=== PATIENT | female | born 1950 | race Caucasian/White ===

== ENCOUNTER 2020-11-13 22:13 | Inpatient (IN) | payer MEDICARE, OTHER, SELFPAY ==
[2020-11-13] VITALS (7 sets, daily range): BP systolic 102–109; BP diastolic 50–54; PULSE 64–99; RESP 19–30; TEMP 36.5; O2SAT 93–100
--- NOTE | 2020-11-13 22:28 | DI.CT.S_ITS ---
PROCEDURE: CT HEAD/BRAIN WO CON INDICATIONS: AMS TECHNIQUE: Noncontrast 4.5 mm thick angled axial sections acquired from the foramen magnum to the vertex, with coronal and sagittal reformats. For radiation dose reduction, the following was used: automated exposure control, adjustment of mA and/or kV according to patient size. COMPARISON: None. FINDINGS: Image quality: Excellent. CSF spaces: Basal cisterns are patent. No extra-axial fluid collections. The ventricles are symmetric in size and shape. Brain: No intracranial bleeds or masses. There is cerebral volume loss for age, with resultant ventricular and sulcal prominence. There are periventricular and deep white matter chronic small vessel ischemic changes. There is intracranial internal carotid artery atherosclerosis. Skull and face: Calvarium and visualized facial bones appear intact, without suspicious lesions. Sinuses: Visualized sinuses and mastoids are clear. IMPRESSION: No acute intracranial disease process. Dictated by: Velia John MD, PhD on 11/14/2020 at 7:21 Approved by: Velia John MD, PhD on 11/14/2020 at 7:22
--- NOTE | 2020-11-13 22:29 | ED_ITS ---
HPI - Nausea/Vomiting/Diarrhea General Chief complaint: Nausea/Vomiting/Diarrhea Stated complaint: vomiting/ Time Seen by Provider: 11/13/20 22:26 Source: patient and family () Mode of arrival: Wheelchair Limitations: no limitations History of Present Illness HPI Narrative: Patient is a 69-year-old female who arrives to the emergency department by private vehicle for evaluation of 3 days of nausea vomiting and diarrhea. According to the patient's and the patient she has had multiple falls during this time. She states that she has become very lightheaded when she stands up. In triage there was a short period of time where the triage nurse states that the patient became unresponsive. She seems to be much better laying in a supine position. Patient states that she has had black colored stools over the past couple days. Over the past 24 hours has also vomited a substance which the thought was very dark colored. She denies alcohol use. Occasionally uses nonsteroidal anti-inflammatories but not and they long time. States she only occasionally uses aspirin as well. Had a col onoscopy approximately 1.5 years ago. She states the took polyps out at the time and was told to follow-up in 3 years. No recent travel. No recent antibiotic use. Related Data Home Medications Medication Instructions Recorded Confirmed CA PANTOTHENATE/FOLIC ACID/VIT 1 tab PO Q DAY #0 06/22/11 11/14/20 (MULTIVITAMIN) CHOLECALCIFEROL (VITAMIN D3) 2,000 iu PO Q DAY #0 06/22/11 11/14/20 (Vitamin D) MAGNESIUM (#LIQUID MAGNESIUM) 500 mg PO Q DAY #0 06/22/11 11/14/20 adalimumab [Humira] 028 Days #2 04/07/12 levothyroxine [Synthroid] 75 mcg PO DAILY 090 Days #90 04/07/12 11/14/20 losartan 60 mg PO DAILY 090 Days #270 04/07/12 11/14/20 metformin [Glucophage] 500 mg PO DAILY 090 Days #270 04/07/12 11/14/20 spironolactone 25 mg PO DAILY 090 Days #90 04/07/12 11/14/20 aspirin 81 mg PO DAILY 11/14/20 11/14/20 atorvastatin 10 mg PO BEDTIME 11/14/20 11/14/20 folic acid 800 mcg PO DAILY 11/14/20 11/14/20 sitagliptin [Januvia] 50 mg PO DAILY 11/14/20 11/14/20 Allergies Allergy/AdvReac Type Severity Reaction Status Date / Time No Known Drug Allergies Allergy Verified 11/13/20 23:52 Review of Systems Constitutional Constitutional: Reports fatigue, Denies fever(s), Denies headache(s), Reports lethargy, Reports malaise and Reports weakness Eyes Eyes: Denies change in vision ENT Ears, Nose, Mouth, and Throat: Denies vertigo, Reports dizziness, Denies headache(s), Reports disequilibrium and Denies sore throat Cardiovascular Cardiovascular: Denies chest pain, Denies rapid heart rate and Denies dyspnea Respiratory Respiratory: Denies dyspnea Gastrointestinal Gastrointestinal: Reports melena, Reports coffee ground emesis, Reports diarrhea, Reports nausea and Reports vomiting Genitourinary Genitourinary: Denies dysuria Genitourinary: Denies dysuria and Denies vaginal discharge Musculoskeletal Musculoskeletal: Denies arthralgias and Denies myalgias Integumentary/Breasts Skin/Breast: Denies lesions and Denies rash Neurologic Neurologic: Reports confusion, Denies vertigo, Reports dizziness, Denies headache(s), Denies localized weakness, Reports disequilibrium and Reports weakness Psychiatric Psychiatric: Reports confusion Endocrine Endocrine: Reports fatigue Hematologic/Lymphatic Hematologic/Lymphatic: Denies easy bleeding and Denies easy bruising On Anticoagulants: No Allergic/Immunologic Allergic/Immunologic: Denies urticaria Patient History Medical History Acquired hypothyroidism Essential hypertension History of colon polyps Hyperlipidemia Non-insulin dependent type 2 diabetes mellitus Psoriasis Surgical History (Updated 11/14/20 @ 03:35 by JESÚS Mike) History of colonoscopy History of hysterectomy Family History (Updated 11/14/20 @ 04:10 by JESÚS Mike) Father Cancer Mother Cancer Social History marital status: lives independently: Yes Exam Initial Vital Signs Initial Vital Signs: Vital Signs Temperature 97.7 F 11/13/20 22:24 Pulse Rate 94 H 11/13/20 22:24 Respiratory Rate 22 11/13/20 22:24 Blood Pressure 106/54 L 11/13/20 22:24 Pulse Oximetry 93 11/13/20 22:24 Const General: ill appearing Limitations: mental status not altered HENIL Head: normal to inspection and normocephalic Ears: hearing grossly normal bilaterally Face and sinus: normal facial exam Eyes EOM: EOM intact bilaterally Chest Chest: No crepitus and No tenderness Resp Effort & Inspection: normal respiratory effort Auscultation: clear to auscultation bilaterally Cardio Rate: regular rate Rhythm: regular rhythm GI Palpation: soft, No firm and No tender Rectal Exam: heme positive stool Skin Lesions: no lesions Rashes: no rashes Neuro General: patient alert, patient awake and patient oriented x3 Cranial Nerves: CN's II-XI intact bilaterally Cognition: normal cognition Speech: speech normal Extrem General: capillary refill normal Psych Appearance: grossly normal and well kempt Scores GCS [place] coma scale eye opening: Spontaneous [place] coma scale verbal response: Orientated [place] coma scale motor response: Obey commands [place] coma scale total score: 15 Course Orders Ordered: ED Orders 11/13/20 22:20 Partial Thromboplastin Time Stat Prothrombin Time INR Stat 11/13/20 22:23 COVID19 Stat Complete Blood Count AUTO DIFF Stat Comprehensive Metabolic Panel Stat Ethanol (ETOH) Stat Ketones (Beta-Hydroxybutyrate) Stat Lactate (Lactic Acid) Stat Lipase Stat Magnesium Stat Phosphorous Stat Procalcitonin Stat Troponin & CK Cardiac Panel Stat 11/13/20 22:28 CT head/brain wo con Stat EKG-12 Lead Stat 11/13/20 22:44 CT abdomen pelvis wo con Stat 11/13/20 22:45 Ammonia (NH3) Stat Packed Cells Stat Type and Screen Stat 11/14/20 00:27 Venous Blood Gas Stat 11/14/20 01:16 Blood Culture Stat Dextrose (Dextrose 50 % In Water 25 Gm/50 Ml Syringe) 25 gm IV PRN PRN; Protocol PRN Reason: Hypoglycemia Hydromorphone HCl (Hydromorphone 0.5 Mg Inj) 0.5 mg IV Q6H PRN PRN Reason: Pain, Moderate (4-6) Sodium Chloride (Normal Saline 0.9%) 1,000 mls @ 150 mls/hr IV CONT EUSEBIA Pantoprazole Sodium 80 mg/ (Sodium Chloride) 100 mls @ 10 mls/hr IV CONT EUSEBIA Stop: 11/17/20 01:16 Last Admin: 11/14/20 01:50 Dose: 8 mg/hr, 10 mls/hr Documented by: ARELY Piperacillin/Tazobactam/Dextrose (Zosyn) 3.375 gm in 50 mls @ 100 mls/hr IV Q6H [facility] [place] Last Admin: 11/14/20 03:54 Dose: Not Given Documented by: KASHMIR Insulin Aspart (Insulin Aspart 100 Unit/Ml Insuln Pen) 0 unit SUBCUT ACHS [facility] [place]; Protocol Levothyroxine Sodium (Levothyroxine Inj 100 Mcg/5 Ml Vial) 75 mcg IV DAILY@1700 EUSEB[place] Naloxone HCl (Naloxone 0.4 Mg/Ml Vial) 0.2 mg IV Q2MIN PRN PRN Reason: Opiate Reversal Ondansetron HCl (Ondansetron 4 Mg/2 Ml Inj) 4 mg IV Q8HR PRN PRN Reason: Nausea And Vomiting Discontinued Medications Sodium Chloride (Normal Saline 0.9%) 1,000 mls @ 1,000 mls/hr IV BOLUS ONE Stop: 11/13/20 23:26 Last Infusion: 11/14/20 04:51 Dose: 0 mls/hr Documented by: Admin: 11/14/20 04:00 Dose: 1,000 mls/hr Documented by: KASHMIR Sodium Chloride (Normal Saline 0.9%) 1,000 mls @ 150 mls/hr IV CONT EUSEBIA Sodium Chloride (Normal Saline 0.9%) 1,000 mls @ 100 mls/hr IV CONT EUSEBIA Last Admin: 11/13/20 23:41 Dose: 100 mls/hr Documented by: ARELY Piperacillin/Tazobactam/Dextrose (Zosyn) 3.375 gm in 50 mls @ 100 mls/hr IV NOW ONE Stop: 11/14/20 01:24 Last Infusion: 11/14/20 01:43 Dose: 0 mls/hr Documented by: Admin: 11/14/20 01:07 Dose: 100 mls/hr Documented by: ARELY Pantoprazole Sodium 80 mg/ (Sodium Chloride) 100 mls @ 10 mls/hr IV CONT EUSEBIA Sodium Chloride (Normal Saline 0.9%) 500 mls @ 1,000 mls/hr IV BOLUS ONE Stop: 11/14/20 04:25 Last Admin: 11/14/20 04:00 Dose: 1,000 mls/hr Documented by: SSARDEL Ondansetron HCl (Ondansetron 4 Mg/2 Ml Inj) 4 mg IV NOW ONE Stop: 11/13/20 23:45 Last Admin: 11/13/20 23:45 Dose: Not Given Documented by: ARELY Pantoprazole Sodium (Pantoprazole 40 Mg Vial) 80 mg IV NOW ONE Stop: 11/14/20 00:55 Last Admin: 11/14/20 01:05 Dose: 80 mg Documented by: ARELY Vital Signs Vital signs: Vital Signs - 8 hr 11/13/20 22:24 11/13/20 23:00 11/13/20 23:12 Temperature 97.7 F Pulse Rate 94 H 95 H 93 H Respiratory Rate 22 19 30 H Blood Pressure 106/54 L 109/54 L Pulse Oximetry 93 100 100 11/13/20 23:34 11/13/20 23:38 11/13/20 23:40 Temperature Pulse Rate 64 99 H 96 H Respiratory Rate 25 H 29 H Blood Pressure 102/50 L 105/51 L Pulse Oximetry 98 100 100 11/13/20 23:50 11/14/20 00:00 11/14/20 00:10 Temperature Pulse Rate 92 H 99 H 99 H Respiratory Rate 23 24 25 H Blood Pressure 103/53 L 106/53 L 103/52 L Pulse Oximetry 100 100 100 11/14/20 00:20 11/14/20 00:30 11/14/20 00:40 Temperature Pulse Rate 97 H 95 H 104 H Respiratory Rate 25 H 27 H 27 H Blood Pressure 104/54 L 97/51 L 101/48 L Pulse Oximetry 100 100 99 11/14/20 00:44 11/14/20 00:50 11/14/20 00:52 Temperature 97.8 F 97.8 F Pulse Rate 107 H 99 H 101 H Respiratory Rate 25 H 27 H 25 H Blood Pressure 101/48 L 111/53 L 111/53 L Pulse Oximetry 100 100 11/14/20 01:00 Temperature Pulse Rate 98 H Respiratory Rate Blood Pressure 101/52 L Pulse Oximetry 100 MDM - Nausea/Vomiting/Diarrhea Medical Records Attestation: I reviewed the patient's medical records. Lab Data Attestation: I reviewed the patient's lab results. Result diagrams: 11/14/20 03:26 11/13/20 22:23 Labs: Lab Results 11/13/20 11/13/20 11/13/20 Range/Units 22:20 22:23 22:23 WBC 30.4 H* (4.5-11.0) X10^3/uL RBC 1.70 L (4.0-5.2) X10^6/uL Hgb 4.2 L* (12.0-16.0) g/dL Hct 14.2 L* (36-46) % MCV 83.5 (80-100) fL MCH 24.9 L (26-34) PG MCHC 29.8 L (30-36) % RDW 19.8 H (11.6-14.8) % Plt Count 287 (150-400) X10^3/uL Neut % (Auto) Not Reportable Lymph % (Auto) Not Reportable Sullivan % (Auto) Not Reportable Eos % (Auto) Not Reportable Baso % (Auto) Not Reportable Lymph # (Auto) Not Reportable Sullivan # (Auto) Not Reportable Baso # (Auto) Not Reportable Total Counted 100 Seg Neutrophils % 78.0 H (38-70) % Lymphocytes % (Manual) 20.0 L (25-45) % Monocytes % (Manual) 2.0 (2-11) % Neutrophils # (Manual) 23259 H (3449-5928) /uL Nucleated RBCs 1 H ( - 0) #/Diff RBC Morphology Not Reportable Anisocytosis 2+ H PT 15.7 H (10.1-12.7) SECONDS INR 1.4 H (0.9-1.3) APTT 26 L (26.4-36.2) SECONDS VBG pH (7.33-7.43) VBG pCO2 (45-50) mmHg VBG pO2 (35-45) mmHg VBG HCO3 (23-28) mmol/L VBG Total CO2 (24-29) mmol/L VBG O2 Saturation (70-75) % VBG Base Excess (0-4) mmol/L Sodium (137-145) mmol/L Potassium (3.4-5.1) mmol/L Chloride (98-107) mmol/L Carbon Dioxide (22-32) mmol/L BUN (7-17) mg/dL Creatinine (0.52-1.04) mg/dL Estimated GFR (>60) mL/min BUN/Creatinine Ratio (6-22) Glucose (80-110) mg/dL Lactate (0.7-2.1) mmol/L Calcium (8.4-10.2) mg/dL Phosphorus (2.8-4.1) mg/dL Magnesium (1.6-2.3) mg/dL Total Bilirubin (0.2-1.3) mg/dL AST (14-36) IU/L ALT (<35) IU/L Alkaline Phosphatase (38-126) U/L Ammonia (9-30) umol/L Total Creatine Kinase (30-135) U/L CK-MB (CK-2) (<2.37) ng/mL CK-MB (CK-2) Rel Index (1.5-5.0) % Troponin I (0.01-0.034) ng/mL Total Protein (6.3-8.2) g/dL Albumin (3.5-5.0) g/dL Globulin (1.7-4.1) g/dL Albumin/Globulin Ratio (1.0-2.8) Lipase (23-300) U/L Procalcitonin (<0.5) ng/mL Ethyl Alcohol ( - 10) mg/dL Ketones (<0.27) mmol/L SARS-CoV-2 (PCR) Negative (Negative) Blood Type Antibody Screen Crossmatch 11/13/20 11/13/20 11/13/20 Range/Units 22:23 22:23 22:23 WBC (4.5-11.0) X10^3/uL RBC (4.0-5.2) X10^6/uL Hgb (12.0-16.0) g/dL Hct (36-46) % MCV (80-100) fL MCH (26-34) PG MCHC (30-36) % RDW (11.6-14.8) % Plt Count (150-400) X10^3/uL Neut % (Auto) Lymph % (Auto) Sullivan % (Auto) Eos % (Auto) Baso % (Auto) Lymph # (Auto) Sullivan # (Auto) Baso # (Auto) Total Counted Seg Neutrophils % (38-70) % Lymphocytes % (Manual) (25-45) % Monocytes % (Manual) (2-11) % Neutrophils # (Manual) (0685-5900) /uL Nucleated RBCs ( - 0) #/Diff RBC Morphology Anisocytosis PT (10.1-12.7) SECONDS INR (0.9-1.3) APTT (26.4-36.2) SECONDS VBG pH (7.33-7.43) VBG pCO2 (45-50) mmHg VBG pO2 (35-45) mmHg VBG HCO3 (23-28) mmol/L VBG Total CO2 (24-29) mmol/L VBG O2 Saturation (70-75) % VBG Base Excess (0-4) mmol/L Sodium 138 (137-145) mmol/L Potassium 4.6 (3.4-5.1) mmol/L Chloride 105 (98-107) mmol/L Carbon Dioxide 11 L (22-32) mmol/L BUN 106 H* (7-17) mg/dL Creatinine 2.38 H (0.52-1.04) mg/dL Estimated GFR 20.3 L (>60) mL/min BUN/Creatinine Ratio 44.5 H (6-22) Glucose 205 H (80-110) mg/dL Lactate (0.7-2.1) mmol/L Calcium 9.8 (8.4-10.2) mg/dL Phosphorus 7.8 H (2.8-4.1) mg/dL Magnesium 2.3 (1.6-2.3) mg/dL Total Bilirubin 0.3 (0.2-1.3) mg/dL AST 63 H (14-36) IU/L ALT 66 H (<35) IU/L Alkaline Phosphatase 112 (38-126) U/L Ammonia (9-30) umol/L Total Creatine Kinase 164 H (30-135) U/L CK-MB (CK-2) 4.26 H (<2.37) ng/mL CK-MB (CK-2) Rel Index 2.6 (1.5-5.0) % Troponin I 0.037 H (0.01-0.034) ng/mL Total Protein 6.0 L (6.3-8.2) g/dL Albumin 3.2 L (3.5-5.0) g/dL Globulin 2.8 (1.7-4.1) g/dL Albumin/Globulin Ratio 1.1 (1.0-2.8) Lipase 516 H (23-300) U/L Procalcitonin 0.28 (<0.5) ng/mL Ethyl Alcohol < 10 ( - 10) mg/dL Ketones 0.49 H (<0.27) mmol/L SARS-CoV-2 (PCR) (Negative) Blood Type Antibody Screen Crossmatch 11/13/20 11/13/20 11/13/20 Range/Units 22:23 22:45 22:45 WBC (4.5-11.0) X10^3/uL RBC (4.0-5.2) X10^6/uL Hgb (12.0-16.0) g/dL Hct (36-46) % MCV (80-100) fL MCH (26-34) PG MCHC (30-36) % RDW (11.6-14.8) % Plt Count (150-400) X10^3/uL Neut % (Auto) Lymph % (Auto) Sullivan % (Auto) Eos % (Auto) Baso % (Auto) Lymph # (Auto) Sullivan # (Auto) Baso # (Auto) Total Counted Seg Neutrophils % (38-70) % Lymphocytes % (Manual) (25-45) % Monocytes % (Manual) (2-11) % Neutrophils # (Manual) (1613-2524) /uL Nucleated RBCs ( - 0) #/Diff RBC Morphology Anisocytosis PT (10.1-12.7) SECONDS INR (0.9-1.3) APTT (26.4-36.2) SECONDS VBG pH (7.33-7.43) VBG pCO2 (45-50) mmHg VBG pO2 (35-45) mmHg VBG HCO3 (23-28) mmol/L VBG Total CO2 (24-29) mmol/L VBG O2 Saturation (70-75) % VBG Base Excess (0-4) mmol/L Sodium (137-145) mmol/L Potassium (3.4-5.1) mmol/L Chloride (98-107) mmol/L Carbon Dioxide (22-32) mmol/L BUN (7-17) mg/dL Creatinine (0.52-1.04) mg/dL Estimated GFR (>60) mL/min BUN/Creatinine Ratio (6-22) Glucose (80-110) mg/dL Lactate 12.6 H* (0.7-2.1) mmol/L Calcium (8.4-10.2) mg/dL Phosphorus (2.8-4.1) mg/dL Magnesium (1.6-2.3) mg/dL Total Bilirubin (0.2-1.3) mg/dL AST (14-36) IU/L ALT (<35) IU/L Alkaline Phosphatase (38-126) U/L Ammonia 19 (9-30) umol/L Total Creatine Kinase (30-135) U/L CK-MB (CK-2) (<2.37) ng/mL CK-MB (CK-2) Rel Index (1.5-5.0) % Troponin I (0.01-0.034) ng/mL Total Protein (6.3-8.2) g/dL Albumin (3.5-5.0) g/dL Globulin (1.7-4.1) g/dL Albumin/Globulin Ratio (1.0-2.8) Lipase (23-300) U/L Procalcitonin (<0.5) ng/mL Ethyl Alcohol ( - 10) mg/dL Ketones (<0.27) mmol/L SARS-CoV-2 (PCR) (Negative) Blood Type O Positive Antibody Screen Negative Crossmatch See Detail 11/14/20 Range/Units 00:27 WBC (4.5-11.0) X10^3/uL RBC (4.0-5.2) X10^6/uL Hgb (12.0-16.0) g/dL Hct (36-46) % MCV (80-100) fL MCH (26-34) PG MCHC (30-36) % RDW (11.6-14.8) % Plt Count (150-400) X10^3/uL Neut % (Auto) Lymph % (Auto) Sullivan % (Auto) Eos % (Auto) Baso % (Auto) Lymph # (Auto) Sullivan # (Auto) Baso # (Auto) Total Counted Seg Neutrophils % (38-70) % Lymphocytes % (Manual) (25-45) % Monocytes % (Manual) (2-11) % Neutrophils # (Manual) (2185-7117) /uL Nucleated RBCs ( - 0) #/Diff RBC Morphology Anisocytosis PT (10.1-12.7) SECONDS INR (0.9-1.3) APTT (26.4-36.2) SECONDS VBG pH 7.25 L (7.33-7.43) VBG pCO2 32.9 L (45-50) mmHg VBG pO2 23 L (35-45) mmHg VBG HCO3 15 L (23-28) mmol/L VBG Total CO2 16 L (24-29) mmol/L VBG O2 Saturation 32 L (70-75) % VBG Base Excess -13.0 L (0-4) mmol/L Sodium (137-145) mmol/L Potassium (3.4-5.1) mmol/L Chloride (98-107) mmol/L Carbon Dioxide (22-32) mmol/L BUN (7-17) mg/dL Creatinine (0.52-1.04) mg/dL Estimated GFR (>60) mL/min BUN/Creatinine Ratio (6-22) Glucose (80-110) mg/dL Lactate (0.7-2.1) mmol/L Calcium (8.4-10.2) mg/dL Phosphorus (2.8-4.1) mg/dL Magnesium (1.6-2.3) mg/dL Total Bilirubin (0.2-1.3) mg/dL AST (14-36) IU/L ALT (<35) IU/L Alkaline Phosphatase (38-126) U/L Ammonia (9-30) umol/L Total Creatine Kinase (30-135) U/L CK-MB (CK-2) (<2.37) ng/mL CK-MB (CK-2) Rel Index (1.5-5.0) % Troponin I (0.01-0.034) ng/mL Total Protein (6.3-8.2) g/dL Albumin (3.5-5.0) g/dL Globulin (1.7-4.1) g/dL Albumin/Globulin Ratio (1.0-2.8) Lipase (23-300) U/L Procalcitonin (<0.5) ng/mL Ethyl Alcohol ( - 10) mg/dL Ketones (<0.27) mmol/L SARS-CoV-2 (PCR) (Negative) Blood Type Antibody Screen Crossmatch Point of Care Testing Glucose POC [address] scan - head: Radiologist's Impression: No acute intracranial abnormality CT scan - abdomen/pelvis: Radiologist's Impression: Suspect colitis throughout the ascending transverse and descending colon segments Sigmoid colon diverticulosis without diverticulitis No free air-fluid ECG Data Attestation: I personally reviewed and interpreted this ECG as follows: Prior ECG tracings: not available for review Interpretation: Sinus rhythm Ventricular rate of 96 Normal axis Normal QRS Normal QTC No ST T wave changes MDM Narrative Medical decision making narrative: Patient does have black tarry stools that is Hemoccult positive. She has not vomited here in the ER. CT scan shows a aaron colitis. Patient is anemic. 2 units of packed red blood cells ordered and administered here in the ER. Also has an elevated lactate, elevated BUN, elevated creatinine and decreased GFR. I suspect all this is secondary to upper GI bleed. Unsure the exact etiology is the patient denies any of the common issues that would cause this. Patient was started on PPI. Discussed the case with General surgery who stated that they would be happy to see the patient however patient does need to be admitted to medicine for further resuscitation and evaluation. Discussed the case with and [facility] got [facility] provider. Patient was started on antibiotics. Blood cultures were obtained, I do have low suspicion for DKA. I suspect that the acidosis is secondary to the elevated lactate. Will admit for further evaluation and treatment. Critical Care Time Critical Care Time Critical Care Time: Yes Total Critical Care Time: 35 Attestation: The high probability of a clinically significant, sudden or life threatening deterioration of the hematologic, renal, cardiovascular system(s) required my full and direct attention, intervention and personal management. The aggregate critical care time was 35 minutes. This time is in addition to time spent performing reported procedures but includes the following: [X] Data Review and interpretation [X] Patient assessment and monitoring of vital signs [X] Documentation [X] Medication orders and management Discharge Plan Departure Patient Disposition: Admitted As Inpatient Clinical Impression: Acute GI bleeding, Anemia, Hyperglycemia Admit Date/Time: 11/14/20 01:02 Admit Provider: Juan F Summers
--- NOTE | 2020-11-13 22:44 | DI.CT.S_ITS ---
PROCEDURE: CT ABDOMEN PELVIS WO CON INDICATIONS: GI bleed TECHNIQUE: Noncontrast 5 mm thick sections acquired from the diaphragms to the symphysis. 5 mm coronal and sagittal reformats were then performed. For radiation dose reduction, the following was used: automated exposure control, adjustment of mA and/or kV according to patient size. COMPARISON: None. FINDINGS: Image quality: Excellent. ABDOMEN: Lung bases: Lung bases are clear. Heart size is normal. Solid organs: The liver has an irregular contour consistent with cirrhosis. No liver mass. Gallbladder is normal. Pancreas has multiple cysts of the head and body measuring up to 13 x 12 millimeters. No pancreatic ductal dilatation. Spleen is normal in size. The right adrenal gland has a mass measuring 2.9 x 2.7 centimeters and 9 Hounsfield units. The left adrenal gland is normal normal. The left kidney has a 9 x 12 millimeter calculus in the renal pelvis with no hydronephrosis. Peritoneum and bowel: Unenhanced bowel loops demonstrate normal wall thickness and caliber. No free fluid or air. Sigmoid colon diverticulosis without evidence of diverticulitis. Possible mural thickening involving the right hemicolon through the descending colon segment with mild surrounding edema. The appendix is not identified. The small bowel and stomach are normal. Nodes and vessels: No retroperitoneal or mesenteric adenopathy by size criteria. Aorta and inferior vena cava are normal in caliber. The aorta has atherosclerotic calcifications. Miscellaneous: No ventral hernias. PELVIS: Genitourinary: Bladder wall thickness is normal. Miscellaneous: No inguinal hernias or adenopathy. Bones: Degenerative changes with no focal abnormality. Grade 4 osteoarthritis of the right hip. No suspicious bony lesions. No vertebral body compression fractures. IMPRESSION: 1. Suspect colitis through the ascending, transverse, and descending colon segments. 2. Diverticulosis without evidence of diverticulitis. 3. No free air or free fluid. No pneumatosis. 4. 12 x 9 millimeter calculus in the left renal pelvis without hydronephrosis. 5. Low density nodule of the right adrenal gland consistent with a benign lipid rich adenoma. Comment: Final report is concordant with preliminary interpretation by [facility] Dictated by: Corby Tipton M.D. on 11/14/2020 at 8:01 Approved by: Corby Tipton M.D. on 11/14/2020 at 8:07
[2020-11-13 22:46] LABS: COVID19 -Nasal RAPID Negative (Negative); Mean Corpuscular HGB Conc 29.8 % (30-36); Mean Corpuscular Hemoglobin 24.9 PG (26-34); Mean Corpuscular Volume 83.5 fL (80-100); Platelet Count 287 X10^3/uL (150-400); Red Cell Distribution Width 19.8 % (11.6-14.8)
[2020-11-13 22:49] LABS: Albumin 3.2 g/dL (3.5-5.0); Albumin Globulin Ratio 1.1 (1.0-2.8); Alkaline Phosphatase 112 U/L (38-126); Aspartate Aminotransferase 63 IU/L (14-36); BUN Creatinine Ratio 44.5 (6-22); Bilirubin Total 0.3 mg/dL (0.2-1.3); Calcium 9.8 mg/dL (8.4-10.2); Carbon Dioxide 11 mmol/L (22-32); Chloride 105 mmol/L (98-107); Estimated Glomerular Filt Rate 20.3 mL/min (>60); Globulin 2.8 g/dL (1.7-4.1); Glucose 205 mg/dL (80-110); HEMOLYSIS < 15 (0-50); Potassium 4.6 mmol/L (3.4-5.1); Sodium 138 mmol/L (137-145)
[2020-11-13 22:52] LABS: Blood Urea Nitrogen 106 mg/dL (7-17)
[2020-11-13 22:53] LABS: Hemoglobin 4.2 g/dL (12.0-16.0); White Blood Cell Count 30.4 X10^3/uL (4.5-11.0)
[2020-11-13 22:54] LABS: Add Manual Diff / Slide Review YES; Hematocrit 14.2 % (36-46)
[2020-11-13 22:55] LABS: Alanine Aminotransferase 66 IU/L (<35)
[2020-11-13 23:02] LABS: INR 1.4 (0.9-1.3); Prothrombin Time 15.7 SECONDS (10.1-12.7)
[2020-11-13 23:03] LABS: Lactate (Lactic Acid) 12.6 mmol/L (0.7-2.1)
[2020-11-13 23:04] LABS: PTT Partial Thromboplastin Tim 26 SECONDS (26.4-36.2)
[2020-11-13 23:06] LABS: Creatine Kinase 164 U/L (30-135); Ethanol (ETOH) < 10 mg/dL; Lipase 516 U/L (23-300); Magnesium 2.3 mg/dL (1.6-2.3); Phosphorous 7.8 mg/dL (2.8-4.1)
[2020-11-13 23:15] LABS: Ammonia (NH3) 19 umol/L (9-30)
[2020-11-13 23:25] LABS: Troponin I 0.037 ng/mL (0.01-0.034)
[2020-11-13 23:32] LABS: Neutrophils Absolute Manual 23712 /uL (3000-5900); Nucleated Red Blood Cells 1 #/Diff; Total Cells Counted 100
[2020-11-13 23:36] LABS: Anisocytosis 2+
[2020-11-13 23:39] LABS: Procalcitonin 0.28 ng/mL (<0.5)
[2020-11-13] MEDS: SODIUM CHLORIDE 0.9% 1,000 ML 100 ML IV (23:41)
[2020-11-13] MEDS: ONDANSETRON 4 MG/2 ML INJ (23:41)
[2020-11-13 23:55] LABS: Ketones (Beta-Hydroxybutyrate) 0.49 mmol/L (<0.27)
[2020-11-14] VITALS (51 sets, daily range): BP systolic 73–137; BP diastolic 38–66; PULSE 76–107; RESP 15–35; TEMP 36.2–37.4; O2SAT 92–100; BMI 31.2
[2020-11-14 00:39] LABS: HCO3 VBG 15 mmol/L (23-28); Oxygen Saturation VBG 32 % (70-75); PCO2 VBG 32.9 mmHg (45-50); PO2 VBG 23 mmHg (35-45); Total CO2 VBG 16 mmol/L (24-29)
[2020-11-14 00:39] LABS: Reflexed Lactate in 2 Hours Y
[2020-11-14 00:40] LABS: pH VBG 7.25 (7.33-7.43)
[2020-11-14] MEDS: PANTOPRAZOLE 40 MG VIAL 80 MG IV (01:05)
[2020-11-14] MEDS: PIPERACILLIN-TAZO 3.375 GM/50 ML FROZ.PIGGY IV ×4 (01:07→19:07)
--- NOTE | 2020-11-14 01:25 | P.HP_ITS ---
History of Present Illness History of Present Illness Date Patient Seen: 11/14/20 Time Patient Seen: 02:45 Chief complaint: vomiting/ Narrative: Ms. Nicky Lopez is a 69-year-old female with a past medical history significant for hypertension, hyperlipidemia, [id number] diabetes type 2, psoriasis, hypothyroidism and colon polyps who presents to the emergency department with complaints of nausea, vomiting and diarrhea. The patient states her symptoms began 3 days ago with nausea vomiting developed coffee-ground emesis as well as red bloody diarrhea stool. The patient reports abdominal pain that is constant in the epigastrium and right upper quadrant with an overlay of crampy abdominal pain that is generalized. She dorsi history polyps found on colonoscopy in 2008 that was read told to return in the 3 years but has not followed up. She further reports associated fatigue and headache and has had sustained multiple falls at home in the last 3 days complaining of pain on palpation left buttock and left hip and left knee pain. Upon presentation to the ER in being taken back into the ER department the patient had a syncopal episode resolved with out intervention lying supine on stretcher. The patient denies complaints of fevers does endorse chills. She has headache and dizziness but denies nasal congestion or sore throat. She reports no chest pain or palpitations, shortness of breath and has an intermittent dry raspy cough. She has abdominal pain as described above with hematemesis. Patient reports normal bowel movements until 3 days ago developing hematochezia and melena. The patient has not yet stooled in the emergency department. The patient is typically ambulatory without use of assistive devices. Upon arrival to the ER the patient's temperature 97.7?, heart rate 94, blood pressure 106/54, respiratory rate of 22 saturating 93% on room air. Head CT is obtained related to falls finding no acute intracranial abnormalities. CT of the abdomen pelvis was completed without contrast related to the patient's chronic renal failure and low EGFR finding cirrhotic liver with no discrete mass in anterior pancreatic body water-dense and lesion measuring 13 x 12 mm. A right adrenal mass measuring 2.9 x 2.7 cm and a left renal pelvis is calculus measuring 11 x 9 mm, non distended:, sigmoid colon diverticulosis without inflammation, possible mural thickening involving the right hemicolon through the descending says colon segment with mild surrounding edema, no free air or fluid. Initial labs reveal a white count of 30.4 with neutrophils 23,712, hemoglobin of 4.2 and hematocrit of 14.2 with platelets of 287. She has a PT of 15.7, INR 1.4 and PTT of 26. Chemistry studies reveal a CO of 11, BUN 106, cr eatinine of 2.38 and a nonfasting glucose of 205. Magnesium is 2.3 and phosphate is 7.8. She has a total bilirubin of 0.3, AST is 60, AST of 66 and alkaline phosphatase of 112. Her albumin is 3.2. Lipase is elevated at 516. Serum ketones are 0.49, procalcitonin is 0.28 and lactic acid is 12.6 improving to 10.3 on re-evaluation. Total CK is 164 with a CK-MB being a 4.26 for an index of 2.6. Troponin is elevated at 0.037 in the setting of elevated creatinine. In the ER the patient received Zofran and was typed and screened and transfusion initiated with [address] Monsalve, general surgery, was contacted through the ER and and agrees contact. The patient received bolus of Protonix and started on Protonix infusion. The patient is admitted to the medicine service for acute severe anemia secondary to upper/lower GI bleeding. Patient History Medical History (Updated 11/14/20 @ 03:28 by JESÚS Mike) Acquired hypothyroidism Essential hypertension History of colon polyps Hyperlipidemia Non-insulin dependent type 2 diabetes mellitus Psoriasis Surgical History (Updated 11/14/20 @ 03:35 by JESÚS Mike) History of colonoscopy History of hysterectomy Family & Social History Family History (Updated 11/14/20 @ 04:09 by JESÚS Mike) Father Cancer Mother Cancer Meds Home Medications and Allergies Home Medications Medication Instructions Recorded Confirmed Type CA PANTOTHENATE/FOLIC ACID/VIT 1 tab PO Q DAY #0 06/22/11 11/14/20 History (MULTIVITAMIN) CHOLECALCIFEROL (VITAMIN D3) 2,000 iu PO Q DAY #0 06/22/11 11/14/20 History (Vitamin D) MAGNESIUM (#LIQUID MAGNESIUM) 500 mg PO Q DAY #0 06/22/11 11/14/20 History adalimumab [Humira] 028 Days #2 04/07/12 History levothyroxine [Synthroid] 75 mcg PO DAILY 090 Days #90 04/07/12 11/14/20 History losartan 60 mg PO DAILY 090 Days #270 04/07/12 11/14/20 History metformin [Glucophage] 500 mg PO DAILY 090 Days #270 04/07/12 11/14/20 History spironolactone 25 mg PO DAILY 090 Days #90 04/07/12 11/14/20 History aspirin 81 mg PO DAILY 11/14/20 11/14/20 History atorvastatin 10 mg PO BEDTIME 11/14/20 11/14/20 History folic acid 800 mcg PO DAILY 11/14/20 11/14/20 History sitagliptin [Januvia] 50 mg PO DAILY 11/14/20 11/14/20 History Allergies Allergy/AdvReac Type Severity Reaction Status Date / Time No Known Drug Allergies Allergy Verified 11/13/20 23:52 Review of Systems Review of Systems ROS: Yes All systems reviewed with the patient and are negative except as otherwise documented Exam Vital Signs (past 8 hours): - 11/13/20 22:24 11/13/20 23:00 11/13/20 23:12 Temperature 97.7 F Pulse Rate 94 H 95 H 93 H Respiratory Rate 22 19 30 H Blood Pressure 106/54 L 109/54 L Pulse Oximetry 93 100 100 11/13/20 23:34 11/13/20 23:38 11/13/20 23:40 Temperature Pulse Rate 64 99 H 96 H Respiratory Rate 25 H 29 H Blood Pressure 102/50 L 105/51 L Pulse Oximetry 98 100 100 11/14/20 00:44 11/14/20 00:52 11/14/20 01:08 Temperature 97.8 F 97.8 F 98.2 F Pulse Rate 107 H 101 H 96 H Respiratory Rate 25 H 25 H 22 Blood Pressure 101/48 L 111/53 L 100/50 L Pulse Oximetry 100 Oxygen Delivery Method Room Air Narrative Exam Narrative: GENERAL APPEARANCE: well developed, obese female who is briskly interactive in n o acute distress. HEENT: Normocephalic, PERRLA, sclerae is pale, EOMs intact without nystagmus, no sinus tenderness to percussion, no rhinorrhea, mucous membranes are moist and dry and pale with black hairy tongue. NECK/THYROID: Minimal tenderness to palpation without muscular spasm, no step-offs,, no JVD, no carotid bruit, no thyromegaly, trachea midline. LYMPH NODES: no cervical or supraclavicular lymphadenopathy. SKIN: Pale, warm and dry, poor skin turgor, darkened appearance, patchy psor iasis, abrasion left anterior knee. HEART: regular rate and rhythm, S1-S2, 1/6 systolic murmur, no rubs or gallops, brisk capillary refill, no edema LUNGS: clear to auscultation bilaterally, no coarseness crackles or wheezing, no cough present CHEST: Symmetrical movement, no accessory muscle use, good tidal volume no pain to AP and lateral compression.. ABDOMEN: Soft, no distention, epigastric pain and right upper quadrant pain on palpation without guarding or peritoneal signs, no organomegaly, no flank or suprapubic tenderness, active bowel tones. BACK: Nontender to palpation EXTREMITIES: Patient complains of left knee pain without deformity or effusion, preserved range of motion,, strength is 5/5 and symmetrical. NEUROLOGIC: AAO x to person place and time, no lateralizing neurologic deficits, cranial nerves II-XII grossly intact, sensation intact to light touch, hearing grossly normal to speech. PSYCH: Good eye contact, linear thought, cooperative, stable behavior. Objective Labs Result Diagrams: 11/13/20 22:23 11/13/20 22:23 Labs: Laboratory Results - last 24 hr 11/13/20 11/13/20 11/13/20 22:20 22:23 22:23 WBC 30.4 H* RBC 1.70 L Hgb 4.2 L* Hct 14.2 L* MCV 83.5 MCH 24.9 L MCHC 29.8 L RDW 19.8 H Plt Count 287 Neut % (Auto) Not Reportable Lymph % (Auto) Not Reportable [place] % (Auto) Not Reportable Eos % (Auto) Not Reportable Baso % (Auto) Not Reportable Lymph # (Auto) Not Reportable [place] # (Auto) Not Reportable Baso # (Auto) Not Reportable Total Counted 100 Seg Neutrophils % 78.0 H Lymphocytes % (Manual) 20.0 L Monocytes % (Manual) 2.0 Neutrophils # (Manual) 15729 H Nucleated RBCs 1 H RBC Morphology Not Reportable Anisocytosis 2+ H PT 15.7 H INR 1.4 H APTT 26 L VBG pH VBG pCO2 VBG pO2 VBG HCO3 VBG Total CO2 VBG O2 Saturation VBG Base Excess Sodium Potassium Chloride Carbon Dioxide BUN Creatinine Estimated GFR BUN/Creatinine Ratio Glucose Lactate Calcium Phosphorus Magnesium Total Bilirubin AST ALT Alkaline Phosphatase Ammonia Total Creatine Kinase Troponin I Total Protein Albumin Globulin Albumin/Globulin Ratio Lipase Procalcitonin Ethyl Alcohol Ketones SARS-CoV-2 (PCR) Negative Blood Type Antibody Screen Crossmatch 11/13/20 11/13/20 11/13/20 22:23 22:23 22:23 WBC RBC Hgb Hct MCV MCH MCHC RDW Plt Count Neut % (Auto) Lymph % (Auto) [place] % (Auto) Eos % (Auto) Baso % (Auto) Lymph # (Auto) [place] # (Auto) Baso # (Auto) Total Counted Seg Neutrophils % Lymphocytes % (Manual) Monocytes % (Manual) Neutrophils # (Manual) Nucleated RBCs RBC Morphology Anisocytosis PT INR APTT VBG pH VBG pCO2 VBG pO2 VBG HCO3 VBG Total CO2 VBG O2 Saturation VBG Base Excess Sodium 138 Potassium 4.6 Chloride 105 Carbon Dioxide 11 L BUN 106 H* Creatinine 2.38 H Estimated GFR 20.3 L BUN/Creatinine Ratio 44.5 H Glucose 205 H Lactate Calcium 9.8 Phosphorus 7.8 H Magnesium 2.3 Total Bilirubin 0.3 AST 63 H ALT 66 H Alkaline Phosphatase 112 Ammonia Total Creatine Kinase 164 H Troponin I 0.037 H Total Protein 6.0 L Albumin 3.2 L Globulin 2.8 Albumin/Globulin Ratio 1.1 Lipase 516 H Procalcitonin 0.28 Ethyl Alcohol < 10 Ketones 0.49 H SARS-CoV-2 (PCR) Blood Type Antibody Screen Crossmatch 11/13/20 11/13/20 11/13/20 22:23 22:45 22:45 WBC RBC Hgb Hct MCV MCH MCHC RDW Plt Count Neut % (Auto) Lymph % (Auto) [place] % (Auto) Eos % (Auto) Baso % (Auto) Lymph # (Auto) [place] # (Auto) Baso # (Auto) Total Counted Seg Neutrophils % Lymphocytes % (Manual) Monocytes % (Manual) Neutrophils # (Manual) Nucleated RBCs RBC Morphology Anisocytosis PT INR APTT VBG pH VBG pCO2 VBG pO2 VBG HCO3 VBG Total CO2 VBG O2 Saturation VBG Base Excess Sodium Potassium Chloride Carbon Dioxide BUN Creatinine Estimated GFR BUN/Creatinine Ratio Glucose Lactate 12.6 H* Calcium Phosphorus Magnesium Total Bilirubin AST ALT Alkaline Phosphatase Ammonia 19 Total Creatine Kinase Troponin I Total Protein Albumin Globulin Albumin/Globulin Ratio Lipase Procalcitonin Ethyl Alcohol Ketones SARS-CoV-2 (PCR) Blood Type O Positive Antibody Screen Negative Crossmatch See Detail 11/14/20 00:27 WBC RBC Hgb Hct MCV MCH MCHC RDW Plt Count Neut % (Auto) Lymph % (Auto) [place] % (Auto) Eos % (Auto) Baso % (Auto) Lymph # (Auto) [place] # (Auto) Baso # (Auto) Total Counted Seg Neutrophils % Lymphocytes % (Manual) Monocytes % (Manual) Neutrophils # (Manual) Nucleated RBCs RBC Morphology Anisocytosis PT INR APTT VBG pH 7.25 L VBG pCO2 32.9 L VBG pO2 23 L VBG HCO3 15 L VBG Total CO2 16 L VBG O2 Saturation 32 L VBG Base Excess -13.0 L Sodium Potassium Chloride Carbon Dioxide BUN Creatinine Estimated GFR BUN/Creatinine Ratio Glucose Lactate Calcium Phosphorus Magnesium Total Bilirubin AST ALT Alkaline Phosphatase Ammonia Total Creatine Kinase Troponin I Total Protein Albumin Globulin Albumin/Globulin Ratio Lipase Procalcitonin Ethyl Alcohol Ketones SARS-CoV-2 (PCR) Blood Type Antibody Screen Crossmatch Assessment & Plan Assessment & Plan narrative: This is a 69-year-old female patient history of [id number] diabetes, hypertension, and hyperlipidemia presents to the ER with 3 days nausea vomiting diarrhea coffee-ground emesis and black red stools. 1. GI bleeding, acute, probable upper and lower, present on admission, active. -patient with epigastric tenderness and reports coffee-ground emesis as well as red and black stools. The patient has had symptoms for 3 days. -she presents with a hemoglobin of 4.2 and hematocrit of 14.2. She also has an elevated PT of 15.7 and INR 1.4. BUN is 106. Anion gap is 22 And lactate is 12.6 with CO on chemistry of 11. -imaging reveals aaron colitis with no free air-fluid with colonic thickening and no distension. -patient is being transfused 2 units packed cells that is initiated in the emergency department. -will recheck H&H following transfusion with anticipation of the patient requiring additional units. -the patient is initially changes 4.2 in consideration the patient presenting with elevated INR 4.4 will ask blood bank to keep 2 units ahead. -the patient has cirrhosis identified on CT imaging without patient's knowledge of pre-existing condition. Concern for portal hypertension and associated esophageal or gastric varices -Dr. Monsalve has been contacted the emergency department and agrees to consult. We appreciate her evaluation recommendations. -the patient has received Protonix bolus of 80 mg and infusion 8 mg an hour. -patient remained NPO, normal saline at 150 cc/hour. -will closely follow blood count, chemistries and coagulation. 2. Colitis, acute, present on admission, active -patient complains of abdominal pain constant in nature with pain on palpation right upper quadrant. -Image reveals possible mural thickening involving the right hemicolon through the descending colon with mild surrounding edema. There is no free air or fluid and no distension. -patient has elevated white count at 30.4 with neutrophils of 23,712. Procalcitonin is non negative at 0.28. -ordered Zosyn 3.375 g IV every 6 hours with 1st dose administered in the emergency department. -will closely follow CBC and recheck procalcitonin. 3. Elevated creatinine, probable acute kidney injury, present on admission, a ctive. -patient denies history of chronic renal failure however has markedly dry discolored skin consistent with chronic renal failure, there are no baseline creatinine is for comparison over the patient presents with a creatinine 2.38. -this may reflective of dehydration and ischemia with the patient with a hemoglobin of 4.2 and also ketones 0.49. -the patient is resuscitated with normal saline 100 cc hours well as blood transfusion. -recheck chemistries and renal function in the morning 4. Metabolic acidosis, acute, present on admission, active. -patient presents with a lactic acid of 12.6, CO on chemistry of 11, a VBG with a pH of 7.25, bicarb of 13 and a base excess of -13. -the patient is dehydrated and presents with probable acute kidney injury limiting renal compensation however is tachypneic at a respiratory rate of 22. -ordered Broderick catheter as the patient has not yet voided for urinalysis and accurate assessment urinary output. -continue rehydration with normal saline and blood transfusion. -will recheck lactate for adequacy of fluid resuscitation and monitor chemistries. -will closely monitor the patient to assess for symptoms of fluid overload. 5. Liver cirrhosis, present on admission, active -the patient is unaware of liver cirrhosis identified on CT scan but is c onsistent with mildly elevated AST and ALT and elevated INR 1.4 -will order FFP if INR increases to 1.5 and or the patient continues significant bleeding. -will obtain a right upper quadrant ultrasound -, obtain hepatitis panel. -will recheck INR with morning labs. 6. Elevated troponin, acute, present on admission, active. -patient denies complaints of chest pain or shortness of breath. -total creatinine kinase is 164 and troponin is 0.037 in the setting of renal failure with a creatinine of 2.38 -12 lead EKG is reassuring with normal sinus rhythm at a rate of 95 without ectopy or block, ST or T-wave changes. -will recheck troponin and add a proBNP following fluid bolusing and transfusion. 7. Diabetes, non insulin dependent, with hyperglycemia, present on admission, stable -patient presents with glucose of 205 on initial labs. Glucose is likely elevated in stress response. -patient routinely takes metformin at home and is now and p.o.. -ordered fingerstick blood sugars every 6 hours and will cover with low range correctional insulin. -will obtain hemoglobin A1c. 8. Hypertension, chronic, stable -patient presents with a blood pressure of 106/54 dipping down to 70s systolic n the ER improving with volume expansion with IV fluid and blood -will hold patient's losartan and spironolactone until pressure improves. 9. Hypothyroidism, chronic, stable -will continue patient's thyroid supplementation with 10. Psoriasis, chronic, stable -patient is on Humira therapy currently between episodic treatments. -patient presents with black hairy tongue concerning for possible bacteria or fungal infection, no complaints of oral pain. -patient sorry being treated with Zosyn 3.375 g IV every 6 hours. -blood pursue aggressive oral care and re-evaluate 11. Hyperlipidemia, chronic, stable -will continue atorvastatin when patient is again taking oral medications. VTE prophylaxis: Bilateral SCDs chemical prophylaxis contraindicated. IV fluid: Normal saline 150 cc see hours and blood transfusion Diet: NPO Code status: Full code patient designates her vertebral to be her surrogate decision maker. The patient is admitted to the hospital for severe anemia secondary to GI bleeding and multiple complications requiring resuscitation and close monitoring with surgical evaluation. The patient is admitted as an inpatient with expected length of stay to be greater than 2 midnights. Critical care time: 60 minutes with greater than 50% in direct [id number] performing assessments and serial recess months and reviewing medical records and test results. COVID-19 COVID-19 status: Negative Result date/Date tested (Pos, Neg/Pending): 11/14/20
[2020-11-14] MEDS: PANTOPRAZOLE 80 MG in SODIUM CHLORIDE 0.9% 100 ML 10 ML IV ×2 (01:50→11:28)
[2020-11-14 02:08] LABS: Lactate 2HR (Lactic Acid Rflx) 10.3 mmol/L (0.7-2.1)
--- NOTE | 2020-11-14 02:11 | PC.NURSE ---
Pt getting 2nd unit of PRBC, running at increased rate due to low BP, per Dr Richards 2nd unit to go in over 30 minutes. No transfusion reaching noted. Pt recieved first dose of ABX and Protonix, IV protonix gtt currently running in 2nd IV site concurrently with NS.
[2020-11-14 02:23] LABS: CKMB % Relative Index 2.6 % (1.5-5.0); Creatine Kinase MB 4.26 ng/mL (<2.37)
[2020-11-14 03:45] LABS: Hematocrit 18.8 % (36-46)
[2020-11-14] MEDS: SODIUM CHLORIDE 0.9% 500 ML 1000 ML IV (04:00)
[2020-11-14] MEDS: SODIUM CHLORIDE 0.9% 1,000 ML 1000 ML IV (04:00)
--- NOTE | 2020-11-14 04:15 | DI.US.S_ITS ---
PROCEDURE: US ABDOMEN LIMITED INDICATIONS: Right upper quadrant pain, cirrhosis on CT. TECHNIQUE: Real-time focused scanning was performed of the abdomen, with image documentation. COMPARISON: [facility], CT, CT ABDOMEN PELVIS WO CON, 11/13/2020, 23:18. FINDINGS: The liver echotexture is coarse, the craniocaudad length of the liver is 15.6 cm. There is slight nodularity of the anterior hepatic capsule, and the main portal vein is patent with appropriate direction of flow and measuring 1.4 cm in maximal axial dimension. The gallbladder is normal, as are the bile ducts. The pancreas could not be seen due to bowel gas. IMPRESSION: Hepatic cirrhosis appears present without visualized hepatic mass lesion. Mild nodularity of the anterior hepatic capsular border. Patent portal vein, with appropriate direction of flow. Moderate cirrhotic appearance. No ascites found. Dictated by: Kristopher Vidales M.D. on 11/14/2020 at 9:37 Approved by: Kristopher Vidales M.D. on 11/14/2020 at 9:39
[2020-11-14 05:38] LABS: Bacteria Urine None Seen
[2020-11-14 05:42] LABS: Appearance Urine UA CLOUDY; Bilirubin Urine UA NEGATIVE (NEGATIVE); Color Urine UA YELLOW; Glucose Urine UA NEGATIVE (Negative); Ketones Urine UA NEGATIVE (NEGATIVE); Leukocyte Esterase Urine UA 2+ (NEGATIVE); Nitrite Urine UA NEGATIVE (Negative); Occult Blood Urine UA TRACE-INTACT (Negative); Protein Urine UA NEGATIVE (Negative); Specific Gravity Urine UA 1.025 (1.000-1.035); Urobilinogen Urine UA 0.2 E.U./dL (0.2)
[2020-11-14 05:46] LABS: pH Urine UA 5.5 (4.5-8.0)
[2020-11-14 05:54] LABS: Amorphous Sediment Urine 1+; RBC Urine 1-5/HPF (0-5/HPF); Transitional Epi Cells Urine 1-5/HPF (0-5/HPF); WBC Urine 10-30/HPF (0-5/HPF)
[2020-11-14 05:55] LABS: Culture Indicated Urine Specimen Cultured
[2020-11-14 06:31] LABS: Lactate (Lactic Acid) 3.2 mmol/L (0.7-2.1)
[2020-11-14 06:33] LABS: Alanine Aminotransferase 126 IU/L (<35); Albumin 2.7 g/dL (3.5-5.0); Alkaline Phosphatase 97 U/L (38-126); Aspartate Aminotransferase 151 IU/L (14-36); BUN Creatinine Ratio 52.1 (6-22); Bilirubin Total 0.8 mg/dL (0.2-1.3); Calcium 8.8 mg/dL (8.4-10.2); Carbon Dioxide 23 mmol/L (22-32); Chloride 108 mmol/L (98-107); Estimated Glomerular Filt Rate 22.6 mL/min (>60); Globulin 2.7 g/dL (1.7-4.1); Glucose 252 mg/dL (80-110); HEMOLYSIS < 15 (0-50); Potassium 4.6 mmol/L (3.4-5.1); Sodium 137 mmol/L (137-145); Total Protein 5.4 g/dL (6.3-8.2)
[2020-11-14 06:36] LABS: Blood Urea Nitrogen 113 mg/dL (7-17)
[2020-11-14 06:42] LABS: INR 1.5 (0.9-1.3); Prothrombin Time 17.1 SECONDS (10.1-12.7)
--- NOTE | 2020-11-14 06:50 | PC.NURSE ---
Admit/Night Note-Patient brought to room 228 at 0250, fatigued, oriented x4, unable to transfer to bed without assistance. NS and Protonix infusing per order, see Emar. H/H 6.0/18.8 after 2 units PRBC infused in ED. 2 more PRBC ordered, started at 0530 after clearing through lab. Broderick catheter placed, urine cloudy, sent for culture. Afebrile, SR/ST, BP low, but stable, denies lightheadedness at rest, RR 20s, SpO2 98% on RA, LS CTA, denies dyspnea. Critical BUN 113 reported to Luis Fernando ESPINOSA.
[2020-11-14 06:52] LABS: Cholesterol 119 mg/dL (140-199); HDL Cholesterol 22 mg/dL (40-60); LDL Cholesterol Calculated 51 mg/dL (<100); Triglycerides 231 mg/dL (35-150)
[2020-11-14] MEDS: SODIUM CHLORIDE 0.9% 1,000 ML 150 ML IV ×2 (07:01→15:26)
[2020-11-14 07:03] LABS: NT-proBNP (BNP-Adult 18+) 214 pg/mL (<125); Troponin I 0.039 ng/mL (0.01-0.034)
[2020-11-14 07:07] LABS: Free T4, Direct Thyroxine 0.95 ng/dL (0.78-2.19)
[2020-11-14 07:21] LABS: Thyroid Stimulating Hormone 0.779 uIU/mL (0.47-4.68)
--- NOTE | 2020-11-14 07:40 | PM.HP.1 ---
History of Present Illness History of Present Illness Date Patient Seen: 11/14/20 Time Patient Seen: 07:41 Chief complaint: vomiting/ Narrative: This is a 69-year-old woman with severe anemia and suspected GI bleed. She has a PMH of obesity, HTN, HLD, NIDDM2, psoriasis, hypothyroidism and colon polyps (most recent scope was done a few months ago in [place] with polyps found, recall 3 years) and came into the ER last night with 3 days of black stool and worsening nausea, vomiting, black/bloody diarrhea, crampy abdominal pain, and coffee grounds emesis. She says prior to that her stools were normal. In the ER she was found to have Hgb 4. WBC in the ER was 30, procalcitonin 0.28, lactate was 12, and Creatinine was 2.4. LFT's are also slightly elevated, with no increased bilirubin. She had a syncope in the ER, and head CT was done which prelim read says is basically normal. CT scan of the abdomen was done and reveals some heterogenous material in the stomach, and some diverticulosis and vague thickening of the sigmoid. This morning she reports that her abdominal pain has improved, and she has not put out any stool since she has been here. She denies any rectal pain or hemorrhoids. She has received 2 units of blood during the night, and her hemoglobin has come up to 6. Her lactate has come down to 3, and her INR is 1.5. Her white count is still 30, and she is being given Zosyn. Her LFTs have bumped to 150 and 126, but her bilirubin is normal. ROS: Positive for fatigue, headache, multiple falls at home in the last 3 days because of light headedness. She reports dizziness, knee pain, left buttock pain, denies fever, chills. She denies chest pain or palpitations. She reports shortness of breath and has an intermittent dry raspy cough. She is normally able to walk without help. Thirteen system review is otherwise negative other than as mentioned below and in HPI. PE: GENERAL: Alert, comfortable. Obese. Appears stated age. Answers questions promptly and appropriately. Vital signs noted. HENT: Normocephalic, atraumatic. Hearing intact. EYES: Conjunctiva pink, sclera white, no periorbital swelling. CARDIOVASCULAR: Regular rate. Trees pedal edema. RESPIRATORY: Non-tachypneic, breathing comfortably on room air. GASTROINTESTINAL: Abdomen soft and non-distended, significantly obese, vaguely tender to palpation in the upper abdomen SONIA: Deferred per the patient ?I already had that exam in the ER GENITALURINARY: No flank tenderness. MUSCULOSKELETAL: Equal tone and mass bilaterally. Full range of motion SKIN: Warm, dry, soft, appropriate color for ethnicity. No jaundice. No other lesions, rashes, or wounds. NEURO: Alert and Oriented X 3. No gross sensory deficits, or cognitive issues. PSYCH: Appropriate affect and mood. Patient History Medical History Acquired hypothyroidism Essential hypertension History of colon polyps Hyperlipidemia Non-insulin dependent type 2 diabetes mellitus Psoriasis Surgical History (Updated 11/14/20 @ 08:11 by Tara Monsalve MD) History of colonoscopy History of hysterectomy Family & Social History Family History (Updated 11/14/20 @ 04:10 by JESÚS Mike) Father Cancer Mother Cancer Social History: household members spouse Prior Living Arrangements House lives independently Yes Safety & Behavioral: Feels Safe in Current Yes Environment Been Physically Hurt or No Threatened By a Person Suicidal Ideation Description None Suicide Plan Description No Plan Tobacco & Substance use: Smoking Status Never smoker alcohol intake never Substance Use Type does not use Meds Home Medications and Allergies Home Medications Medication Instructions Recorded Confirmed Type CA PANTOTHENATE/FOLIC ACID/VIT 1 tab PO Q DAY #0 06/22/11 11/14/20 History (MULTIVITAMIN) CHOLECALCIFEROL (VITAMIN D3) 2,000 iu PO Q DAY #0 06/22/11 11/14/20 History (Vitamin D) MAGNESIUM (#LIQUID MAGNESIUM) 500 mg PO Q DAY #0 06/22/11 11/14/20 History adalimumab [Humira] 028 Days #2 04/07/12 History levothyroxine [Synthroid] 75 mcg PO DAILY 090 Days #90 04/07/12 11/14/20 History losartan 60 mg PO DAILY 090 Days #270 04/07/12 11/14/20 History metformin [Glucophage] 500 mg PO DAILY 090 Days #270 04/07/12 11/14/20 History spironolactone 25 mg PO DAILY 090 Days #90 04/07/12 11/14/20 History aspirin 81 mg PO DAILY 11/14/20 11/14/20 History atorvastatin 10 mg PO BEDTIME 11/14/20 11/14/20 History folic acid 800 mcg PO DAILY 11/14/20 11/14/20 History sitagliptin [Januvia] 50 mg PO DAILY 11/14/20 11/14/20 History Allergies Allergy/AdvReac Type Severity Reaction Status Date / Time No Known Drug Allergies Allergy Verified 11/13/20 23:52 Exam Vital Signs (past 8 hours): - 11/13/20 23:50 11/14/20 00:00 11/14/20 00:10 Temperature Pulse Rate 92 H 99 H 99 H Respiratory Rate 23 24 25 H Blood Pressure 103/53 L 106/53 L 103/52 L Pulse Oximetry 100 100 100 11/14/20 00:20 11/14/20 00:30 11/14/20 00:40 Temperature Pulse Rate 97 H 95 H 104 H Respiratory Rate 25 H 27 H 27 H Blood Pressure 104/54 L 97/51 L 101/48 L Pulse Oximetry 100 100 99 11/14/20 00:44 11/14/20 00:50 11/14/20 00:52 Temperature 97.8 F 97.8 F Pulse Rate 107 H 99 H 101 H Respiratory Rate 25 H 27 H 25 H Blood Pressure 101/48 L 111/53 L 111/53 L Pulse Oximetry 100 100 11/14/20 01:00 11/14/20 01:08 11/14/20 01:10 Temperature 98.2 F Pulse Rate 98 H 96 H 96 H Respiratory Rate 22 Blood Pressure 101/52 L 100/50 L 100/50 L Pulse Oximetry 100 100 11/14/20 01:20 11/14/20 01:30 11/14/20 01:40 Temperature Pulse Rate 97 H 101 H 101 H Respiratory Rate 15 25 H Blood Pressure 97/52 L 93/51 L 84/49 L Pulse Oximetry 100 99 100 11/14/20 01:50 11/14/20 01:52 11/14/20 02:00 Temperature Pulse Rate 95 H 96 H 92 H Respiratory Rate 23 Blood Pressure 73/38 L 78/47 L 81/49 L Pulse Oximetry 100 100 100 11/14/20 02:04 11/14/20 02:06 11/14/20 02:10 Temperature 98.2 F Pulse Rate 91 H 92 H 96 H Respiratory Rate 35 H 25 H 19 Blood Pressure 89/47 L 89/47 L 94/47 L Pulse Oximetry 100 100 11/14/20 02:21 11/14/20 02:30 11/14/20 02:40 Temperature 98.6 F Pulse Rate 101 H 100 H 97 H Respiratory Rate 19 29 H 30 H Blood Pressure 104/52 L 98/54 L 111/57 L Pulse Oximetry 100 100 100 11/14/20 02:50 11/14/20 02:51 11/14/20 02:58 Temperature Pulse Rate 103 H 104 H 102 H Respiratory Rate 32 H Blood Pressure 100/50 L 95/48 L 107/53 L Pulse Oximetry 100 100 100 11/14/20 03:00 11/14/20 03:10 11/14/20 05:30 Temperature 98.5 F 98.6 F Pulse Rate 100 H 100 H 97 H Respiratory Rate 26 H 26 H 20 Blood Pressure 100/52 L 88/43 L 96/51 L Pulse Oximetry 100 100 11/14/20 05:53 11/14/20 06:00 11/14/20 07:38 Temperature 98.5 F 97.9 F Pulse Rate 99 H 93 H 85 Respiratory Rate 29 H 23 24 Blood Pressure 86/46 L 122/58 L 102/58 L Pulse Oximetry 100 Oxygen Delivery Method Room Air Objective Imaging CT scan - abdomen: My impression: Looks like blood and clot in the stomach, nothing else impressive relative to the GI tract; awaiting final read Radiologist's impression: Prelim head and abd CT's: Head CT: no acute intracranial abnormalities. CT of the abdomen pelvis without contrast: cirrhotic liver with no discrete mass in anterior pancreatic body water-dense and lesion measuring 13 x 12 mm. A right adrenal mass measuring 2.9 x 2.7 cm and a left renal pelvis is calculus measuring 11 x 9 mm, non distended:, sigmoid colon diverticulosis without inflammation, possible mural thickening involving the right hemicolon through the descending says colon segment with mild surrounding edema, no free air or fluid. Labs Result Diagrams: 11/14/20 03:26 11/14/20 06:00 Labs: Laboratory Results - last 24 hr 11/13/20 11/13/20 11/13/20 22:20 22:23 22:23 WBC 30.4 H* RBC 1.70 L Hgb 4.2 L* Hct 14.2 L* MCV 83.5 MCH 24.9 L MCHC 29.8 L RDW 19.8 H Plt Count 287 Neut % (Auto) Not Reportable Lymph % (Auto) Not Reportable [place] % (Auto) Not Reportable Eos % (Auto) Not Reportable Baso % (Auto) Not Reportable Lymph # (Auto) Not Reportable [place] # (Auto) Not Reportable Baso # (Auto) Not Reportable Total Counted 100 Seg Neutrophils % 78.0 H Lymphocytes % (Manual) 20.0 L Monocytes % (Manual) 2.0 Neutrophils # (Manual) 53979 H Nucleated RBCs 1 H RBC Morphology Not Reportable Anisocytosis 2+ H PT 15.7 H INR 1.4 H APTT 26 L VBG pH VBG pCO2 VBG pO2 VBG HCO3 VBG Total CO2 VBG O2 Saturation VBG Base Excess Sodium Potassium Chloride Carbon Dioxide BUN Creatinine Estimated GFR BUN/Creatinine Ratio Glucose Hemoglobin A1c Lactate Calcium Phosphorus Magnesium Total Bilirubin AST ALT Alkaline Phosphatase Ammonia Total Creatine Kinase CK-MB (CK-2) CK-MB (CK-2) Rel Index Troponin I NT-Pro-B Natriuret Pep Total Protein Albumin Globulin Albumin/Globulin Ratio Triglycerides Cholesterol LDL Cholesterol, Calc HDL Cholesterol Lipase Procalcitonin TSH Free T4 Urine Color Urine Appearance Urine pH Ur Specific [place] Urine Protein Urine Glucose (UA) Urine Ketones Urine Occult Blood Urine Nitrate Urine Bilirubin Urine Urobilinogen Ur Leukocyte Esterase Urine RBC Urine WBC Ur Transition Epith Cell Amorphous Sediment Urine Bacteria Ur Culture Indicated? Nasal Screen MRSA (PCR) Ethyl Alcohol Ketones SARS-CoV-2 (PCR) Negative Blood Type Antibody Screen Crossmatch 11/13/20 11/13/20 11/13/20 22:23 22:23 22:23 WBC RBC Hgb Hct MCV MCH MCHC RDW Plt Count Neut % (Auto) Lymph % (Auto) [place] % (Auto) Eos % (Auto) Baso % (Auto) Lymph # (Auto) [place] # (Auto) Baso # (Auto) Total Counted Seg Neutrophils % Lymphocytes % (Manual) Monocytes % (Manual) Neutrophils # (Manual) Nucleated RBCs RBC Morphology Anisocytosis PT INR APTT VBG pH VBG pCO2 VBG pO2 VBG HCO3 VBG Total CO2 VBG O2 Saturation VBG Base Excess Sodium 138 Potassium 4.6 Chloride 105 Carbon Dioxide 11 L BUN 106 H* Creatinine 2.38 H Estimated GFR 20.3 L BUN/Creatinine Ratio 44.5 H Glucose 205 H Hemoglobin A1c Lactate Calcium 9.8 Phosphorus 7.8 H Magnesium 2.3 Total Bilirubin 0.3 AST 63 H ALT 66 H Alkaline Phosphatase 112 Ammonia Total Creatine Kinase 164 H CK-MB (CK-2) 4.26 H CK-MB (CK-2) Rel Index 2.6 Troponin I 0.037 H NT-Pro-B Natriuret Pep Total Protein 6.0 L Albumin 3.2 L Globulin 2.8 Albumin/Globulin Ratio 1.1 Triglycerides Cholesterol LDL Cholesterol, Calc HDL Cholesterol Lipase 516 H Procalcitonin 0.28 TSH Free T4 Urine Color Urine Appearance Urine pH Ur Specific [place] Urine Protein Urine Glucose (UA) Urine Ketones Urine Occult Blood Urine Nitrate Urine Bilirubin Urine Urobilinogen Ur Leukocyte Esterase Urine RBC Urine WBC Ur Transition Epith Cell Amorphous Sediment Urine Bacteria Ur Culture Indicated? Nasal Screen MRSA (PCR) Ethyl Alcohol < 10 Ketones 0.49 H SARS-CoV-2 (PCR) Blood Type Antibody Screen Crossmatch 11/13/20 11/13/20 11/13/20 22:23 22:23 22:45 WBC RBC Hgb Hct MCV MCH MCHC RDW Plt Count Neut % (Auto) Lymph % (Auto) [place] % (Auto) Eos % (Auto) Baso % (Auto) Lymph # (Auto) [place] # (Auto) Baso # (Auto) Total Counted Seg Neutrophils % Lymphocytes % (Manual) Monocytes % (Manual) Neutrophils # (Manual) Nucleated RBCs RBC Morphology Anisocytosis PT INR APTT VBG pH VBG pCO2 VBG pO2 VBG HCO3 VBG Total CO2 VBG O2 Saturation VBG Base Excess Sodium Potassium Chloride Carbon Dioxide BUN Creatinine Estimated GFR BUN/Creatinine Ratio Glucose Hemoglobin A1c Cancelled Lactate 12.6 H* Calcium Phosphorus Magnesium Total Bilirubin AST ALT Alkaline Phosphatase Ammonia 19 Total Creatine Kinase CK-MB (CK-2) CK-MB (CK-2) Rel Index Troponin I NT-Pro-B Natriuret Pep Total Protein Albumin Globulin Albumin/Globulin Ratio Triglycerides Cholesterol LDL Cholesterol, Calc HDL Cholesterol Lipase Procalcitonin TSH Free T4 Urine Color Urine Appearance Urine pH Ur Specific [place] Urine Protein Urine Glucose (UA) Urine Ketones Urine Occult Blood Urine Nitrate Urine Bilirubin Urine Urobilinogen Ur Leukocyte Esterase Urine RBC Urine WBC Ur Transition Epith Cell Amorphous Sediment Urine Bacteria Ur Culture Indicated? Nasal Screen MRSA (PCR) Ethyl Alcohol Ketones SARS-CoV-2 (PCR) Blood Type Antibody Screen Crossmatch 11/13/20 11/14/20 11/14/20 22:45 00:27 01:10 WBC RBC Hgb Hct MCV MCH MCHC RDW Plt Count Neut % (Auto) Lymph % (Auto) [place] % (Auto) Eos % (Auto) Baso % (Auto) Lymph # (Auto) [place] # (Auto) Baso # (Auto) Total Counted Seg Neutrophils % Lymphocytes % (Manual) Monocytes % (Manual) Neutrophils # (Manual) Nucleated RBCs RBC Morphology Anisocytosis PT INR APTT VBG pH 7.25 L VBG pCO2 32.9 L VBG pO2 23 L VBG HCO3 15 L VBG Total CO2 16 L VBG O2 Saturation 32 L VBG Base Excess -13.0 L Sodium Potassium Chloride Carbon Dioxide BUN Creatinine Estimated GFR BUN/Creatinine Ratio Glucose Hemoglobin A1c Lactate 10.3 H* Calcium Phosphorus Magnesium Total Bilirubin AST ALT Alkaline Phosphatase Ammonia Total Creatine Kinase CK-MB (CK-2) CK-MB (CK-2) Rel Index Troponin I NT-Pro-B Natriuret Pep Total Protein Albumin Globulin Albumin/Globulin Ratio Triglycerides Cholesterol LDL Cholesterol, Calc HDL Cholesterol Lipase Procalcitonin TSH Free T4 Urine Color Urine Appearance Urine pH Ur Specific [place] Urine Protein Urine Glucose (UA) Urine Ketones Urine Occult Blood Urine Nitrate Urine Bilirubin Urine Urobilinogen Ur Leukocyte Esterase Urine RBC Urine WBC Ur Transition Epith Cell Amorphous Sediment Urine Bacteria Ur Culture Indicated? Nasal Screen MRSA (PCR) Ethyl Alcohol Ketones SARS-CoV-2 (PCR) Blood Type O Positive Antibody Screen Negative Crossmatch See Detail 11/14/20 11/14/20 11/14/20 03:26 04:04 04:45 WBC RBC Hgb 6.0 L* Hct 18.8 L* MCV MCH MCHC RDW Plt Count Neut % (Auto) Lymph % (Auto) [place] % (Auto) Eos % (Auto) Baso % (Auto) Lymph # (Auto) [place] # (Auto) Baso # (Auto) Total Counted Seg Neutrophils % Lymphocytes % (Manual) Monocytes % (Manual) Neutrophils # (Manual) Nucleated RBCs RBC Morphology Anisocytosis PT INR APTT VBG pH VBG pCO2 VBG pO2 VBG HCO3 VBG Total CO2 VBG O2 Saturation VBG Base Excess Sodium Potassium Chloride Carbon Dioxide BUN Creatinine Estimated GFR BUN/Creatinine Ratio Glucose Hemoglobin A1c Lactate Calcium Phosphorus Magnesium Total Bilirubin AST ALT Alkaline Phosphatase Ammonia Total Creatine Kinase CK-MB (CK-2) CK-MB (CK-2) Rel Index Troponin I NT-Pro-B Natriuret Pep Total Protein Albumin Globulin Albumin/Globulin Ratio Triglycerides Cholesterol LDL Cholesterol, Calc HDL Cholesterol Lipase Procalcitonin TSH Free T4 Urine Color Yellow Urine Appearance Cloudy Urine pH 5.5 Ur Specific [place] 1.025 Urine Protein Negative Urine Glucose (UA) Negative Urine Ketones Negative Urine Occult Blood Trace-intact Urine Nitrate Negative Urine Bilirubin Negative Urine Urobilinogen 0.2 Ur Leukocyte Esterase 2+ H Urine RBC 1-5/hpf Urine WBC 10-30/hpf H Ur Transition Epith Cell 1-5/hpf Amorphous Sediment 1+ Urine Bacteria None seen Ur Culture Indicated? Specimen cultured Nasal Screen MRSA (PCR) Negative for mrsa Ethyl Alcohol Ketones SARS-CoV-2 (PCR) Blood Type Antibody Screen Crossmatch 11/14/20 11/14/20 11/14/20 06:00 06:00 06:00 WBC RBC Hgb Hct MCV MCH MCHC RDW Plt Count Neut % (Auto) Lymph % (Auto) [place] % (Auto) Eos % (Auto) Baso % (Auto) Lymph # (Auto) [place] # (Auto) Baso # (Auto) Total Counted Seg Neutrophils % Lymphocytes % (Manual) Monocytes % (Manual) Neutrophils # (Manual) Nucleated RBCs RBC Morphology Anisocytosis PT 17.1 H INR 1.5 H APTT VBG pH VBG pCO2 VBG pO2 VBG HCO3 VBG Total CO2 VBG O2 Saturation VBG Base Excess Sodium 137 Potassium 4.6 Chloride 108 H Carbon Dioxide 23 BUN 113 H* Creatinine 2.17 H Estimated GFR 22.6 L BUN/Creatinine Ratio 52.1 H Glucose 252 H Hemoglobin A1c Lactate Calcium 8.8 Phosphorus Magnesium Total Bilirubin 0.8 AST 151 H ALT 126 H Alkaline Phosphatase 97 Ammonia Total Creatine Kinase CK-MB (CK-2) CK-MB (CK-2) Rel Index Troponin I 0.039 H NT-Pro-B Natriuret Pep 214 H Total Protein 5.4 L Albumin 2.7 L Globulin 2.7 Albumin/Globulin Ratio 1.0 Triglycerides 231 H Cholesterol 119 L LDL Cholesterol, Calc 51 HDL Cholesterol 22 L Lipase Procalcitonin TSH Free T4 Urine Color Urine Appearance Urine pH Ur Specific [place] Urine Protein Urine Glucose (UA) Urine Ketones Urine Occult Blood Urine Nitrate Urine Bilirubin Urine Urobilinogen Ur Leukocyte Esterase Urine RBC Urine WBC Ur Transition Epith Cell Amorphous Sediment Urine Bacteria Ur Culture Indicated? Nasal Screen MRSA (PCR) Ethyl Alcohol Ketones SARS-CoV-2 (PCR) Blood Type Antibody Screen Crossmatch 11/14/20 11/14/20 06:00 06:00 WBC RBC Hgb Hct MCV MCH MCHC RDW Plt Count Neut % (Auto) Lymph % (Auto) [place] % (Auto) Eos % (Auto) Baso % (Auto) Lymph # (Auto) [place] # (Auto) Baso # (Auto) Total Counted Seg Neutrophils % Lymphocytes % (Manual) Monocytes % (Manual) Neutrophils # (Manual) Nucleated RBCs RBC Morphology Anisocytosis PT INR APTT VBG pH VBG pCO2 VBG pO2 VBG HCO3 VBG Total CO2 VBG O2 Saturation VBG Base Excess Sodium Potassium Chloride Carbon Dioxide BUN Creatinine Estimated GFR BUN/Creatinine Ratio Glucose Hemoglobin A1c Lactate 3.2 H Calcium Phosphorus Magnesium Total Bilirubin AST ALT Alkaline Phosphatase Ammonia Total Creatine Kinase CK-MB (CK-2) CK-MB (CK-2) Rel Index Troponin I NT-Pro-B Natriuret Pep Total Protein Albumin Globulin Albumin/Globulin Ratio Triglycerides Cholesterol LDL Cholesterol, Calc HDL Cholesterol Lipase Procalcitonin TSH 0.779 Free T4 0.95 Urine Color Urine Appearance Urine pH Ur Specific [place] Urine Protein Urine Glucose (UA) Urine Ketones Urine Occult Blood Urine Nitrate Urine Bilirubin Urine Urobilinogen Ur Leukocyte Esterase Urine RBC Urine WBC Ur Transition Epith Cell Amorphous Sediment Urine Bacteria Ur Culture Indicated? Nasal Screen MRSA (PCR) Ethyl Alcohol Ketones SARS-CoV-2 (PCR) Blood Type Antibody Screen Crossmatch Assessment & Plan Assessment and plan (1) Acute GI bleeding: Status: Acute (2) Non-insulin dependent type 2 diabetes mellitus: Status: Inactive (3) History of colon polyps: Status: Inactive (4) Essential hypertension: Status: Inactive (5) Anemia: Qualifiers: Anemia type: other cause Other causes of anemia: acute posthemorrhagic Qualified Code(s): D62 - Acute posthemorrhagic anemia Status: Acute (6) Hyperglycemia: Status: Acute (7) History of colonoscopy: Problem details: 2018 Status: Inactive (8) Hematemesis: Qualifiers: Nausea presence: with nausea Qualified Code(s): K92.0 - Hematemesis Status: Acute (9) Leukocytosis: Qualifiers: Leukocytosis type: unspecified Qualified Code(s): D72.829 - Elevated white blood cell count, unspecified Status: Acute (10) MACIEL (acute kidney injury): Status: Acute Assessment & Plan narrative: This is a 69-year-old woman admitted to the hospitalist service for an acute GI bleed, suspected upper. She came in with a significant leukocytosis, elevated lactate of 12, MACIEL, superimposed on her history of type 2 diabetes, morbid obesity, and hypertension. It looks on her CT scan that she has several incidental findings including a pancreatic cyst, an adrenal lesion, some liver abnormalities, and some thickening of her colon. This point it appears that she is doing better after getting a couple of units of blood, and some fluids. Her lactate has come down, her creatinine is starting to come down, and her hemoglobin has increased to 6. She continues to have a white count of 30, which is unexplained by the current findings, but may indicate a malignancy, or significant immune response to her GI bleed. Her abdominal obesity complicates matters in the case that she does need a surgery of some sort, as it make surgery more difficult and more risky. She is currently on Zosyn, for which we do not really have an indication. She is on Protonix b.i.d., and getting transfused to goal. She just had a colonoscopy within the past year, and she does not really have an indication to repeat that today. She does need an upper endoscopy for evaluation and possible treatment of her GI bleed. Of course of nothing is found the upper, she will need to be prepped and have a lower. We will plan on doing the upper today, so long as she is medically improving, and is stable enough for the procedure. Risks and benefits of the preacher were discussed with the patient. I did tell her that if she had a today, 1 of my colleagues will be doing it. I discussed her case with Dr. Malik and Dr. Corrales. Plan: NPO for possible EGD today Continue transfusion to goal, hemoglobin greater than 8 Continue medical management per hospitalist regarding her MACIEL, DM2, and other comorbidities PPI, 40 IV b.i.d. should be sufficient Schedule for EGD with anesthesia this afternoon to be done by Dr. Corrales, so long as the patient is medically stable enough for the procedure at that time Quality VTE Deep Vein Thrombosis/Pulmonary Embolism Present on Admission: No
[2020-11-14 08:12] LABS: Reflexed Lactate in 2 Hours Y
[2020-11-14] MEDS: INSULIN ASPART 100 UNIT/ML INSULN PEN SUBCUT ×3 (08:30→18:02)
--- NOTE | 2020-11-14 10:19 | CM.DANOTE ---
DCP: Case received, EMR reviewed and met with patient. Introduced self and role. Was able to obtain information from patient regarding her baseline activity status prior to hospitalization. DCP assessment completed with information currently available. Patient is a 69 year old female who admitted early this morning to the care of the hospitalist team. PCP: Dr. Ibarra. Payer: confirmed: [employer]. Patient came to the hospital via family vehicle secondary to having nausea and vomiting. Patient holds diagnosis of GI Bleed, as well as colitis. Patient also has history of liver cirhosis, but no alcohol history. Patient also has history of signoid colon diverticulosis, and is a type 2 diabetic. Met with patient in her room. She is alert and oriented, she was laying on her side in bed. Confirmed that she resides in [place] with her spouse, Crow. She is independent at baseline, as far as mobility. She still drives. Confirmed with her that she does have a primary care provider, Dr. Ibarra, who is a family practice provider. P: DCP to continue to follow. Patient should be able to go home when she is medically stable. Anne Duncan RN/Food Safety Manager
[2020-11-14 12:00] LABS: Add Manual Diff / Slide Review NO; Basophils Absolute Auto 0 /uL (0-100); Basophils Percent Auto 0.1 % (0-2); Eosinophils Absolute Auto 0 /uL (0-450); Hematocrit 26.4 % (36-46); Hemoglobin 8.9 g/dL (12.0-16.0); Lymphocytes Absolute Auto 1600 /uL (1100-4500); Lymphocytes Percent Auto 9.1 % (25-40); Mean Corpuscular HGB Conc 33.5 % (30-36); Mean Corpuscular Hemoglobin 28.6 PG (26-34); Mean Corpuscular Volume 85.3 fL (80-100); Monocytes Absolute Auto 1100 /uL (0-900); Neutrophils Absolute Auto 15200 /uL (1500-7000); Neutrophils Percent Auto 84.8 % (50-75); Platelet Count 134 X10^3/uL (150-400); Red Cell Distribution Width 17.5 % (11.6-14.8); White Blood Cell Count 17.9 X10^3/uL (4.5-11.0)
[2020-11-14 12:20] LABS: Lactate 2HR (Lactic Acid Rflx) 1.7 mmol/L (0.7-2.1)
[2020-11-14 14:18] LABS: BUN Creatinine Ratio 61.3 (6-22); Blood Urea Nitrogen 100 mg/dL (7-17); Calcium 8.7 mg/dL (8.4-10.2); Carbon Dioxide 24 mmol/L (22-32); Chloride 111 mmol/L (98-107); Estimated Glomerular Filt Rate 31.5 mL/min (>60); Glucose 217 mg/dL (80-110); HEMOLYSIS < 15 (0-50); Potassium 4.1 mmol/L (3.4-5.1); Sodium 140 mmol/L (137-145)
--- NOTE | 2020-11-14 15:51 | PC.NURSE ---
Addendum entered by Tashia Pelayo R.N. 11/14/20 17:56: 1745 Pt returned from PACU via gurney, attached to monitoring, VSS and no c/o pain, bed low and locked, bed alarm on, call light within reach, will continue to monitor. Original Note: Evening shift note: A/O x3, resting in bed, advised by surgery that pt would be leaving around 1600 for EGD to be done by Dr. Corrales, explained procedure to pt. consent to be signed pre-op with surgeon. 1550 pt taken via wheelchair down to surgery, no further pt contact at this time.
[2020-11-14] MEDS: LACTATED RINGERS 1,000 ML 42 ML IV (16:27)
--- NOTE | 2020-11-14 16:35 | PM.PREOP ---
Pre-operative Note COVID-19 COVID-19 status: Negative Result date/Date tested (Pos, Neg/Pending): 11/14/20 Interval Note History & Physical reviewed/Exam performed by Physician: Yes Changes to H&P: Yes H&P completed within 30 days and has changed as indicated here:: Patient's hematocrit improved. Lactate improved. BUN and creatinine improved. She has been adequately resuscitated and she is alert and wishes to proceed. Will place the patient to sleep to protect intubate her to protect her airway in case there was a large amount of blood within her upper tract.
--- NOTE | 2020-11-14 17:13 | P.OP.ENDO_ITS ---
Operative Date/Time/Diagnoses Date of procedure: 11/14/20 Time of procedure: 17:13 Pre-op diagnosis: Probable upper GI bleed Post-op diagnosis: same (Probable bleed from esophageal varix) Procedure & Clinicians Study performed: EGD Same procedure as scheduled: Yes Indications: Determine cause of bleeding Surgeon: Edy Corrales Procedure Notes SCOAP/Timeout: Performed Procedure in detail: The patient underwent general anesthesia with endotracheal intubation to protect her airway. A bite block was inserted adjacent to the 2 and the scope was advanced through it into the esophagus. The esophagus was unremarkable. In till I reach the distal 3rd. GE junction was noted at 40 cm from the incisors. The vasculature appeared to be prominent. I entered the stomach.. The stomach insufflated well. There were no lesions seen in the body, antrum or at the incisura. The pyloric channel was patent. The duodenum was unremarkable to the 4th part. The scope was brought back into the stomach and retroflexed. The proximal stomach appeared to be normal except for the possibility of a small hiatal hernia. There was no evidence of ulceration. There did seem to be some prominent folds right below the GE junction in the proximal stomach that made me he consider the possibility of the beginning of gastric varices. There was no inflammation over these. There was no evidence of recent bleeding.. The scope was straightened and brought out through the esophagus again. At the GE junction below what appeared to be a varix was a small bluish discoloration consistent with a possible recent variceal bleed. I irrigated the area but there was no bleeding from this spot. Backing slowly up it was obvious the patient had esophageal varices of her distal esophagus. No other ulcerations or evidence of bleeding site was seen. The scope was removed and the patient tolerated the procedure well. Scope withdrawal time: Not applicable Sedation minutes: 0 (Patient underwent general endotracheal anesthesia so that her airway would be protected from any gastric blood that might be present.) Findings: other findings (Esophageal varices with evidence of recent bleed.) Specimen(s): none sent Complications: none Post-procedure Recommendations: Other recommendation (Referral to audio experience expert who treats patients with esophageal varices.) Plan for aftercare: Should the patient rebleed recommend resuscitation and prompt transfer to a tertiary care center. Recommend consideration of beta blockade. Disposition: PACU
[2020-11-14] MEDS: LEVOTHYROXINE INJ 100 MCG/5 ML VIAL 75 MCG IV (18:01)
[2020-11-15 00:22] VITALS: BP 112/54; PULSE 74; RESP 24; TEMP 37; O2SAT 99
[2020-11-15] MEDS: PANTOPRAZOLE 80 MG in SODIUM CHLORIDE 0.9% 100 ML 10 ML IV (00:25)
[2020-11-15] MEDS: INSULIN ASPART 100 UNIT/ML INSULN PEN SUBCUT ×3 (00:26→12:03)
[2020-11-15] MEDS: PIPERACILLIN-TAZO 3.375 GM/50 ML FROZ.PIGGY IV ×2 (00:39→07:19)
[2020-11-15] MEDS: SODIUM CHLORIDE 0.9% 1,000 ML 150 ML IV ×2 (00:39→07:17)
[2020-11-15 02:00] LABS: Hepatitis B Core Antibody Negative (Negative)
[2020-11-15 05:00] VITALS: BP 101/58; PULSE 66; RESP 16; TEMP 36.2; O2SAT 96
[2020-11-15 05:13] LABS: Add Manual Diff / Slide Review NO; Basophils Absolute Auto 0 /uL (0-100); Basophils Percent Auto 0.2 % (0-2); Eosinophils Absolute Auto 0 /uL (0-450); Hematocrit 23.4 % (36-46); Hemoglobin 7.9 g/dL (12.0-16.0); Lymphocytes Absolute Auto 1000 /uL (1100-4500); Lymphocytes Percent Auto 9.5 % (25-40); Mean Corpuscular HGB Conc 33.7 % (30-36); Mean Corpuscular Hemoglobin 29.2 PG (26-34); Mean Corpuscular Volume 86.7 fL (80-100); Monocytes Absolute Auto 500 /uL (0-900); Monocytes Percent Auto 5.2 % (3-14); Neutrophils Absolute Auto 8600 /uL (1500-7000); Neutrophils Percent Auto 85.1 % (50-75); Platelet Count 134 X10^3/uL (150-400); Red Blood Cell Count 2.69 X10^6/uL (4.0-5.2); Red Cell Distribution Width 17.6 % (11.6-14.8)
[2020-11-15 05:25] LABS: BUN Creatinine Ratio 56.6 (6-22); Blood Urea Nitrogen 64 mg/dL (7-17); Calcium 8.3 mg/dL (8.4-10.2); Carbon Dioxide 27 mmol/L (22-32); Chloride 116 mmol/L (98-107); Glucose 226 mg/dL (80-110); HEMOLYSIS < 15 (0-50); Potassium 4.1 mmol/L (3.4-5.1); Sodium 143 mmol/L (137-145)
--- NOTE | 2020-11-15 06:41 | PC.NURSE ---
Shift Note-Patient is A/O x4, able to doze intermittently, denies pain or nausea, no s/s bleeding, does have mild tremors BUEs. H/H 7.9/23.4 this am, NS @ 150ml/hr. Q6h BG 241, 226, insulin coverage per algorithm. VSS.
[2020-11-15 07:00] VITALS: BP 107/59; BP 119/63; BP 95/53; PULSE 68; PULSE 84; PULSE 87
[2020-11-15 08:35] VITALS: BP 95/53; PULSE 68; RESP 18; TEMP 36.7; O2SAT 97
[2020-11-15 11:57] VITALS: BP 112/58; PULSE 76; RESP 22; TEMP 37; O2SAT 98
[2020-11-15 20:23] LABS: Hep C Virus Ab w/Reflex Quant NEGATIVE s/c (NEGATIVE)
--- NOTE | 2020-11-15 20:53 | P.DS_ITS ---
History of Present Illness History of Present Illness Chief complaint: vomiting/ Narrative: This is a 69-year-old woman with severe anemia and suspected GI bleed. She has a PMH of obesity, HTN, HLD, NIDDM2, psoriasis, hypothyroidism and colon polyps (most recent scope was done a few months ago in [place] with polyps found, recall 3 years) and came into the ER last night with 3 days of black stool and worsening nausea, vomiting, black/bloody diarrhea, crampy abdominal pain, and coffee grounds emesis. She says prior to that her stools were normal. In the ER she was found to have Hgb 4. WBC in the ER was 30, procalcitonin 0.28, lactate was 12, and Creatinine was 2.4. LFT's are also slightly elevated, with no increased bilirubin. She had a syncope in the ER, and head CT was done which prelim read says is basically normal. CT scan of the abdomen was done and reveals some heterogenous material in the stomach, and some diverticulosis and vague thickening of the sigmoid. This morning she reports th at her abdominal pain has improved, and she has not put out any stool since she has been here. She denies any rectal pain or hemorrhoids. She has received 2 units of blood during the night, and her hemoglobin has come up to 6. Her lactate has come down to 3, and her INR is 1.5. Her white count is still 30, and she is being given Zosyn. Her LFTs have bumped to 150 and 126, but her bilirubin is normal. Discharge Providers Provider Date of admission: 11/14/20 01:02 Discharge Date: 11/15/20 Consults: 11/14/20 01:15 Consult to Dietitian, Adult Routine Comment: Reason For Exam: GI bleed, diabetic with hyperglycemia Consult to Discharge Planning Routine Comment: 11/14/20 01:17 Consult to General Surgery Routine Comment: Consulting Provider: Tara Monsalve Reason for consultation: GI bleeding Has provider been notified: Yes Discharge provider: Bunny Malik MD Summary Hospital Course Discharge Diagnosis: 1. Acute blood loss anemia 2. Cirrhosis, undetermined etiology 3. Acute kidney injury 4. Type 2 diabetes Patient was admitted due to severe blood loss anemia presenting with dark stools and hematemesis. She was transfused 4 units PRBC. EGD was performed by Dr. Corrales which showed esophageal varix with evidence of recent bleed. Patient had acute renal failure which resolved with hydration and transfusions. She was noted to have mild elevation of LFTs with normal bilirubin but elevated INR 1.5. Workup included CT which showed evidence of cirrhosis. Abdominal ultrasound also showed evidence of cirrhosis. She has never been a heavy drinker. She has significant obesity with BMI of 31 and diabetes which are risk factors for PORTILLO. A hepatitis B surface antibody was negative. A hepatitis-C antibody is pending. We did start her on nadolol 40 mg daily to reduce risk of recurrent variceal bleed especially since this was her 1st episode. We stopped her losartan to avoid excessive BP lowering. Patient was discharged in stable condition without any recurrence of bleed. She is given instructions to have PCP referral to supervisor safety deposit for further evaluation of cirrhosis and management of esophageal varices. Status at Discharge Cognitive/behavioral status at discharge: oriented Functional status at discharge: independent ambulation Overall status at discharge: patient is progressing back to baseline Time Spent with Patient Time spent: Greater than 30 minutes Exam Vital Signs (past 8 hours): Oxygen Delivery Method Room Air Oxygen Flow Rate 0 Objective Labs Result Diagrams: 11/15/20 04:49 11/15/20 04:49 Labs: Laboratory Results - last 24 hr 11/14/20 11/14/20 11/15/20 06:00 06:00 04:49 WBC 10.0 RBC 2.69 L Hgb 7.9 L Hct 23.4 L MCV 86.7 MCH 29.2 MCHC 33.7 RDW 17.6 H Plt Count 134 L Neut % (Auto) 85.1 H Lymph % (Auto) 9.5 L [place] % (Auto) 5.2 Eos % (Auto) 0.0 L Baso % (Auto) 0.2 Neut # (Auto) 8600 H Lymph # (Auto) 1000 L [place] # (Auto) 500 Eos # (Auto) 0 Baso # (Auto) 0 Sodium Potassium Chloride Carbon Dioxide BUN Creatinine Estimated GFR BUN/Creatinine Ratio Glucose Calcium Hep B Core Total Ab Negative Hepatitis C Antibody Negative 11/15/20 04:49 WBC RBC Hgb Hct MCV MCH MCHC RDW Plt Count Neut % (Auto) Lymph % (Auto) [place] % (Auto) Eos % (Auto) Baso % (Auto) Neut # (Auto) Lymph # (Auto) [place] # (Auto) Eos # (Auto) Baso # (Auto) Sodium 143 Potassium 4.1 Chloride 116 H Carbon Dioxide 27 BUN 64 H Creatinine 1.13 H Estimated GFR 48.0 L BUN/Creatinine Ratio 56.6 H Glucose 226 H Calcium 8.3 L Hep B Core Total Ab Hepatitis C Antibody [facility] Medical History (Updated 11/14/20 @ 08:12 by Tara Monsalve MD) Acquired hypothyroidism Essential hypertension History of colon polyps Hyperlipidemia Non-insulin dependent type 2 diabetes mellitus Psoriasis Surgical History (Updated 11/14/20 @ 08:11 by Tara Monsalve MD) History of colonoscopy History of hysterectomy Family History (Updated 11/14/20 @ 04:10 by JESÚS Mike) Father Cancer Mother Cancer Social History marital status: household members: spouse lives independently: Yes Smoking Status: Never smoker alcohol intake: never Discharge Plan Discharge Plan Patient Disposition: Home Provider Discharge Comment: Please have your PCP refer you to supervisor safety deposit (liver specialist) as soon as possible. You were admiited with GI bleed and transfused 4 units of blood. We discovered you have cirrhosis of the liver of unknown cause. You had EGD by Dr Corrales on 11/14/2020 which showed bleeding fro m esophageal varices (swollen vein in esophagus caused by cirrhosis). I am starting you on nadolol to reduce chance of having another bleed. Stop losartan for now due to blood pressures are running low normal at time of discharge. Stop aspirin and avoid any anti-inflammatory pain relievers (ibuprofen, naproxen). Discharge orders & Medications Prescriptions: New nadolol 40 mg tablet 40 mg PO DAILY Qty: 30 RF: 0 Continued CA PANTOTHENATE/FOLIC ACID/VIT (MULTIVITAMIN) 1 tab PO Q DAY Qty: 0 RF: 0 CHOLECALCIFEROL (VITAMIN D3) (Vitamin D) 2,000 iu PO Q DAY Qty: 0 RF: 0 MAGNESIUM (#LIQUID MAGNESIUM) 500 mg PO Q DAY Qty: 0 RF: 0 metformin [Glucophage] 500 MG tablet 500 mg PO DAILY 090 Days Qty: 270 RF: 0 spironolactone 25 MG tablet 25 mg PO DAILY 090 Days Qty: 90 RF: 0 levothyroxine [Synthroid] 75 MCG tablet 75 mcg PO DAILY 090 Days Qty: 90 RF: 0 folic acid 800 mcg Tablet 800 mcg PO DAILY RF: 0 Januvia 50 mg Tablet 50 mg PO DAILY RF: 0 atorvastatin 10 mg Tablet 10 mg PO BEDTIME RF: 0 Discontinued losartan 50 MG tablet 60 mg PO DAILY 090 Days Qty: 270 RF: 0 aspirin 81 mg Tablet 81 mg PO DAILY RF: 0 Diet/Activity/Treatments Diet: Carb-consistent/Diabetic Visit Report/Discharge Packet Instructions: DI for Esophageal Varices, DI for Cirrhosis, Gastrointestinal Bleeding, Nadolol Quality VTE Deep Vein Thrombosis/Pulmonary Embolism Present on Admission: No
== END 2020-11-15 13:39 | disposition home or self-care (01) | DRG 432 ==
LOC: ED 11-14 00:57 → AC 11-14 01:53 → ICU 11-14 07:13 → AC 11-18 15:28 → ICU 11-18 15:28
PROVIDERS: Internal Medicine; Specialist; Admitting Provider Nurse Practitioner Adult Health; Emergency Provider Emergency Medicine; Referring Provider Emergency Medicine; Visit Provider Nurse Practitioner Adult Health
PROC: 0DJ08ZZ Inspection of Upper Intestinal Tract, Via Natural or Artificial Opening Endoscopic (ICD-10-PCS; CPT 43235; principal; 2020-11-14 16:15)
DX: K74.60 Unspecified cirrhosis of liver (principal); I85.11 Secondary esophageal varices with bleeding; D62 Acute posthemorrhagic anemia; N17.9 Acute kidney failure, unspecified; E87.2 Acidosis; E66.9 Obesity, unspecified; Z68.31 Body mass index [BMI] 31.0-31.9, adult; I10 Essential (primary) hypertension; E78.5 Hyperlipidemia, unspecified; E11.9 Type 2 diabetes mellitus without complications; E03.9 Hypothyroidism, unspecified; D72.829 Elevated white blood cell count, unspecified; Z20.822 Contact with and (suspected) exposure to COVID-19; Z79.01 Long term (current) use of anticoagulants
CPT/HCPCS: 36415; 36430; 43235; 70450; 74176; 76705; 80048; 80053; 80061; 80320; 81001; 82009; 82140; 82550; 82553; 82805; 82962; 83605; 83690; 83735; 83880; 84100; 84145; 84439; 84443; 84484; 85007; 85014; 85018; 85025; 85610; 85730; 86704; 86803; 86850; 86900; 86901; 87040; 87077; 87086; 87147; 87186; 87635; 87797; 93005; 93010; 94762; 96365; 96375; 99221; 99285; C9803; P9016; C9113; J0330; J2405; J2543; J2704; J3010

== ENCOUNTER → 2021-01-23 14:38 | Outpatient (CLI) | payer OTHER, SELFPAY ==
[2020-11-14 03:30] VITALS: BMI 31.2
[2021-01-23 15:18] LABS: Ammonia (NH3) 9 umol/L (9-30)
[2021-01-23 15:31] LABS: Hematocrit 31.2 % (36-46); Mean Corpuscular Hemoglobin 26.3 PG (26-34); Mean Corpuscular Volume 82.2 fL (80-100); Platelet Count 140 X10^3/uL (150-400); Red Cell Distribution Width 19.6 % (11.6-14.8); White Blood Cell Count 7.8 X10^3/uL (4.5-11.0)
[2021-01-23 15:42] LABS: INR 1.3 (0.9-1.3); Prothrombin Time 14.2 SECONDS (10.1-12.7)
[2021-01-23 15:44] LABS: PTT Partial Thromboplastin Tim 31 SECONDS (26.4-36.2)
[2021-01-23 15:52] LABS: Alanine Aminotransferase 44 IU/L (<35); Albumin 3.5 g/dL (3.5-5.0); Albumin Globulin Ratio 1.1 (1.0-2.8); Alkaline Phosphatase 226 U/L (38-126); Aspartate Aminotransferase 45 IU/L (14-36); BUN Creatinine Ratio 34.2 (6-22); Bilirubin Total 1.3 mg/dL (0.2-1.3); Bilirubin Unconjugated 1.3 mg/dL (0.0-1.1); Blood Urea Nitrogen 26 mg/dL (7-17); Calcium 9.8 mg/dL (8.4-10.2); Carbon Dioxide 31 mmol/L (22-32); Chloride 106 mmol/L (98-107); Estimated Glomerular Filt Rate > 60.0 mL/min (>60); Globulin 3.3 g/dL (1.7-4.1); Glucose 117 mg/dL (80-110); HEMOLYSIS < 15 (0-50); Potassium 3.8 mmol/L (3.4-5.1); Sodium 144 mmol/L (137-145); Total Protein 6.8 g/dL (6.3-8.2)
[2021-01-23 15:56] LABS: Hemoglobin A1C% w Est Avg Glu 6.6 % (4.0-6.0)
[2021-01-23 16:23] LABS: Vitamin D 25 Hydroxy (D3) 81.5 ng/mL (30.0-100.0)
[2021-01-23 16:28] LABS: Free T3, Triiodothyronine Free 2.48 pg/mL (2.77-5.27); Free T4, Direct Thyroxine 2.35 ng/dL (0.78-2.19)
[2021-01-23 18:01] LABS: Neutrophils Absolute Manual 5772 /uL (3000-5900); Total Cells Counted 100
[2021-01-23 18:02] LABS: Hypochromasia 1+; Microcytosis 1+; Platelet Morphology Comment NOTE
== END ==
PROVIDERS: PCP Student in an Organized Health Care Education/Training Program; Referring Provider Student in an Organized Health Care Education/Training Program; Visit Provider Student in an Organized Health Care Education/Training Program
DX: E03.9 Hypothyroidism, unspecified (principal); I10 Essential (primary) hypertension; K72.90 Hepatic failure, unspecified without coma; E11.9 Type 2 diabetes mellitus without complications; E55.9 Vitamin D deficiency, unspecified
CPT/HCPCS: 36415; 80048; 80076; 82140; 82306; 83036; 84439; 84443; 84481; 85025; 85610; 85730

== ENCOUNTER → 2021-02-16 13:06 | Outpatient (CLI) | payer OTHER, SELFPAY ==
[2020-11-14 03:30] VITALS: BMI 31.2
[2021-02-16 17:40] LABS: Microalbumi Creatinin Ratio Ur 18.4 ug/mg CR (<30); Microalbumin Urine Random 5.1 mg/dL (0-1.6)
== END ==
PROVIDERS: PCP Student in an Organized Health Care Education/Training Program; Referring Provider Student in an Organized Health Care Education/Training Program; Visit Provider Student in an Organized Health Care Education/Training Program
DX: M85.852 Other specified disorders of bone density and structure, left thigh (principal); Z78.0 Asymptomatic menopausal state; E03.9 Hypothyroidism, unspecified; E11.9 Type 2 diabetes mellitus without complications; K72.90 Hepatic failure, unspecified without coma
CPT/HCPCS: 77080; 82043; 82570

== ENCOUNTER 2021-03-13 22:11 | Inpatient (IN) | payer OTHER, MEDICARE, SELFPAY ==
[2020-11-14 03:30] VITALS: BMI 31.2
[2021-03-13 22:25] VITALS: BP 122/62; PULSE 76; RESP 27; TEMP 37.1; O2SAT 95; BMI 36.1
[2021-03-13 22:30] VITALS: BP 122/62; PULSE 74; O2SAT 94
--- NOTE | 2021-03-13 22:49 | DI.RAD.S_ITS ---
PROCEDURE: XR CHEST 1V INDICATIONS: swelling in extremities TECHNIQUE: One view of the chest was acquired. COMPARISON: None. FINDINGS: Surgical changes and devices: None. Lungs and pleura: Lungs hypoinflated. Streaky opacities noted in the left lung base which likely represents atelectasis. Trace left-sided pleural effusion. No pneumothorax. Mediastinum: Mediastinal contours appear normal. Heart size is normal. Bones and chest wall: No suspicious bony lesions. Overlying soft tissues appear unremarkable. IMPRESSION: Trace left-sided pleural effusion. Dictated by: Velia John MD, PhD on 03/14/2021 at 8:47 Approved by: Velia John MD, PhD on 03/14/2021 at 8:48
[2021-03-13 23:00] VITALS: BP 137/67; PULSE 60; RESP 22; O2SAT 97
--- NOTE | 2021-03-13 23:18 | PC.NURSE ---
Patient reports generalized weakness since hospitalization back in Nov. Patient has had ongoing diarrhea. Atleast one episode per day. Denies blood in stool. Decrease appetite. Patient skin appear dry in general. Bilateral lower extremity pitting edema noted. Patient states that has continued to get worse from waste down since november as well.
[2021-03-13 23:30] VITALS: BP 116/65; PULSE 59; RESP 22; O2SAT 97
[2021-03-13 23:32] LABS: INR 1.2 (0.9-1.3); Prothrombin Time 14.1 SECONDS (10.1-12.7)
[2021-03-13 23:34] LABS: Add Manual Diff / Slide Review SLIDE REVIEW; Basophils Absolute Auto 0 /uL (0-100); Basophils Percent Auto 0.6 % (0-2); Eosinophils Absolute Auto 0 /uL (0-450); Eosinophils Percent Auto 0.4 % (2-4); Hematocrit 35.6 % (36-46); Hemoglobin 11.2 g/dL (12.0-16.0); Lymphocytes Absolute Auto 1200 /uL (1100-4500); Lymphocytes Percent Auto 14.9 % (25-40); Mean Corpuscular HGB Conc 31.6 % (30-36); Mean Corpuscular Hemoglobin 25.6 PG (26-34); Mean Corpuscular Volume 81.2 fL (80-100); Monocytes Absolute Auto 600 /uL (0-900); Monocytes Percent Auto 7.1 % (3-14); Neutrophils Absolute Auto 6100 /uL (1500-7000); Platelet Count 180 X10^3/uL (150-400); Red Blood Cell Count 4.38 X10^6/uL (4.0-5.2); Red Cell Distribution Width 21.1 % (11.6-14.8); White Blood Cell Count 7.9 X10^3/uL (4.5-11.0)
[2021-03-13 23:35] LABS: Alanine Aminotransferase 66 IU/L (<35); Albumin 3.6 g/dL (3.5-5.0); Albumin Globulin Ratio 0.9 (1.0-2.8); Alkaline Phosphatase 356 U/L (38-126); Aspartate Aminotransferase 80 IU/L (14-36); BUN Creatinine Ratio 39.4 (6-22); Bilirubin Total 1.9 mg/dL (0.2-1.3); Blood Urea Nitrogen 26 mg/dL (7-17); Calcium 10.1 mg/dL (8.4-10.2); Carbon Dioxide 31 mmol/L (22-32); Chloride 105 mmol/L (98-107); Creatine Kinase 107 U/L (30-135); Estimated Glomerular Filt Rate > 60.0 mL/min (>60); Globulin 3.9 g/dL (1.7-4.1); Glucose 94 mg/dL (80-110); HEMOLYSIS < 15 (0-50); Lipase 56 U/L (23-300); PTT Partial Thromboplastin Tim 31 SECONDS (26.4-36.2); Potassium 3.5 mmol/L (3.4-5.1); Sodium 144 mmol/L (137-145); Total Protein 7.5 g/dL (6.3-8.2)
[2021-03-13] MEDS: SODIUM CHLORIDE 0.9% 1,000 ML 150 ML IV (23:40)
[2021-03-13 23:47] LABS: NT-proBNP (BNP-Adult 18+) 1430 pg/mL (<125); Troponin I 0.013 ng/mL (0.01-0.034)
[2021-03-13 23:51] LABS: CKMB % Relative Index 2.4 % (1.5-5.0); Creatine Kinase MB 2.59 ng/mL (<2.37)
[2021-03-14] VITALS (19 sets, daily range): BP systolic 104–125; BP diastolic 58–75; PULSE 58–78; RESP 16–31; TEMP 36.3–36.7; O2SAT 89–97; BMI 36.1
--- NOTE | 2021-03-14 | PATH_ITS ---
Note [facility] Accession Number: [id number] TESTS RESULT FLAG UNITS REF RANGE LAB Clinician Provided Cytology Information No. of containers..01 Other (Miscellaneous) 01 ABDOMINAL FLUID DIAGNOSIS: 02 ABDOMINAL FLUID NEGATIVE FOR MALIGNANT CELLS. THIS INTERPRETATION INCLUDES EVALUATION OF A CELL BLOCK. Pathologist ICD10: 02 R18.8 02 Jamaal Lind MD, PhD, Pathologist NPI- [id number] Allen Wheeler, Structural Metal Fabricator Apprentice ([facility]) 01 65 CC, YELLOW, HAZY RECEIVED: FRESH IN ORANGE CAP CONTAINER. /PENDING SALE TO [facility] 03/15/2021 0909 Local FLAG LEGEND: L-Low Normal,H-High Normal,LL-Alert Low,HH-Alert High <-Panic Low,>-Panic High,A-Abnormal,AA-Critical Abnormal Performed at: 01 =Z [facility] [address], [place] [address] Nate Gotti MD, 02 LCLWA [facility] [address] [place] [id number] Heather Darby MD, Performed at: 01 [facility] [address], [place], [place] [id number] MD Nate Gotti MD Phone: [phone]
[2021-03-14 00:55] LABS: COVID19 - ADMIT (NP swab/PCR) Negative (Negative)
--- NOTE | 2021-03-14 01:30 | ED.WEAKNESS ---
HPI - Weakness General Chief complaint: Weakness Stated complaint: UNABLE TO WALK Time Seen by Provider: 03/13/21 22:49 Source: patient and family Mode of arrival: Wheelchair Limitations: no limitations History of Present Illness HPI Narrative: This is a pleasant 70-year-old female who comes in with increasing weakness since November. She states today she has been unable to get up off the toilet. She states that she has just been slowly having decreasing strength which she describes as generalized weakness. She has noted she has had some increasing bloating and swelling of her lower extremities. She has also had some diarrhea intermittently but has not appreciate any melena or hematochezia. She states that today her legs mildly worsened normal in terms of swelling. They are not her worst but not at her normal. She denies any chills but states she does feel cold frequently. She has had no fevers. She denies any chest pain or pressure. She has had shortness of breath over the last few months but with no acute worsening over the last few days or weeks. She does have a history of cirrhosis with unknown etiology and prior variceal bleed which was noted on EGD, hypertension, dyslipidemia diabetes type 2, psoriasis, hypothyroidism and colon polyps. Related Data Home Medications Medication Instructions Recorded Confirmed CA PANTOTHENATE/FOLIC ACID/VIT 1 tab PO Q DAY #0 06/22/11 02/20/21 (MULTIVITAMIN) folic acid 800 mcg PO DAILY 11/14/20 02/20/21 atorvastatin 10 mg tablet 10 mg PO BEDTIME 01/23/21 02/20/21 guselkumab 100 mg/mL subcutaneous 100 mg SUBCUT Q8W 01/23/21 02/20/21 auto-injector levothyroxine 100 mcg tablet 100 mcg PO DAILY 01/23/21 02/20/21 losartan 25 mg tablet 25 mg PO DAILY 01/23/21 02/20/21 metformin 500 mg tablet 1,000 mg PO BID tab 01/23/21 02/20/21 nadolol 40 mg tablet 40 mg PO DAILY 01/23/21 02/20/21 sitagliptin 50 mg tablet 50 mg PO DAILY 01/23/21 02/20/21 Previous Rx's Medication Instructions Recorded furosemide 40 mg tablet 40 mg PO DAILY #30 tab 02/20/21 potassium chloride 10 mEq 10 meq PO DAILY #30 cap 02/20/21 capsule,extended release Allergies Allergy/AdvReac Type Severity Reaction Status Date / Time No Known Drug Allergies Allergy Verified 02/20/21 16:38 Review of Systems Review of Systems ROS Unobtainable: All systems reviewed & are unremarkable except as noted in HPI and below Patient History Medical History Acquired hypothyroidism Essential hypertension Headache History of colon polyps Hyperlipidemia Mumps Non-insulin dependent type 2 diabetes mellitus Osteoarthritis Psoriasis Surgical History Anesthesia History of colonoscopy History of hysterectomy Status post rotator cuff repair Family History Father Cancer Mother Cancer Social History (System 01/23/21 @ 14:37 by Maria Dolores Malave) marital status: household members: spouse lives independently: Yes Smoking Status: Never smoker alcohol intake: never Smoking Status: Never smoker alcohol intake frequency: 0-2 drinks per day Substance Use Type: does not use Exam Narrative Exam Narrative: GEN: Chronically jaundiced, ill-appearing female, alert and oriented x 3, patient appears to be in mild distress. HEENT: Atraumatic, pupils are equal round reactive to light, extraocular movements are intact, nares are clear, patient appears to have scleral icterus, there is no conjunctival pallor. Throat is clear without any exudates, erythema, tonsillar enlargement or uvular deviation HEART: Regular rate and rhythm without murmur, clicks, rubs. LUNGS:Lungs clear to auscultation, no wheezes, rales, crackles, chest moves symmetrically ABD:bowel sounds normal, soft, non-tender, no guarding, rebound, rigidity, no masses noted, no hepatosplenomegaly, patient has a large pannus more consistent with obesity but she does appear to have some fluid on examination. :No CVA tenderness MSCL: Non-tender, no muscle atrophy, patient has bilateral lower extremity edema. Gait was not tested. Patient has full range of motion of upper extremities. NEURO:CN 2-12 intact, sensation normal, Initial Vital Signs Initial Vital Signs: Vital Signs Temperature 98.7 F 03/13/21 22:25 Pulse Rate 76 03/13/21 22:25 Respiratory Rate 27 H 03/13/21 22:25 Blood Pressure 122/62 03/13/21 22:25 Pulse Oximetry 95 03/13/21 22:25 Scores GCS Viry coma scale eye opening: Spontaneous Viry coma scale verbal response: Orientated Viry coma scale motor response: Obey commands Viry coma scale total score: 15 Course Orders Ordered: ED Orders 03/13/21 22:49 XR chest 1V Stat EKG-12 Lead Stat 03/13/21 23:01 COVID19 - ADMIT ([employer] swab/PCR) Stat 03/13/21 23:04 Complete Blood Count AUTO DIFF Stat Comprehensive Metabolic Panel Stat Lipase Stat NT-proBNP (BNP-Adult 18+) Stat Partial Thromboplastin Time Stat Prothrombin Time INR Stat Troponin & CK Cardiac Panel Stat 03/14/21 02:04 US abdomen complete Stat 03/14/21 05:15 Education, smoking cessation ONGOING 03/14/21 05:20 EC echo doppler complete Urgent 03/14/21 05:22 Education, smoking cessation ONGOING 03/14/21 06:00 Complete Blood Count AUTO DIFF DAILY Comprehensive Metabolic Panel DAILY Hemoglobin A1C% w Est Avg Glu Routine Hepatic (Liver) Panel Routine Lipid Panel Routine Magnesium Routine NT-proBNP (BNP-Adult 18+) DAILY Prothrombin Time INR DAILY Troponin I Routine 03/14/21 06:21 Troponin & CK Cardiac Panel Urgent 03/15/21 06:00 Complete Blood Count AUTO DIFF DAILY Comprehensive Metabolic Panel DAILY NT-proBNP (BNP-Adult 18+) DAILY Prothrombin Time INR DAILY 03/16/21 06:00 Complete Blood Count AUTO DIFF DAILY Comprehensive Metabolic Panel DAILY Prothrombin Time INR DAILY Dextrose (Dextrose 50 % In Water 25 Gm/50 Ml Syringe) 25 gm IV PRN PRN PRN Reason: Hypoglycemia Furosemide (Furosemide 40 Mg/4 Ml Vial) 40 mg IV BID [facility] Insulin Human Lispro (Insulin Lispro 100 Unit/Ml 3ml Vial) 0 unit SUBCUT ACHS EUSEBIA; Protocol Naloxone HCl (Naloxone 0.4 Mg/Ml Vial) 0.2 mg IV Q2MIN PRN PRN Reason: Opiate Reversal Discontinued Medications Furosemide (Furosemide 40 Mg/4 Ml Vial) 40 mg IV NOW ONE Stop: 03/14/21 02:05 Last Admin: 03/14/21 02:14 Dose: 40 mg Documented by: JORGE Sodium Chloride (Normal Saline 0.9%) 1,000 mls @ 150 mls/hr IV CONT EUSEBIA Last Infusion: 03/14/21 02:09 Dose: 150 mls/hr Documented by: Admin: 03/13/21 23:40 Dose: 150 mls/hr Documented by: MUKESH Consultations Consultation #1: [facility] Joe accepts but will confirm bed availability after 7am with coordinator. She will put in orders if there is a bed available. Time: 04:53 Vital Signs Vital signs: Vital Signs - 8 hr 03/13/21 23:00 03/13/21 23:30 03/14/21 00:00 Pulse Rate 60 59 L 60 Respiratory Rate 22 22 22 Blood Pressure 137/67 116/65 104/60 Pulse Oximetry 97 97 96 03/14/21 00:30 03/14/21 01:00 03/14/21 01:01 Pulse Rate 58 L 69 68 Respiratory Rate 19 31 H 29 H Blood Pressure 118/64 125/60 Pulse Oximetry 94 89 L 90 L 03/14/21 01:30 03/14/21 02:00 03/14/21 02:01 Pulse Rate 66 70 70 Respiratory Rate 19 31 H 26 H Blood Pressure 115/58 L 125/70 Pulse Oximetry 92 93 93 03/14/21 02:30 03/14/21 03:03 03/14/21 03:30 Pulse Rate 69 76 64 Respiratory Rate 21 24 17 Blood Pressure 119/69 Pulse Oximetry 91 95 03/14/21 04:00 03/14/21 06:06 Pulse Rate 59 L 59 L Respiratory Rate 17 16 Blood Pressure 115/75 Pulse Oximetry 92 92 MDM - Weakness Lab Data Attestation: I reviewed the patient's lab results. Result diagrams: 03/13/21 23:04 03/13/21 23:04 Labs: Lab Results 03/13/21 03/13/21 03/13/21 Range/Units 23:01 23:04 23:04 WBC 7.9 (4.5-11.0) X10^3/uL RBC 4.38 (4.0-5.2) X10^6/uL Hgb 11.2 L (12.0-16.0) g/dL Hct 35.6 L (36-46) % MCV 81.2 (80-100) fL MCH 25.6 L (26-34) PG MCHC 31.6 (30-36) % RDW 21.1 H (11.6-14.8) % Plt Count 180 (150-400) X10^3/uL Neut % (Auto) 77.0 H (50-75) % Lymph % (Auto) 14.9 L (25-40) % [place] % (Auto) 7.1 (3-14) % Eos % (Auto) 0.4 L (2-4) % Baso % (Auto) 0.6 (0-2) % Neut # (Auto) 6100 (1777-6797) /uL Lymph # (Auto) 1200 (3087-7535) /uL [place] # (Auto) 600 (0-900) /uL Eos # (Auto) 0 (0-450) /uL Baso # (Auto) 0 (0-100) /uL RBC Morphology See below Anisocytosis 3+ H PT 14.1 H (10.1-12.7) SECONDS INR 1.2 (0.9-1.3) APTT 31 (26.4-36.2) SECONDS Sodium (137-145) mmol/L Potassium (3.4-5.1) mmol/L Chloride (98-107) mmol/L Carbon Dioxide (22-32) mmol/L BUN (7-17) mg/dL Creatinine (0.52-1.04) mg/dL Estimated GFR (>60) mL/min BUN/Creatinine Ratio (6-22) Glucose (80-110) mg/dL Calcium (8.4-10.2) mg/dL Total Bilirubin (0.2-1.3) mg/dL AST (14-36) IU/L ALT (<35) IU/L Alkaline Phosphatase (38-126) U/L Total Creatine Kinase (30-135) U/L CK-MB (CK-2) (<2.37) ng/mL CK-MB (CK-2) Rel Index (1.5-5.0) % Troponin I (0.01-0.034) ng/mL NT-Pro-B Natriuret Pep (<125) pg/mL Total Protein (6.3-8.2) g/dL Albumin (3.5-5.0) g/dL Globulin (1.7-4.1) g/dL Albumin/Globulin Ratio (1.0-2.8) Lipase (23-300) U/L SARS-CoV-2 (PCR) Negative (Negative) 03/13/21 Range/Units 23:04 WBC (4.5-11.0) X10^3/uL RBC (4.0-5.2) X10^6/uL Hgb (12.0-16.0) g/dL Hct (36-46) % MCV (80-100) fL MCH (26-34) PG MCHC (30-36) % RDW (11.6-14.8) % Plt Count (150-400) X10^3/uL Neut % (Auto) (50-75) % Lymph % (Auto) (25-40) % [place] % (Auto) (3-14) % Eos % (Auto) (2-4) % Baso % (Auto) (0-2) % Neut # (Auto) (0208-3840) /uL Lymph # (Auto) (0258-9247) /uL [place] # (Auto) (0-900) /uL Eos # (Auto) (0-450) /uL Baso # (Auto) (0-100) /uL RBC Morphology Anisocytosis PT (10.1-12.7) SECONDS INR (0.9-1.3) APTT (26.4-36.2) SECONDS Sodium 144 (137-145) mmol/L Potassium 3.5 (3.4-5.1) mmol/L Chloride 105 (98-107) mmol/L Carbon Dioxide 31 (22-32) mmol/L BUN 26 H (7-17) mg/dL Creatinine 0.66 (0.52-1.04) mg/dL Estimated GFR > 60.0 (>60) mL/min BUN/Creatinine Ratio 39.4 H (6-22) Glucose 94 (80-110) mg/dL Calcium 10.1 (8.4-10.2) mg/dL Total Bilirubin 1.9 H (0.2-1.3) mg/dL AST 80 H (14-36) IU/L ALT 66 H (<35) IU/L Alkaline Phosphatase 356 H (38-126) U/L Total Creatine Kinase 107 (30-135) U/L CK-MB (CK-2) 2.59 H (<2.37) ng/mL CK-MB (CK-2) Rel Index 2.4 (1.5-5.0) % Troponin I 0.013 (0.01-0.034) ng/mL NT-Pro-B Natriuret Pep 1430 H (<125) pg/mL Total Protein 7.5 (6.3-8.2) g/dL Albumin 3.6 (3.5-5.0) g/dL Globulin 3.9 (1.7-4.1) g/dL Albumin/Globulin Ratio 0.9 L (1.0-2.8) Lipase 56 (23-300) U/L SARS-CoV-2 (PCR) (Negative) Imaging Data Chest x-ray: Radiologist Impression: Left partial Base atelectasis with possible minimal infusion. There may be minimal bilateral pleural effusions. Cardiomegaly. No acute fracture. ECG Data Attestation: I personally reviewed and interpreted this ECG as follows: Prior ECG tracings: available for review Interpretation: Sinus rhythm, occasional PVC rate of 68, MD 134 QRS is 76 and QTC of [address] elevation. Patient does appear to have Q-wave in lead 3. Shows for EKG from 11/13/2020 which appears similar. MDM Narrative Medical decision making narrative: This is a 70-year-old female comes emergency department with progressive weakness. Patient was unable to get off the toilet today but did not have any lateralizing weakness. She has known cirrhosis with unknown etiology according to her as well as her primary care and prior hospital stay. She has had a history of variceal bleeds but does not appear to be having any acute bleed today. Her hemoglobin actually appears stable from comparison to last several months. Her vitals here have been stable. She has had increasing swelling in her lower extremities and somewhat in her abdomen. She does have an elevated BNP troponin is negative, chest x-ray shows left base partial atelectasis with possible minimal effusions. She also has some vascular crowding. And ultrasound imaging was obtained she has cirrhotic changes with some moderate abdominal ascites gallbladder wall thickening although this is likely secondary to her hypo albumin state. Patient does have an increase in her bilirubin, liver enzymes but with normal renal function and is improved from November. Patient does not have any abdominal pain, she has had no fevers. She is nontender on examination. She was given Lasix here in the department and discussed with [employer]ETING CONSULTANT Diaz for observation for weakness and CHF. Discharge Plan Departure Patient Disposition: Admitted as Observation Clinical Impression: Weakness, CHF (congestive heart failure)
--- NOTE | 2021-03-14 02:04 | DI.US.S_ITS ---
PROCEDURE: US ABDOMEN COMPLETE INDICATIONS: cirrhosis, sob TECHNIQUE: Real-time scanning was performed of the abdominal and retroperitoneal organs, with image documentation. COMPARISON: [facility], CT, CT ABDOMEN PELVIS WO CON, 11/13/2020, 23:18. FINDINGS: Liver: Liver is normal in size and homogeneous in echotexture. Liver is diffusely echogenic. Liver has nodular margins. Gallbladder: No gallstones. Gallbladder wall is thickened to 6.9 millimeters. No pericholecystic fluid. No sonographic Melchor sign. Biliary ducts: Intrahepatic bile ducts are non-dilated. Extrahepatic biliary system is obscured by bowel gas and cannot be evaluated. Pancreas: Obscured by bowel gas and cannot be evaluated. Spleen: Spleen is homogeneous in echotexture. Spleen is prominent measuring 11.2 x 11.1 x 4.9 centimeters Kidneys: Kidneys are normal in size and echotexture. Right kidney measures 10.3 cm long; left kidney measures 9.4 cm long. No hydronephrosis or nephrolithiasis. No solid masses. Right adrenal nodule noted not significantly changed in size compared to November 13, 2020 CT scan. Aorta: Obscured by bowel gas and cannot be evaluated. Iliacs: Obscured by bowel gas and cannot be evaluated. IVC: Not visualized and cannot be evaluated.. Miscellaneous: Moderate amount of ascites. IMPRESSION: 1. Echogenic liver with nodular margins highly suspicious for hepatic cirrhosis 2. Moderate ascites. 3. Gallbladder wall thickening which could be due to cholecystitis or could be related to hepatic disease with hypoalbuminemia. 4. Possible mild splenomegaly concerning for sequela of portal hypertension. Dictated by: Velia John MD, PhD on 03/14/2021 at 8:23 Approved by: Velia John MD, PhD on 03/14/2021 at 8:27
[2021-03-14] MEDS: FUROSEMIDE 40 MG/4 ML VIAL IV (02:14)
[2021-03-14 04:06] LABS: Anisocytosis 3+
--- NOTE | 2021-03-14 05:20 | DI.ECHO.S_ITS ---
[facility]---------+ [facility] +---------+ : : [address] [place] : : : : [id number] : : : : Phone: [phone] Echocardiogram Report + + :Name: SYEDA AARON Study Date: 03/15/2021 Height: 67 in : :[facility] ReadingLocation: Weight: 231 lb: : Gender: Female BSA: 2.1 m2 : :: 1950 Age: 70 yrs BP: 89/56 mmHg: :Reason For Study: Congestive Heart Failure : :Ordering Physician: ALYSSA, : :CARMEN Performed By: Gume Browning : :Referring: CARMEN SHAH : + + Interpretation Summary Normal sinus rhythm. Normal LV size; mild concentric LVH; normal wall motion and LV systolic function. EF is 65-70%. Severe LA enlargement; otherwise normal chamber sizes. No significant valvular abnormalities. There is a moderatel left pleural effusion. No prior study available for comparison. Procedure: A two-dimensional transthoracic echocardiogram with color flow and Doppler was performed. The study quality was technically adequate. There is no prior echocardiogram noted for this patient. Left Ventricle: The left ventricle is normal in size. There is mild concentric left ventricular hypertrophy. Left ventricular systolic function is normal. The ejection fraction is estimated to be 65-70%. There are no focal wall motion abnormalities. Diastolic parameters suggest a pseudonormalization pattern, consistent with probable elevated filling pressures. Right Ventricle: The right ventricle is normal in size and function. Atria: The left atrium is severely dilated. The right atrium is normal in size. There is no Doppler evidence for an interatrial shunt. Mitral Valve: There is mild mitral annular calcification. There is mild mitral regurgitation. Aortic Valve: The aortic valve is normal in structure and function. There is mild aortic regurgitation. Tricuspid Valve: The tricuspid valve is normal in structure and function. There is mild tricuspid regurgitation. The right ventricular systolic pressure is estimated to be at least 33 mmHg based on an estimated right atrial pressure of 3 mm Hg. Pulmonic Valve: The pulmonic valve is normal in structure and function. There is no pulmonic valvular regurgitation. Great Vessels: The aortic root is normal size. The dimensions of the ascending aorta are normal. The IVC is of normal diameter and collapses greater than 50% with a sniff. This suggests a low right atrial pressure of 3 mm Hg. Pericardium/ Pleura There is no pericardial effusion. There is a moderate left-sided pleural effusion. MMode/2D Measurements & Calculations LVIDd: 4.7 cm LVOT diam: 2.1 cm LVIDs: 2.9 cm Ao root diam: 2.9 cm FS: 37.3 % asc Aorta Diam: 3.2 cm IVSd: 1.2 cm LVPWd: 1.2 cm LV story. diameter/BSA (cm/m^2): 2.2 LV sys. diameter/BSA (cm/m^2): 1.4 LA A2 area: 29.4 cm2 RA long axis: 5.0 cm LA A4 area: 30.8 cm2 RA area: 15.5 cm2 LA length (vol): 6.9 cm RA vol: 41.0 ml LA vol: 111.3 ml RA : 19.1 ml/m2 LA vol index: 51.8 ml/m2 IVC diam: 2.1 cm TAPSE: 2.1 cm Doppler Measurements & Calculations Ao V2 max: 143.8 cm/sec LVOT Max Pillo: 112.4 cm/sec Ao V2 mean: 101.9 cm/sec LV V1 max P.1 mmHg Ao max P.3 mmHg LV V1 VTI: 25.1 cm Ao mean P.5 mmHg ISACC(I,D): 2.8 cm2 Ao V2 VTI: 30.2 cm ISACC(V,D): 2.6 cm2 sev ratio: 0.83 ISACC indexed to BSA (cm^2/m^2): 1.3 MV E max pillo: 109.8 cm/sec TR max pillo: 273.3 cm/sec MV A max pillo: 83.4 cm/sec TR max P.9 mmHg MV E/A: 1.3 PA pr(Accel): 21.6 mmHg Med Peak E' Pillo: 5.7 cm/sec E/E' med: 19.4 Lat Peak E' Pillo: 9.0 cm/sec E/E' lat: 12.2 E/e' average: 15.8 MV dec time: 0.20 sec SV(LVOT): 85.0 ml Electronically signed by: Soumya Ba M.D. on Reading Physician:03/15/2021 01:13 PM
--- NOTE | 2021-03-14 05:55 | PM.HP.1 ---
History of Present Illness History of Present Illness Date Patient Seen: 03/14/21 Time Patient Seen: 05:56 Chief complaint: UNABLE TO WALK Narrative: Patient is a pleasant 70-year-old female Nicky Lopez who presents to the ED with increasing weakness since November. She states today she has been unable to get up off the toilet. She states that she has just been slowly having decreasing strength which she describes as generalized weakness. Patient complains of worsening abdominal pain and distension since November, pain is a 1/10 at this time constant, dull does not change with intensity patient denies nausea or vomiting does note diarrhea couple times a day every couple days for the past several months, she complains of positive chills and worsening shortness of breath denies chest pain. She has noted she has had some increasing bloating and swelling of her lower extremities, and notes that the discoloration to her toes is new. She has not appreciate any melena or hematochezia. She states that today her legs mildly worsened normal in terms of swelling. They are not her worst but not at her normal. She has had no fevers. She denies any chest pain or pressure. She has had shortness of breath over the last few months but with no acute worsening over the last few days or weeks. Patient was hospitalized in early November 2020 for cirrhosis and variceal bleeding noted on EGD, hypertension, dyslipidemia diabetes type 2, psoriasis, hypothyroidism and colon polyps. Patient's vitals upon admit temp 98.7?, BP 119/69, HR 59, R 17, O2 saturation 90% on room air. Labs HGB 11.2, HCT 35.6, BUN 26, BUN creatinine ratio 39.4, bili 1.9, AST 80, ALT 66, alk-phos 356, bili/CR T ratio 39.4, PT 14.1, BNP 1430, CK-2: 2.59, normal troponin. EKG: Sinus rhythm with occasional PVCs rate 68, Q-waves in lead 3. Without ST or T-wave changes. CXR:Left partial Base atelectasis with possible minimal infusion. There may be minimal bilateral pleural effusions. Cardiomegaly. ABD U/S:cirrhotic changes with some moderate abdominal ascites gallbladder wall thickening. Patient to be admitted for weakness and CHF. Patient History Medical History Acquired hypothyroidism Essential hypertension Headache History of colon polyps Hyperlipidemia Mumps Non-insulin dependent type 2 diabetes mellitus Osteoarthritis Psoriasis Surgical History Anesthesia History of colonoscopy History of hysterectomy Status post rotator cuff repair Family & Social History Family History Father Cancer Mother Cancer Social History: household members spouse lives independently Yes Safety & Behavioral: Feels Safe in Current Yes Environment Tobacco & Substance use: Smoking Status Never smoker alcohol intake never alcohol intake frequency 0-2 drinks per day Substance Use Type does not use Meds Home Medications and Allergies Home Medications Medication Instructions Recorded Confirmed Type CA PANTOTHENATE/FOLIC ACID/VIT 1 tab PO Q DAY #0 06/22/11 02/20/21 History (MULTIVITAMIN) folic acid 800 mcg PO DAILY 11/14/20 02/20/21 History atorvastatin 10 mg tablet 10 mg PO BEDTIME 01/23/21 02/20/21 History guselkumab 100 mg/mL subcutaneous 100 mg SUBCUT Q8W 01/23/21 02/20/21 History auto-injector levothyroxine 100 mcg tablet 100 mcg PO DAILY 01/23/21 02/20/21 History losartan 25 mg tablet 25 mg PO DAILY 01/23/21 02/20/21 History metformin 500 mg tablet 1,000 mg PO BID tab 01/23/21 02/20/21 History nadolol 40 mg tablet 40 mg PO DAILY 01/23/21 02/20/21 History sitagliptin 50 mg tablet 50 mg PO DAILY 01/23/21 02/20/21 History furosemide 40 mg tablet 40 mg PO DAILY #30 tab 02/20/21 02/20/21 Rx potassium chloride 10 mEq 10 meq PO DAILY #30 cap 02/20/21 02/20/21 Rx capsule,extended release Allergies Allergy/AdvReac Type Severity Reaction Status Date / Time No Known Drug Allergies Allergy Verified 02/20/21 16:38 Review of Systems Review of Systems ROS: Yes All systems reviewed with the patient and are negative except as otherwise documented Exam Vital Signs (past 8 hours): - 03/13/21 22:25 03/13/21 22:30 03/13/21 23:00 Temperature 98.7 F Pulse Rate 76 74 60 Respiratory Rate 27 H 22 Blood Pressure 122/62 122/62 137/67 Pulse Oximetry 95 94 97 03/13/21 23:30 03/14/21 00:00 03/14/21 00:30 Temperature Pulse Rate 59 L 60 58 L Respiratory Rate 22 22 19 Blood Pressure 116/65 104/60 118/64 Pulse Oximetry 97 96 94 03/14/21 01:00 03/14/21 01:01 03/14/21 01:30 Temperature Pulse Rate 69 68 66 Respiratory Rate 31 H 29 H 19 Blood Pressure 125/60 115/58 L Pulse Oximetry 89 L 90 L 92 03/14/21 02:00 03/14/21 02:01 03/14/21 02:30 Temperature Pulse Rate 70 70 69 Respiratory Rate 31 H 26 H 21 Blood Pressure 125/70 119/69 Pulse Oximetry 93 93 91 03/14/21 03:03 03/14/21 03:30 03/14/21 04:00 Temperature Pulse Rate 76 64 59 L Respiratory Rate 24 17 17 Blood Pressure Pulse Oximetry 95 92 Oxygen Delivery Method Room Air Narrative Exam Narrative: General: Patient is a well-developed, well-nourished in no distress at this time. HEENT: Normocephalic, atraumatic, extraocular muscles intact, oral pharynx is clear and mucous membranes are moist. Neck is supple and symmetric, trachea is midline, no adenopathy, no thyroid enlargement, nontender, no masses palpated. Negative for JVD Chest: Normal AP diameter and contour without kyphoscoliosis, no nasal flaring, retractions, or tachypneic labored Lungs: Auscultation of all lung wynn are clear without adventitious sounds, wheezes, rhonchi, or rales. Cardio: S1 & S2 with regular rate and rhythm without murmur, rubs, or gallops, no carotid bruit, no cardiac pulsations present. Abdomen: Soft distended, generalized tenderness to left upper & lower quadrants, negative for organomegaly, or masses. Bowel sounds are hypoactive in the left quadrants, present in all 4 quadrants without guarding or rebound, no CVA tenderness. Musculoskeletal: Muscle strength and tone are equal within normal limits, no deformity, crepitus, effusions, cyanosis, clubbing present. Bilateral peripheral edema pitting +4, greater on the left over right. Full range of motion intact radial and pedal pulses are normal. Skin: Warm dry and intact without rashes, ulcerations or petechiae. Neuro: Alert and orientated x3, strength is +5/5 in all extremities, sensation to touch intact, no gross deficits noted of cranial nerves. Psych: Patient has a well-kept appearance, appropriate affect, mental status attitude thought context and judgment are appropriate for age. Objective Labs Result Diagrams: 03/13/21 23:04 03/13/21 23:04 Labs: Laboratory Results - last 24 hr 03/13/21 03/13/21 03/13/21 23:01 23:04 23:04 WBC 7.9 RBC 4.38 Hgb 11.2 L Hct 35.6 L MCV 81.2 MCH 25.6 L MCHC 31.6 RDW 21.1 H Plt Count 180 Neut % (Auto) 77.0 H Lymph % (Auto) 14.9 L [place] % (Auto) 7.1 Eos % (Auto) 0.4 L Baso % (Auto) 0.6 Neut # (Auto) 6100 Lymph # (Auto) 1200 [place] # (Auto) 600 Eos # (Auto) 0 Baso # (Auto) 0 RBC Morphology See below Anisocytosis 3+ H PT 14.1 H INR 1.2 APTT 31 Sodium Potassium Chloride Carbon Dioxide BUN Creatinine Estimated GFR BUN/Creatinine Ratio Glucose Calcium Total Bilirubin AST ALT Alkaline Phosphatase Total Creatine Kinase CK-MB (CK-2) CK-MB (CK-2) Rel Index Troponin I NT-Pro-B Natriuret Pep Total Protein Albumin Globulin Albumin/Globulin Ratio Lipase SARS-CoV-2 (PCR) Negative 03/13/21 23:04 WBC RBC Hgb Hct MCV MCH MCHC RDW Plt Count Neut % (Auto) Lymph % (Auto) [place] % (Auto) Eos % (Auto) Baso % (Auto) Neut # (Auto) Lymph # (Auto) [place] # (Auto) Eos # (Auto) Baso # (Auto) RBC Morphology Anisocytosis PT INR APTT Sodium 144 Potassium 3.5 Chloride 105 Carbon Dioxide 31 BUN 26 H Creatinine 0.66 Estimated GFR > 60.0 BUN/Creatinine Ratio 39.4 H Glucose 94 Calcium 10.1 Total Bilirubin 1.9 H AST 80 H ALT 66 H Alkaline Phosphatase 356 H Total Creatine Kinase 107 CK-MB (CK-2) 2.59 H CK-MB (CK-2) Rel Index 2.4 Troponin I 0.013 NT-Pro-B Natriuret Pep 1430 H Total Protein 7.5 Albumin 3.6 Globulin 3.9 Albumin/Globulin Ratio 0.9 L Lipase 56 SARS-CoV-2 (PCR) Assessment & Plan Assessment & Plan narrative: This patient requires acute care inpatient hospital management for weakness likely the result of CHF, but need to rule out repeat variceal bleed, after failing outpatient management. The patient is at much higher risk for medical and surgical complications because of history of cirrhosis, variceal bleed, hypertension, dyslipidemia diabetes type 2, psoriasis, hypothyroidism. These factors increase the difficulty and complexity of medical and surgical interventions and increases the chances of poor outcomes such as morbidity and mortality. The patient's obesity will impact her oxygenation, which will likely contribute to risk for acute respiratory failure. 1. Weakness likely due to congestive heart failure, suspect acute on chronic, and hepatic failure with cirrhosis and ascites, present on admission -patient was admitted for a variceal bleed in November of 2020, rule out repeat bleed as well. -recommend paracentesis vitals upon admit temp 98.7?, BP 119/69, HR 59, R 17, O2 saturation 90% on room air. Labs HGB 11.2, HCT 35.6, BUN 26, BUN creatinine ratio 39.4, bili 1.9, AST 80, ALT 66, alk-phos 356, bili/CR T ratio 39.4, PT 14.1, BNP 1430, CK-2: 2.59, normal troponin. EKG: Sinus rhythm with occasional PVCs rate 68, Q-waves in lead 3. Without ST or T-wave changes. CXR:Left partial Base atelectasis with possible minimal infusion. There may be minimal bilateral pleural effusions. Cardiomegaly.ABD U/S:cirrhotic changes with some moderate abdominal ascites gallbladder wall thickening. -Admit to [facility], vital signs q.4 hours, orthostatics q.a.m., call for respiratory rate> 30, increasing O2 requirements, systolic blood pressure <95, urinary output<100cc/hr, activity bed rest with bathroom privileges of only with assist, fall precautions, daily weights with Lasix adjustments as needed, strict I&Os, O2 as needed to maintain a SaO2>92%, diet 2 g sodium restriction, Fluid restriction 2 L/D -Labs ordered: Daily CBC, CMP, troponin x3 to assess trend, repeat BMP in a.m., TSH, ABGs to be ordered if patient develops respiratory distress. -hold Nabil/Arb medications if creatinine>3, or hypotension present Start IV Lasix 40mg BID. -repeat BNP, serial troponins, stress test -not ordered due to concerns regarding patient's weakness, echo-ordered for today -monitor renal function electrolytes keep K greater than 4, Mag greater than 2. 2.Chronic hepatic failure with cirrhosis, of unknown etiology, with ascities acute on chronic, present on admission, stable -the patient is unaware of liver cirrhosis identified on CT scan 11/2020 but is consistent with mildly elevated AST 80 and ALT 66, bili 1.9, alk-phos 356, and INR 1.2 -obtain hepatitis panel. -will recheck INR daily . 3. Diabetes, non insulin dependent Type 2, chronic, not present on admission, well controlled -patient presents with glucose of 94 on initial labs. - Hold patient metformin. -ordered fingerstick blood sugars ACHS and will cover with low range correctional insulin. -will obtain hemoglobin A1c. 4. Hypertension essential, chronic, not present on admission, well controlled -patient presents with a blood pressure on admit 119/69 -will hold patient's losartan and spironolactone until pressure improves. 5. Hypothyroidism, chronic, stable -will continue patient's thyroid supplementation with 6. Psoriasis, chronic, stable -patient is on Humira therapy currently between episodic treatments. 7. Hyperlipidemia, chronic, stable -will continue atorvastatin when patient is again taking oral medications. Code status: Full code Surrogate decisionmaker: patient designates her COVID PCR: Negative VTE prophylaxis: Bilateral SCDs will wait on prophylaxis until bleed is ruled out with consistent H/H and paracentesis. Scores GCS Purdys coma scale eye opening: Spontaneous Purdys coma scale verbal response: Orientated Viry coma scale motor response: Obey commands Viry coma scale total score: 15 CHADS-VASc Congestive heart failure: yes Hypertension: yes Age 75 years or older: no Diabetes mellitus: yes Stroke, TIA, or TE: no Vascular disease: yes Age 65 to 74 years: yes Sex category (female): Female CHADS-VASc Score: 6 Wells' Criteria for PE Clinical signs and symptoms of DVT: No PE is #1 Dx or equally likely: No Heart rate > 100: No Immobilization at least 3 days or surg in previous 4 weeks: No History of PE or DVT: No Hemoptysis: No Malignancy w/Treatment within 6 months or palliative: No Wells' PE Score total: 0 Quality MIPS - Admit I confirm the patient?s Advance Care Plan is present, Code status is documented, Surrogate decision maker is in patient?s record [If Yes, STOP here]: Yes
[2021-03-14 08:15] LABS: Add Manual Diff / Slide Review NO; Basophils Absolute Auto 0 /uL (0-100); Basophils Percent Auto 0.3 % (0-2); Eosinophils Absolute Auto 0 /uL (0-450); Eosinophils Percent Auto 0.4 % (2-4); Hematocrit 31.7 % (36-46); Hemoglobin 10.1 g/dL (12.0-16.0); Lymphocytes Absolute Auto 1200 /uL (1100-4500); Mean Corpuscular Hemoglobin 25.9 PG (26-34); Mean Corpuscular Volume 81.2 fL (80-100); Monocytes Absolute Auto 400 /uL (0-900); Monocytes Percent Auto 5.7 % (3-14); Neutrophils Absolute Auto 5200 /uL (1500-7000); Neutrophils Percent Auto 76.6 % (50-75); Platelet Count 146 X10^3/uL (150-400); Red Cell Distribution Width 21.6 % (11.6-14.8); White Blood Cell Count 6.8 X10^3/uL (4.5-11.0)
[2021-03-14 08:20] LABS: INR 1.3 (0.9-1.3); Prothrombin Time 15.3 SECONDS (10.1-12.7)
[2021-03-14 08:25] LABS: Creatine Kinase 64 U/L (30-135)
[2021-03-14 08:27] LABS: Alanine Aminotransferase 57 IU/L (<35); Albumin 2.9 g/dL (3.5-5.0); Albumin Globulin Ratio 0.9 (1.0-2.8); Alkaline Phosphatase 282 U/L (38-126); Aspartate Aminotransferase 66 IU/L (14-36); BUN Creatinine Ratio 38.2 (6-22); Bilirubin Total 1.6 mg/dL (0.2-1.3); Bilirubin Unconjugated 1.3 mg/dL (0.0-1.1); Blood Urea Nitrogen 26 mg/dL (7-17); Calcium 9.6 mg/dL (8.4-10.2); Carbon Dioxide 32 mmol/L (22-32); Chloride 105 mmol/L (98-107); Cholesterol 88 mg/dL (140-199); Estimated Glomerular Filt Rate > 60.0 mL/min (>60); Globulin 3.4 g/dL (1.7-4.1); Glucose 94 mg/dL (80-110); HDL Cholesterol 29 mg/dL (40-60); HEMOLYSIS < 15 (0-50); LDL Cholesterol Calculated 39 mg/dL (<100); Magnesium 1.3 mg/dL (1.6-2.3); Potassium 3.6 mmol/L (3.4-5.1); Sodium 143 mmol/L (137-145); Total Protein 6.3 g/dL (6.3-8.2); Triglycerides 100 mg/dL (35-150)
[2021-03-14 08:30] LABS: Anisocytosis 3+; Poikilocytosis 1+
[2021-03-14 08:35] LABS: NT-proBNP (BNP-Adult 18+) 1340 pg/mL (<125)
[2021-03-14 08:37] LABS: Troponin I 0.014 ng/mL (0.01-0.034)
[2021-03-14 08:40] LABS: Hemoglobin A1C% w Est Avg Glu 6.3 % (4.0-6.0)
[2021-03-14 08:49] LABS: Troponin I 0.016 ng/mL (0.01-0.034)
--- NOTE | 2021-03-14 08:55 | DI.US.S_ITS ---
PROCEDURE: US PARACENTESIS INDICATIONS: CIRRHOSIS; ASCITIES TECHNIQUE: The indications, alternatives, benefits, risks, and complications of the procedure were explained to the patient. Written informed consent was obtained and placed in the chart. The abdomen and pelvis were examined sonographically, and an appropriate site was chosen for paracentesis. The skin was prepared and draped in the usual sterile fashion, and 1% lidocaine was infiltrated from the skin down through the peritoneal surface. A 19-gauge catheter-covered needle was then introduced into the peritoneal space, the catheter was advanced and the needle was withdrawn, and thereafter peritoneal fluid was withdrawn. The catheter was then removed and a dressing was applied. The fluid was discarded if the clinician did not order diagnostic testing of the fluid. COMPARISON: None. FINDINGS: Access site: Right lower quadrant Needle: One-Step centesis catheter with introducer needle. Fluid volume and description: 5000 cc of serous ascites Fluid sent for diagnostic testing: As requested Medications: 1% lidocaine for local anaesthesia. Complications: None. IMPRESSION: Successful ultrasound-guided paracentesis. Dictated by: Jatin Lai M.D. on 03/14/2021 at 17:36 Approved by: Jatin Lai M.D. on 03/14/2021 at 17:37
--- NOTE | 2021-03-14 10:15 | PC.ADMIT ---
[id number] Admission Note: Patient admitted to room 223 via stretcher from ED, ambulated to bed with SBA for safety. Belongings with patient, kept in room. Admitting RN discussed with patient POC, floor orientation including call light use, and answered any questions patient had. Bed alarm on, call light within reach. The patient,Nicky Lopez,70 y/o, was given written information regarding hospital policies, unit procedures and contact persons. Patient's smoking status: Never smoker. Vital Signs - 8 hr 03/14/21 02:30 03/14/21 03:03 03/14/21 03:30 Temperature Pulse Rate 69 76 64 Respiratory Rate 21 24 17 Blood Pressure 119/69 Pulse Oximetry 91 95 03/14/21 04:00 03/14/21 06:06 03/14/21 08:06 Temperature 97.4 F L Pulse Rate 59 L 59 L 78 Respiratory Rate 17 16 17 Blood Pressure 115/75 105/68 Pulse Oximetry 92 92 92
--- NOTE | 2021-03-14 10:59 | PC.NURSE ---
Patient escorted via wheelchair to radiology for paracentesis. Accompanied by distribution field technician. No s/s of distress.
--- NOTE | 2021-03-14 11:18 | PC.NURSE ---
Morning Lasix held per provider order due to Paracenteis.
[2021-03-14] MEDS: MAGNESIUM SULFATE 4 GM/100 ML PIGGYBACK IV (11:52)
[2021-03-14] MEDS: SODIUM CHLORIDE 0.9% 250 ML 21 ML IV (11:53)
[2021-03-14 11:59] LABS: Albumin Body Fluid < 1.0 g/dL; Total Protein Body Fluid < 2.0 g/dL
[2021-03-14 12:05] LABS: Body Fluid Color YELLOW
[2021-03-14 12:06] LABS: Body Fluid Appearance HAZY; Body Fluid Clotted? NO CLOTS PRESENT
[2021-03-14 12:22] LABS: Body Fluid Tot Nucleated Cells 251 /uL
[2021-03-14 12:23] LABS: Body Fluid Red Blood Cells 100 /uL
[2021-03-14 12:34] LABS: Mononuclear WBC Body Fluid 95 %; Polynuclear WBC Body Fluid 5 %
[2021-03-14] MEDS: INSULIN LISPRO 100 UNIT/ML 3ML VIAL SUBCUT ×3 (12:45→21:57)
[2021-03-14] MEDS: ALBUMIN HUMAN 50 GM/200 ML VIAL IV (19:00)
--- NOTE | 2021-03-14 19:35 | PC.NURSE ---
Patient is A&O x4, sitting up in bed and reports mild pain at 3/10 described as a dull aching in shoulders. Patient has been up to the restroom twice this shift with walker and standby assistance.
[2021-03-14] MEDS: SODIUM CHLORIDE 0.9% FLUSH 10 ML IV (22:03)
[2021-03-15] VITALS (10 sets, daily range): BP systolic 87–120; BP diastolic 48–71; PULSE 69–84; RESP 14–20; TEMP 36.1–36.8; O2SAT 93–98
[2021-03-15] MEDS: SODIUM CHLORIDE 0.9% 500 ML IV (04:54)
--- NOTE | 2021-03-15 06:35 | PC.NURSE ---
Pt presented with asymptomatic hypotension, 87/48 supine MAP 61, automatic cuff appropriately sized to arm. Denies any dizziness. Provider made aware, ordered 500 mL NS bolus @ 500 mL/hr. Post administration, BP measured atr 89/56 MAP 67, patient remains asymptomatic. Provider aware, no further intervention ordered.
[2021-03-15 06:38] LABS: INR 1.4 (0.9-1.3); Prothrombin Time 15.9 SECONDS (10.1-12.7)
[2021-03-15 06:40] LABS: Add Manual Diff / Slide Review NO; Basophils Absolute Auto 0 /uL (0-100); Basophils Percent Auto 0.2 % (0-2); Eosinophils Absolute Auto 0 /uL (0-450); Eosinophils Percent Auto 0.6 % (2-4); Hematocrit 25.8 % (36-46); Hemoglobin 8.2 g/dL (12.0-16.0); Lymphocytes Absolute Auto 800 /uL (1100-4500); Lymphocytes Percent Auto 17.1 % (25-40); Mean Corpuscular Hemoglobin 25.9 PG (26-34); Monocytes Absolute Auto 400 /uL (0-900); Monocytes Percent Auto 7.8 % (3-14); Neutrophils Absolute Auto 3500 /uL (1500-7000); Neutrophils Percent Auto 74.3 % (50-75); Platelet Count 104 X10^3/uL (150-400); Red Blood Cell Count 3.18 X10^6/uL (4.0-5.2); Red Cell Distribution Width 20.8 % (11.6-14.8); White Blood Cell Count 4.8 X10^3/uL (4.5-11.0)
[2021-03-15 06:43] LABS: Alanine Aminotransferase 43 IU/L (<35); Albumin 2.7 g/dL (3.5-5.0); Alkaline Phosphatase 216 U/L (38-126); Aspartate Aminotransferase 50 IU/L (14-36); Blood Urea Nitrogen 27 mg/dL (7-17); Carbon Dioxide 33 mmol/L (22-32); Chloride 107 mmol/L (98-107); Estimated Glomerular Filt Rate > 60.0 mL/min (>60); Globulin 2.7 g/dL (1.7-4.1); Glucose 126 mg/dL (80-110); HEMOLYSIS < 15 (0-50); Potassium 3.1 mmol/L (3.4-5.1); Sodium 144 mmol/L (137-145); Total Protein 5.4 g/dL (6.3-8.2)
[2021-03-15 06:45] LABS: Alanine Aminotransferase 43 IU/L (<35); Albumin 2.6 g/dL (3.5-5.0); Alkaline Phosphatase 222 U/L (38-126); Aspartate Aminotransferase 48 IU/L (14-36); Bilirubin Unconjugated 0.9 mg/dL (0.0-1.1); Globulin 2.6 g/dL (1.7-4.1); HEMOLYSIS < 15 (0-50); Total Protein 5.2 g/dL (6.3-8.2)
[2021-03-15 06:46] LABS: Magnesium 1.8 mg/dL (1.6-2.3)
[2021-03-15 06:51] LABS: NT-proBNP (BNP-Adult 18+) 2170 pg/mL (<125)
[2021-03-15 07:52] LABS: Anisocytosis 3+
--- NOTE | 2021-03-15 08:48 | DI.RAD.S_ITS ---
PROCEDURE: XR CHEST 1V INDICATIONS: cough TECHNIQUE: One view of the chest was acquired. COMPARISON: [facility], CR, XR CHEST 1V, 03/13/2021, 22:56. FINDINGS: Surgical changes and devices: None. Lungs and pleura: Lungs are edematous. No pleural effusions or pneumothorax. Mediastinum: Mediastinal contours appear normal. Heart size is globally enlarged. Bones and chest wall: No suspicious bony lesions. Overlying soft tissues appear unremarkable. IMPRESSION: Global cardiomegaly and moderate alveolar edema, consistent with chronic CHF and probable acute exacerbation. Reduced inspiratory volume. Quality of visualization of the lung bases is very limited and superimposed mild or early pneumonia also could be present. Dictated by: Kristopher Vidales M.D. on 03/15/2021 at 10:56 Approved by: Kristopher Vidales M.D. on 03/15/2021 at 10:57
[2021-03-15] MEDS: ALBUMIN HUMAN 25 GM/100 ML VIAL IV (08:54)
[2021-03-15] MEDS: POTASSIUM CHLORIDE 20 MEQ/15 ML UDC 40 MEQ PO (09:11)
[2021-03-15] MEDS: SODIUM CHLORIDE 0.9% FLUSH 10 ML IV ×2 (09:11→20:28)
[2021-03-15] MEDS: INSULIN LISPRO 100 UNIT/ML 3ML VIAL SUBCUT ×3 (09:12→16:31)
[2021-03-15] MEDS: BENZONATATE 100 MG CAPSULE PO ×2 (11:57→20:28)
[2021-03-15] MEDS: FUROSEMIDE 100 MG/10 ML VIAL 60 MG IV (12:11)
--- NOTE | 2021-03-15 12:34 | PT-IP ANOTE ---
per round meeting: PT eval on hold for today and to attempt tomorrow as pt is not appropriate for PT due to hypotension
[2021-03-15 12:44] LABS: Hematocrit 27.5 % (36-46); Hemoglobin 8.8 g/dL (12.0-16.0); Mean Corpuscular Volume 81.1 fL (80-100); Platelet Count 116 X10^3/uL (150-400); Red Blood Cell Count 3.39 X10^6/uL (4.0-5.2); Red Cell Distribution Width 21.1 % (11.6-14.8); White Blood Cell Count 5.6 X10^3/uL (4.5-11.0)
[2021-03-15 13:09] LABS: Troponin I 0.017 ng/mL (0.01-0.034)
--- NOTE | 2021-03-15 13:24 | PC.NURSE ---
Checked on Pt at 1155 and found Pt grasping the rail and very short of breath. Pt stated she felt dizzy. Bp checked with result of 120/63 hr 87, resps 14. O2 sat 86% on RA BS coarse. BG 142. Tele SR. Placed Pt on O2 and head elevated to assist with respiratory effort and notified Dr. Ochoa who came to see her right away. O2 increased to 4L and Pt given 60mg Lasix IV as well as Guajardo Catheter with Urometer placed. Pt unable to tolerate head of bed being lowered for guajardo placement but able to place guajardo anyway with immediate 200cc return. Pt states she is much more comfortable non and her breathing has eased. RT in to see Pt, Labs drawn. O2 sat 96% on 4L. Pt now eating lunch and states dizziness and difficulty breathing has abated. Pt agrees to call for assistance as needed. Bed alarm on for safety.
[2021-03-15 15:18] LABS: Lactate (Lactic Acid) 1.4 mmol/L (0.7-2.1)
--- NOTE | 2021-03-15 17:10 | P.PN_ITS ---
Subjective Subjective Date Patient Seen: 03/15/21 Time Patient Seen: 08:10 Interval history: This morning she started feeling shortness of breath that was sudden in onset. She had chest xray done which showed pulmonary edema. She was placed on oxygen 4L and given IV lasix. She has since had a good urine response and has been weaning down on oxygen. She had lower hemoglobin this morning. But denied any bleeding. No worsening abdominal pain. Exam Vital Signs (past 8 hours): - 03/15/21 12:00 03/15/21 15:45 03/15/21 15:53 Temperature 97.9 F 97.0 F L Pulse Rate 76 77 Respiratory Rate 14 16 Blood Pressure 120/63 115/68 Pulse Oximetry 96 98 96 Oxygen Delivery Method Nasal Cannula Oxygen Flow Rate 2 Narrative Exam Narrative: General: moderate respiratory distress HEENT: Normocephalic, atraumatic, mucous membranes are moist. Neck: rachea is midline, Negative for JVD Lungs: bilateral crackles throughout the entire lungs, increased work of breathing Cardio: regular rate and rhythm without murmur, rubs, or gallops, no carotid bruit, no cardiac pulsations present. Abdomen: Soft distended, generalized tenderness to left upper & lower quadrants, negative for organomegaly, bowel sound normal. No mass palpated Musculoskeletal: Muscle strength and tone are equal within normal limits. Bilateral peripheral edema pitting 2+, greater on the left over right. Full range of motion intact radial and pedal pulses are normal. Skin: Warm dry and intact without rashes, ulcerations or petechiae. Neuro: Alert and orientated x3, strength is +5/5 in all extremities, sensation to touch intact, no gross deficits noted of cranial nerves. Psych: Patient has a well-kept appearance, appropriate affect Objective Labs Result Diagrams: 03/15/21 12:12 03/15/21 06:00 Labs: Laboratory Results - last 24 hr 03/15/21 03/15/21 03/15/21 06:00 06:00 06:00 WBC 4.8 RBC 3.18 L Hgb 8.2 L Hct 25.8 L MCV 81.0 MCH 25.9 L MCHC 32.0 RDW 20.8 H Plt Count 104 L Neut % (Auto) 74.3 Lymph % (Auto) 17.1 L Calvert % (Auto) 7.8 Eos % (Auto) 0.6 L Baso % (Auto) 0.2 Neut # (Auto) 3500 Lymph # (Auto) 800 L Calvert # (Auto) 400 Eos # (Auto) 0 Baso # (Auto) 0 RBC Morphology See below Anisocytosis 3+ H PT 15.9 H INR 1.4 H Sodium 144 Potassium 3.1 L Chloride 107 Carbon Dioxide 33 H BUN 27 H Creatinine 0.60 Estimated GFR > 60.0 BUN/Creatinine Ratio 45.0 H Glucose 126 H Lactate Calcium 9.0 Magnesium Total Bilirubin 1.0 Conjugated Bilirubin Unconjugated Bilirubin AST 50 H ALT 43 H Alkaline Phosphatase 216 H Troponin I NT-Pro-B Natriuret Pep 2170 H Total Protein 5.4 L Albumin 2.7 L Globulin 2.7 Albumin/Globulin Ratio 1.0 Blood Type Antibody Screen 03/15/21 03/15/21 03/15/21 06:00 06:00 09:09 WBC RBC Hgb Hct MCV MCH MCHC RDW Plt Count Neut % (Auto) Lymph % (Auto) Calvert % (Auto) Eos % (Auto) Baso % (Auto) Neut # (Auto) Lymph # (Auto) Calvert # (Auto) Eos # (Auto) Baso # (Auto) RBC Morphology Anisocytosis PT INR Sodium Potassium Chloride Carbon Dioxide BUN Creatinine Estimated GFR BUN/Creatinine Ratio Glucose Lactate Calcium Magnesium 1.8 Total Bilirubin 1.0 Conjugated Bilirubin 0.0 Unconjugated Bilirubin 0.9 AST 48 H ALT 43 H Alkaline Phosphatase 222 H Troponin I NT-Pro-B Natriuret Pep Total Protein 5.2 L Albumin 2.6 L Globulin 2.6 Albumin/Globulin Ratio 1.0 Blood Type O Positive Antibody Screen Negative 03/15/21 03/15/21 03/15/21 12:12 12:12 12:12 WBC 5.6 RBC 3.39 L Hgb 8.8 L Hct 27.5 L MCV 81.1 MCH 26.0 MCHC 32.0 RDW 21.1 H Plt Count 116 L Neut % (Auto) Lymph % (Auto) Calvert % (Auto) Eos % (Auto) Baso % (Auto) Neut # (Auto) Lymph # (Auto) Calvert # (Auto) Eos # (Auto) Baso # (Auto) RBC Morphology Anisocytosis PT INR Sodium Potassium Chloride Carbon Dioxide BUN Creatinine Estimated GFR BUN/Creatinine Ratio Glucose Lactate 1.4 Calcium Magnesium Total Bilirubin Conjugated Bilirubin Unconjugated Bilirubin AST ALT Alkaline Phosphatase Troponin I 0.017 NT-Pro-B Natriuret Pep Total Protein Albumin Globulin Albumin/Globulin Ratio Blood Type Antibody Screen PFSH Medical History Acquired hypothyroidism Essential hypertension Headache History of colon polyps Hyperlipidemia Mumps Non-insulin dependent type 2 diabetes mellitus Osteoarthritis Psoriasis Surgical History Anesthesia History of colonoscopy History of hysterectomy Status post rotator cuff repair Family History Father Cancer Mother Cancer Social History marital status: household members: spouse lives independently: Yes Smoking Status: Never smoker alcohol intake: never Assessment & Plan Assessment & Plan narrative: Ms. Lopez is a 70W with PMH cirrhosis who presents with decompensated cirrhosis with ascites. 1. Decompensated cirrhosis with ascites, and anasarca -grossly volume overloaded on initial presentation -had only been on oral lasix as an outpatient -per outpatient workup she had negative autoimmune, hepatitis serologies, ceruloplasmin, negative for hemochromatosis, no EtOH -cirrhsois presume to due fatty liver -underwent para with 5L removed on 03/14 -studies negative for any infection -keep on fluid restriction, low sodium diet -got IV fluid overnight for low blood pressure, then had pulmonary edema, avoid normal saline -diuresed well with lasix IV 60mg -follow up BMP PM lytes -consider redose lasix in PM -ECHO showed preserved EF, no evidence of CHF 2. Anemia -drop from hemoglobin of 10.1 to 8.2 -no evidence of GI bleeding -but since stabilized at 8.8 -ordered for CT abdomen to evaluate for possible hematoma -ordered type and screen 3. Thrombocytopenia -mild at 116 -secondary to cirrhosis -can continue to trend, no indication for transfusion now 4. Diabetes, non insulin dependent Type 2, chronic, not present on admission, well controlled -patient presents with glucose of 94 on initial labs. - Hold patient metformin. -ordered fingerstick blood sugars ACHS and will cover with low range c orrectional insulin. -will obtain hemoglobin A1c. 5. Hypertension essential, chronic, not present on admission, well controlled -patient presents with a blood pressure on admit 119/69 -will hold patient's losartan and spironolactone until pressure improves. 6. Hypothyroidism, chronic, stable -will continue patient's thyroid supplementation with 7. Psoriasis, chronic, stable -patient is on Humira therapy currently between episodic treatments. 8. Hyperlipidemia, chronic, stable -will continue atorvastatin when patient is again taking oral medications. Code status: Full code Surrogate decisionmaker: patient designates her COVID PCR: Negative VTE prophylaxis: Bilateral SCDs will wait on prophylaxis until bleed is ruled out with consistent H/H and paracentesis.
[2021-03-15 19:17] LABS: BUN Creatinine Ratio 40.7 (6-22); Blood Urea Nitrogen 24 mg/dL (7-17); Calcium 9.2 mg/dL (8.4-10.2); Carbon Dioxide 34 mmol/L (22-32); Chloride 104 mmol/L (98-107); Estimated Glomerular Filt Rate > 60.0 mL/min (>60); Glucose 151 mg/dL (80-110); HEMOLYSIS < 15 (0-50); Magnesium 1.7 mg/dL (1.6-2.3); Potassium 3.4 mmol/L (3.4-5.1); Sodium 144 mmol/L (137-145)
--- NOTE | 2021-03-15 19:31 | PC.NURSE ---
Patient has been resting in bed most of the shift. Crackles heard throughout lungs, patient on 2L o2 sats mid 90s. Patient states her breathing is better then on early day shift. Patient has been A&O, calm and cooperative.
[2021-03-16] VITALS (13 sets, daily range): BP systolic 112–141; BP diastolic 63–85; PULSE 66–78; RESP 16–20; TEMP 36.1–36.5; O2SAT 93–100
[2021-03-16 05:48] LABS: INR 1.4 (0.9-1.3); Prothrombin Time 15.5 SECONDS (10.1-12.7)
[2021-03-16 05:49] LABS: Basophils Absolute Auto 0 /uL (0-100); Basophils Percent Auto 0.2 % (0-2); Eosinophils Absolute Auto 0 /uL (0-450); Hematocrit 26.1 % (36-46); Hemoglobin 8.4 g/dL (12.0-16.0); Lymphocytes Absolute Auto 1000 /uL (1100-4500); Mean Corpuscular HGB Conc 32.1 % (30-36); Mean Corpuscular Volume 80.8 fL (80-100); Monocytes Absolute Auto 300 /uL (0-900); Monocytes Percent Auto 6.9 % (3-14); Neutrophils Absolute Auto 3300 /uL (1500-7000); Neutrophils Percent Auto 70.9 % (50-75); Platelet Count 101 X10^3/uL (150-400); Red Blood Cell Count 3.23 X10^6/uL (4.0-5.2); White Blood Cell Count 4.6 X10^3/uL (4.5-11.0)
[2021-03-16 05:50] LABS: Add Manual Diff / Slide Review SLIDE REVIEW
[2021-03-16 05:52] LABS: Magnesium 1.7 mg/dL (1.6-2.3)
[2021-03-16 05:56] LABS: Alanine Aminotransferase 48 IU/L (<35); Albumin 2.7 g/dL (3.5-5.0); Alkaline Phosphatase 232 U/L (38-126); Aspartate Aminotransferase 59 IU/L (14-36); BUN Creatinine Ratio 39.7 (6-22); Bilirubin Total 0.9 mg/dL (0.2-1.3); Blood Urea Nitrogen 23 mg/dL (7-17); Calcium 8.8 mg/dL (8.4-10.2); Carbon Dioxide 35 mmol/L (22-32); Chloride 106 mmol/L (98-107); Estimated Glomerular Filt Rate > 60.0 mL/min (>60); Globulin 2.7 g/dL (1.7-4.1); Glucose 120 mg/dL (80-110); HEMOLYSIS < 15 (0-50); Potassium 3.3 mmol/L (3.4-5.1); Sodium 143 mmol/L (137-145); Total Protein 5.4 g/dL (6.3-8.2)
[2021-03-16] MEDS: LEVOTHYROXINE 100 MCG TABLET PO (06:24)
[2021-03-16 06:25] LABS: Anisocytosis 3+
[2021-03-16] MEDS: MAGNESIUM OXIDE 400 MG TABLET PO ×2 (08:44→21:15)
[2021-03-16] MEDS: FUROSEMIDE 40 MG/4 ML VIAL IV (08:44)
[2021-03-16] MEDS: BENZONATATE 100 MG CAPSULE PO ×2 (08:44→21:17)
[2021-03-16] MEDS: POTASSIUM CHLORIDE 20 MEQ/15 ML UDC 40 MEQ PO (08:45)
[2021-03-16] MEDS: SODIUM CHLORIDE 0.9% FLUSH 10 ML IV ×2 (08:45→21:16)
--- NOTE | 2021-03-16 08:49 | DI.CT.S_ITS ---
PROCEDURE: CT ABDOMEN PELVIS WO CON INDICATIONS: Not documented in PACS field. Additional history: Difficulty breathing. TECHNIQUE: Noncontrast 5 mm thick sections acquired from the diaphragms to the symphysis. 5 mm thick coronal and sagittal reformats were then performed. For radiation dose reduction, the following was used: automated exposure control, adjustment of mA and/or kV according to patient size. COMPARISON: [facility], CT, CT ABDOMEN PELVIS WO CON, 11/13/2020, 23:18. FINDINGS: Image quality: Fair. Difficult positioning. Lung bases: Infiltrates at the lung bases bilaterally. Heart size is enlarged. Pulmonary artery is enlarged. This could be seen in pulmonary arterial hypertension. Small pericardial effusion. No significant pleural effusion. Urinary system: Both kidneys are normal in size. Left renal pelvis calculus measuring 1.4 cm, (4/47). Suspect punctate nonobstructing calculus in the mid right kidney. No hydronephrosis. Both ureters appear non-dilated throughout their expected courses. Bladder is decompressed with Broderick catheter; no calcified bladder stones. Other solid organs: Shrunken nodular liver morphology. Suspect cirrhosis. Gallbladder is decompressed. Question of trace gallstone. Pancreas is normal in contours. Spleen is within normal limits in size. Small right adrenal nodule measuring 1.4 cm and -3 Hounsfield units, (2/39), consistent with benign adenoma. Additional right adrenal nodule measuring 3.2 x 3 cm, and 23 Hounsfield units (2/44), previously 3 x 2.8 cm and not felt to be significantly changed and measured 9 Hounsfield units. Peritoneum and bowel: Unenhanced bowel loops demonstrate normal wall thickness and caliber. Diverticulosis. Colonic wall may be mildly thickened. This could be seen in portal enteropathy. Large volume of low-density ascites, new. No pneumoperitoneum. Nodes and vessels: No retroperitoneal or mesenteric adenopathy by size criteria. Aorta and inferior vena cava are normal in caliber. Abdominal wall: No ventral hernias. Pelvis: No free pelvic fluid. No inguinal hernias or adenopathy. Uterus is absent. Bones: No suspicious bony lesions. Extensive DDD. No vertebral body compression fractures. IMPRESSION: 1. Cirrhotic liver morphology. Large volume of ascites, new. 2. Anasarca. 3. Left renal pelvis calculus measuring 1.4 cm. No hydronephrosis. 4. Bibasilar infiltrates. This could represent infectious/inflammatory etiology or atelectasis. 5. Right adrenal nodule measuring 3.2 cm. Most likely a benign adenoma but measures greater than 10 Hounsfield units on this exam. Recommend attention on follow-up scans. Additional the small right adrenal adenoma measuring 1.4 cm. 6. Cardiomegaly. A small pericardial effusion. Dictated by: Zenon Lopez M.D. on 03/16/2021 at 9:20 Approved by: Zenon Lopez M.D. on 03/16/2021 at 9:43
[2021-03-16] MEDS: INSULIN LISPRO 100 UNIT/ML 3ML VIAL SUBCUT ×3 (08:55→17:02)
[2021-03-16] MEDS: POTASSIUM CHLORIDE 20 MEQ TAB 40 MEQ PO (09:13)
--- NOTE | 2021-03-16 11:45 | PT.IIE ---
Current Diagnoses Heart failure, unspecified (03/14/21) Unspecified cirrhosis of liver (03/14/21) Surgical History (Last Reviewed 03/14/21 @ 06:04 by BRIAN Olivera) Anesthesia History of colonoscopy History of hysterectomy Status post rotator cuff repair Medical History (Last Reviewed 03/14/21 @ 06:04 by BRIAN Olivera) Acquired hypothyroidism Essential hypertension Headache History of colon polyps Hyperlipidemia Mumps Non-insulin dependent type 2 diabetes mellitus Osteoarthritis Psoriasis Physical Therapy Inpatient Evaluation/Re-Eval M1 PT/OT-IP Prior Functional Status Start: 03/16/21 12:47 Freq: NEEDED Status: Active Protocol: Document 03/16/21 11:45 AB (Rec: 03/16/21 12:58 AB [id number]) Medical Review Prior Functional Status Medical History Reviewed Yes Communication able to make needs known Mobility and Gait pt stated that she is modified independent with all mobilities; ambulated using SPC indoors, FWW for outdoor mobility but occasionally uses a SPC Social History Household Members spouse Living Arrangements House Number of Floors (Floors) One Floor Number of Stairs To Enter/Railing? 3 steps L rail to enter Home Environment Standard Height Toilet,Tub/ Shower Home Equipment Raised Toilet Seat Without Armrests,Shower Seat without Backrest,Hand Held Shower Employment Status Retired M2 PT-IP Current Condition Start: 03/16/21 12:47 Freq: NEEDED Status: Active Protocol: Document 03/16/21 11:45 AB (Rec: 03/16/21 12:58 AB [email or web address]) Physical Therapy Current Condition Current Condition Evaluation Date 03/16/21 Treatment Diagnosis CHF; difficulty in walking Onset Date 03/14/21 Precautions Other Precautions O2 sat M3 PT-IP Subjective Start: 03/16/21 12:47 Freq: NEEDED Status: Active Protocol: Document 03/16/21 11:45 AB (Rec: 03/16/21 12:58 AB [email or web address]) Subjective Physical Therapy Visit Type Type Initial Evaluation Visit Start Time 11:45 Visit Stop Time 12:10 Total Visit Minutes 25 Number of BASIN FINISH OPERATOR TIG WELDER Visits 0 Physical Therapy Visit Comments Patient Comments pt is agreeable to do PT Therapy Pain Assessment Pain Present Pain Present Denied Pain M4 PT-IP Mobility and Gait Start: 03/16/21 12:47 Freq: NEEDED Status: Active Protocol: Document 03/16/21 11:45 AB (Rec: 03/16/21 12:58 AB [id number]) PT-Bed Mobility Assessment Supine to Sit Supine to Sit Minimal Assistance,Moderate Assistance,1 Person Assistance ,Head of Bed Elevated,Bedrails PT-Transfer Assessment Sit to and From Stand Sit to and from Stand Contact Guard Assistance,1 Person Assistance,Use of Upper Extremities Equipment Transfer Assistive Device Gait Belt,Front Wheeled Walker Orthotic/Prosthetic Devices or Brace: No Transfers Transfer Destination Chair Transfer Technique ambulated using FWW Transfer Ability Level of Assist Contact Guard Assistance,1 Person Assistance,Use of Upper Extremities Comments Mobility Comments completed supine to sit min to mod A and cues for techniques . pt used bedrail to assist. pt was able to sit on EOB SBa . completed sit to stand CGA and ambulated in room using FWW ~ 30 ft CGA. pt agreed to sit on chair. positioned on chair. call light and table placed within reach. O2 sat during tx session: 98- 99% with 2L/min O2 Gait Assessment Gait Gait Assistance Required: Contact Guard Assist Distance (Feet) 30 Able to Maintain Weight Bearing Status Yes During Gait Assistive Devices Assistive Device Gait Belt,Front Wheeled Walker Orthotic/Prosthetic Devices or Brace: No Gait Deviations General Gait Pattern Decreased Stride Length, Decreased Feet Clearance, Flexed Trunk Factors Limiting Gait Function Factors Limiting Gait Function Decreased Activity Tolerance, Decreased Strength,Poor Balance,Respiratory Distress Comments Gait Comments pls refer to mobility section for details PT-Balance Assessment Sitting Balance and Reactions Static Sitting Balance Ability Good Dynamic Sitting Balance Ability Good Standing Balance and Reactions Static Standing Balance Ability Fair Dynamic Standing Balance Ability Fair Device Used FWW M5 PT-IP Objective Assessments Start: 03/16/21 12:47 Freq: NEEDED Status: Active Protocol: Document 03/16/21 11:45 AB (Rec: 03/16/21 12:58 AB [id number]) Orientation Orientation/Cognition Level of Alertness Alert Orientation Name,Situation Language Function Ability No Deficits Noted Safety Awareness Understands Safety Issues Memory Description No Deficits Noted Gross Range of Motion Lower Extremity ROM Assessment Within Functional Limits Strength Comments Strength Comments LLE: 4-/5 RLE 3+/5 Coordination Assessment Gross Coordination Gross Coordination WNL Muscle Tone Muscle Tone WNL Yes M6 PT-IP Treatment Start: 03/16/21 12:47 Freq: NEEDED Status: Active Protocol: Document 03/16/21 11:45 AB (Rec: 03/16/21 12:58 AB [id number]) Physical Therapy Treatment Education Education Provided Safety M7 PT-IP Assessment and Plan Start: 03/16/21 12:47 Freq: NEEDED Status: Active Protocol: Document 03/16/21 11:45 AB (Rec: 03/16/21 12:58 AB [email or web address]) PT Summary Assessment and Plan Potential Rehabilitation Potential Good Status of Condition at Evaluation Stable Summary Impairments Pain,ROM,Strength,Balance, Coordination,Sensation,Bed Mobility,Transfers,Gait, Activity Tolerance Assessment Summary pt requiring min to mod A for bed mobility, CGA for transfer and ambulation using FWW but has decrease activity tolerance affecting mobility level. pt plans to go home and spouse to assist her. will continue to assess progress. Goals Bed Mobility Goal Independent Transfer Goal Independent,Front Wheeled Walker Gait Goal Independent,Front Wheel Walker Gait Distance 150 Other Goals improve ambulation using SPC 100 ft SBA up/down 3 steps L rail ascending SBA Days to Meet Goals 10 Frequency of Treatment Frequency Of Treatment Once a Day Treatment Plan Physical Therapy Treatment Plan Bed Mobility Training,Transfer Training,Gait Training, Therapeutic Exercise,Balance Retraining,Discharge Planning, Hot or Cold Pack,Neuromuscular Re-ed,Coordination Retraining Precautions Other Precautions O2 sat Recommendations To Nursing Amount of Assist Needed 1 Person Assist Discharge Recommendations PT Discharge Recommendations Home with Assistance,Home Health Transportation Needs at Discharge Private Vehicle
--- NOTE | 2021-03-16 15:24 | CM.IDA ---
Initial DCP Assessment Note Patient is a 70 yo female, resident of [place]. Patient w/significant medical history, presents w/weakness and inability to walk. Diagnosed with decompensated cirrhosis with ascites, anemia, Thrombocytopenia an acute resp. failure. PMH includes Diabetes, HTN, Psoriasis and Hyperlipidemia PCP: Trever Berger Payer: BRANDIN Flowers/HERBERTH Met w/patient to introduce role. Patient lives w/spouse, who is working timers inspector for a local [employer] this summer. Patient/spouse have a son, VIDAL, that lives in [place]. At baseline, patient able to accomplish most activities indp in her home w/cane but does require FWW outside of her home and tires easily. Patient explains that once she gets going I'm usually okay. Spouse assists w/chores, cooking, and higher ADLs as needed. Patient plans to return home w/her spouse to assist, discussed home health care (?) and patient unsure if she wants this, doesn't know if she will need. Reviewed chart, PT recommending home w/spouse and HH Plan: DC expected to be home, w/spouse to assist and HH if patient will agree, once medically stable AKASH Villaseñor Discharge Planning/Care Management CM Discharge Assessment Start: 03/16/21 15:21 Freq: Status: Active Protocol: Document 03/16/21 15:21 MOOSE (Rec: 03/16/21 15:24 MOOSE [email or web address]) Discharge Planning Assessment Assigned Rebrander AKASH Tom DPOA/Assigned Designee Name Crow Lopez, spouse Contact Information [phone] Advance Directives? No Advance Directives on File No History Provided By Patient,Medical Record Prior Living Arrangements House Household Members spouse Type of transporation used prior to Relies on Others admit Independent with ADL's Yes: Indoors, low activity tolerance outside Is patient alert and oriented? Yes Needs Assistance With Meal Prep,Managing Medications ,Home Chores / Shopping DME Already Rented / Owned FWW / Walker,Cane Patient/Family Preference Home with Home Health Discharge Plan Home Transportation Arrangement Spouse Additional Comment Possibly HH, patient unsure she will need Whiteboard Updated in Patient Room with Yes name and ext. # of Rebrander
--- NOTE | 2021-03-16 16:58 | PM.PN.1 ---
Subjective Subjective Date Patient Seen: 03/16/21 Time Patient Seen: 07:59 Interval history: This morning patient became short of breath after CT scan, dropped her O2 sats to 80s off oxygen, and was placed back on. Yesterday AM she had her sats in the 80s as well before improving with diuresis. When I see her she is feeling improved on the oxygen. Her abdomen is distended but has no pain. Exam Vital Signs (past 8 hours): - 03/16/21 09:38 03/16/21 12:00 03/16/21 12:43 Temperature 97.4 F L Pulse Rate 66 67 Respiratory Rate 18 18 Blood Pressure 141/85 H Pulse Oximetry 93 99 100 03/16/21 12:45 03/16/21 13:13 03/16/21 16:15 Temperature 97.4 F L Pulse Rate 72 Respiratory Rate 16 Blood Pressure 120/70 Pulse Oximetry 95 94 94 03/16/21 16:49 Temperature Pulse Rate Respiratory Rate Blood Pressure Pulse Oximetry 94 Oxygen Delivery Method Room Air Oxygen Flow Rate 0 Narrative Exam Narrative: General: mild respiratory distress HEENT: Normocephalic, atraumatic, mucous membranes are moist. Neck: rachea is midline, Negative for JVD Lungs: bilateral crackles throughout the entire lungs, increased work of breathing Cardio: regular rate and rhythm without murmur, rubs, or gallops, no carotid bruit, no cardiac pulsations present. Abdomen: Soft distended, generalized tenderness to left upper & lower quadrants, negative for organomegaly, bowel sound normal. No mass palpated Musculoskeletal: Muscle strength and tone are equal within normal limits. Bilateral peripheral edema pitting 2+, greater on the left over right. Full range of motion intact radial and pedal pulses are normal. Skin: Warm dry and intact without rashes, ulcerations or petechiae. Neuro: Alert and orientated x3, strength is +5/5 in all extremities, sensation to touch intact, no gross deficits noted of cranial nerves. Psych: Patient has a well-kept appearance, appropriate affect Objective Labs Result Diagrams: 03/16/21 05:25 03/16/21 05:25 Labs: Laboratory Results - last 24 hr 03/15/21 03/15/21 03/16/21 18:39 18:39 05:25 WBC 4.6 RBC 3.23 L Hgb 8.4 L Hct 26.1 L MCV 80.8 MCH 26.0 MCHC 32.1 RDW 21.0 H Plt Count 101 L Neut % (Auto) 70.9 Lymph % (Auto) 21.0 L [place] % (Auto) 6.9 Eos % (Auto) 1.0 L Baso % (Auto) 0.2 Neut # (Auto) 3300 Lymph # (Auto) 1000 L [place] # (Auto) 300 Eos # (Auto) 0 Baso # (Auto) 0 RBC Morphology See below Anisocytosis 3+ H PT INR Sodium 144 Potassium 3.4 Chloride 104 Carbon Dioxide 34 H BUN 24 H Creatinine 0.59 Estimated GFR > 60.0 BUN/Creatinine Ratio 40.7 H Glucose 151 H Calcium 9.2 Magnesium 1.7 Total Bilirubin AST ALT Alkaline Phosphatase Total Protein Albumin Globulin Albumin/Globulin Ratio 03/16/21 03/16/21 03/16/21 05:25 05:25 05:25 WBC RBC Hgb Hct MCV MCH MCHC RDW Plt Count Neut % (Auto) Lymph % (Auto) [place] % (Auto) Eos % (Auto) Baso % (Auto) Neut # (Auto) Lymph # (Auto) [place] # (Auto) Eos # (Auto) Baso # (Auto) RBC Morphology Anisocytosis PT 15.5 H INR 1.4 H Sodium 143 Potassium 3.3 L Chloride 106 Carbon Dioxide 35 H BUN 23 H Creatinine 0.58 Estimated GFR > 60.0 BUN/Creatinine Ratio 39.7 H Glucose 120 H Calcium 8.8 Magnesium 1.7 Total Bilirubin 0.9 AST 59 H ALT 48 H Alkaline Phosphatase 232 H Total Protein 5.4 L Albumin 2.7 L Globulin 2.7 Albumin/Globulin Ratio 1.0 PFSH Medical History Acquired hypothyroidism Essential hypertension Headache History of colon polyps Hyperlipidemia Mumps Non-insulin dependent type 2 diabetes mellitus Osteoarthritis Psoriasis Surgical History Anesthesia History of colonoscopy History of hysterectomy Status post rotator cuff repair Family History Father Cancer Mother Cancer Social History marital status: household members: spouse lives independently: Yes Smoking Status: Never smoker alcohol intake: never Assessment & Plan Assessment & Plan narrative: Ms. Lopez is a 70W with PMH cirrhosis who presents with decompensated cirrhosis with ascites. 1. Decompensated cirrhosis with ascites, and anasarca -grossly volume overloaded on initial presentation -had only been on oral lasix as an outpatient -per outpatient workup she had negative autoimmune, hepatitis serologies, ceruloplasmin, negative for hemochromatosis, no EtOH -cirrhsois presume to due fatty liver -underwent para with 5L removed on 03/14 -studies negative for any infection -keep on fluid restriction, low sodium diet -got IV fluid overnight for low blood pressure, then had pulmonary edema, avoid normal saline -diuresed well with lasix IV 60mg -follow up BMP PM lytes -consider redose lasix in PM -ECHO showed preserved EF, no evidence of CHF 2. Acute respiratory failure, dropped O2 sats to 80s on 03/15, 03/16 while off oxygen -secondary to volume overload from cirrhosis -has been diuresing very well on lasix -continue IV lasix -avoid saline fluid -no evidence of CHF on exam 3. Anemia -drop from hemoglobin of 10.1 to 8.2 after paracentesis -no evidence of GI bleeding -but since stabilized in the 8s -ordered for CT abdomen to evaluate for possible hematoma, no evidence of hematoma -ordered type and screen 3. Thrombocytopenia -mild at 116 -secondary to cirrhosis -can continue to trend, no indication for transfusion now 4. Diabetes, non insulin dependent Type 2, chronic, not present on admission, well controlled -patient presents with glucose of 94 on initial labs. - Hold patient metformin. -ordered fingerstick blood sugars ACHS and will cover with low range correctional insulin. -will obtain hemoglobin A1c. 5. Hypertension essential, chronic, not present on admission, well controlled -patient presents with a blood pressure on admit 119/69 -will hold patient's losartan and spironolactone until pressure improves. 6. Hypothyroidism, chronic, stable -will continue patient's thyroid supplementation with 7. Psoriasis, chronic, stable -patient is on Humira therapy currently between episodic treatments. 8. Hyperlipidemia, chronic, stable -will continue atorvastatin when patient is again taking oral medications. 9. Incidental R adrenal nodule of 3.2 cm -most likely benign per CT scan read, however recommend regular follow up to make sure no changes Code status: Full code Surrogate decisionmaker: patient designates her COVID PCR: Negative VTE prophylaxis: Bilateral SCDs will wait on prophylaxis until bleed is ruled out with consistent H/H and paracentesis.
[2021-03-16 21:44] LABS: Add Manual Diff / Slide Review NO; Basophils Absolute Auto 0 /uL (0-100); Basophils Percent Auto 0.5 % (0-2); Eosinophils Absolute Auto 0 /uL (0-450); Eosinophils Percent Auto 0.7 % (2-4); Hemoglobin 9.6 g/dL (12.0-16.0); Lymphocytes Absolute Auto 1000 /uL (1100-4500); Lymphocytes Percent Auto 17.5 % (25-40); Mean Corpuscular HGB Conc 32.1 % (30-36); Mean Corpuscular Hemoglobin 26.1 PG (26-34); Mean Corpuscular Volume 81.3 fL (80-100); Monocytes Absolute Auto 400 /uL (0-900); Monocytes Percent Auto 6.7 % (3-14); Neutrophils Absolute Auto 4200 /uL (1500-7000); Neutrophils Percent Auto 74.6 % (50-75); Platelet Count 121 X10^3/uL (150-400); Red Blood Cell Count 3.69 X10^6/uL (4.0-5.2); Red Cell Distribution Width 21.3 % (11.6-14.8); White Blood Cell Count 5.7 X10^3/uL (4.5-11.0)
[2021-03-16 21:50] LABS: Alanine Aminotransferase 57 IU/L (<35); Albumin 3.1 g/dL (3.5-5.0); Alkaline Phosphatase 286 U/L (38-126); Aspartate Aminotransferase 73 IU/L (14-36); BUN Creatinine Ratio 46.4 (6-22); Blood Urea Nitrogen 26 mg/dL (7-17); Calcium 8.9 mg/dL (8.4-10.2); Carbon Dioxide 34 mmol/L (22-32); Chloride 106 mmol/L (98-107); Estimated Glomerular Filt Rate > 60.0 mL/min (>60); Glucose 153 mg/dL (80-110); HEMOLYSIS 25 (0-50); Magnesium 1.7 mg/dL (1.6-2.3); Potassium 3.9 mmol/L (3.4-5.1); Sodium 143 mmol/L (137-145); Total Protein 6.1 g/dL (6.3-8.2)
[2021-03-16 22:27] LABS: Anisocytosis 1+; Poikilocytosis 1+
[2021-03-16] MEDS: FUROSEMIDE 100 MG/10 ML VIAL 60 MG IV (23:59)
[2021-03-17] MEDS: SODIUM CHLORIDE 0.9% 250 ML 21 ML IV
[2021-03-17] MEDS: SODIUM CHLORIDE 0.9% FLUSH 10 ML IV ×2 (00:02→08:44)
[2021-03-17 00:28] VITALS: BP 123/69; PULSE 72; RESP 16; TEMP 36.3; O2SAT 94
--- NOTE | 2021-03-17 02:18 | PC.NURSE ---
patient is alert and oriented. Breath sounds CTA w/RA sat of 94%. States still SOB with activity but improved from admission; denies SOB at rest. HR irregular w/telemetry reading of SR w/occasional PVC's. Denies nausea. BT present and abdomen is soft. Indwelling catheter is patent; urine is clear alvin. Is able to turn herself in bed. Due to weakness needing walker and SBA when out of bed. Is wearing bilateral calf SCD's. Denies pain. 2+ bilateral LE edema. Continues on fluid restriction. Fall risk score is high and bed alarm is activated.
[2021-03-17 05:30] VITALS: BP 118/71; PULSE 77; RESP 17; TEMP 36.4; O2SAT 94
[2021-03-17] MEDS: LEVOTHYROXINE 100 MCG TABLET PO (05:31)
[2021-03-17 05:56] LABS: Hematocrit 30.4 % (36-46); Hemoglobin 9.7 g/dL (12.0-16.0); Mean Corpuscular HGB Conc 31.9 % (30-36); Mean Corpuscular Hemoglobin 25.9 PG (26-34); Mean Corpuscular Volume 81.1 fL (80-100); Platelet Count 119 X10^3/uL (150-400); Red Blood Cell Count 3.75 X10^6/uL (4.0-5.2); Red Cell Distribution Width 20.7 % (11.6-14.8); White Blood Cell Count 4.9 X10^3/uL (4.5-11.0)
[2021-03-17 06:17] LABS: Blood Urea Nitrogen 23 mg/dL (7-17); Calcium 9.1 mg/dL (8.4-10.2); Carbon Dioxide 36 mmol/L (22-32); Chloride 103 mmol/L (98-107); Estimated Glomerular Filt Rate > 60.0 mL/min (>60); Glucose 127 mg/dL (80-110); HEMOLYSIS < 15 (0-50); Magnesium 1.6 mg/dL (1.6-2.3); Potassium 3.5 mmol/L (3.4-5.1); Sodium 143 mmol/L (137-145)
--- NOTE | 2021-03-17 08:19 | PM.DS.1 ---
History of Present Illness History of Present Illness Chief complaint: UNABLE TO WALK Narrative: H and P per Karma Diaz: Patient is a pleasant 70-year-old female Nicky Lopez who presents to the ED with increasing weakness since November. She states today she has been unable to get up off the toilet. She states that she has just been slowly having decreasing strength which she describes as generalized weakness. Patient complains of worsening abdominal pain and distension since November, pain is a 1/10 at this time constant, dull does not change with intensity patient denies nausea or vomiting does note diarrhea couple times a day every couple days for the past several months, she complains of positive chills and worsening shortness of breath denies chest pain. She has noted she has had some increasing bloating and swelling of her lower extremities, and notes that the discoloration to her toes is new. She has not appreciate any melena or hematochezia. She states that today her legs mildly worsened normal in terms of swelling. They are not her worst but not at her normal. She has had no fevers. She denies any chest pain or pressure. She has had shortness of breath over the last few months but with no acute worsening over the last few days or weeks. Patient was hospitalized in early November 2020 for cirrhosis and variceal bleeding noted on EGD, hypertension, dyslipidemia diabetes type 2, psoriasis, hypothyroidism and colon polyps. Patient's vitals upon admit temp 98.7?, BP 119/69, HR 59, R 17, O2 saturation 90% on room air. Labs HGB 11.2, HCT 35.6, BUN 26, BUN creatinine ratio 39.4, bili 1.9, AST 80, ALT 66, alk-phos 356, bili/CR T ratio 39.4, PT 14.1, BNP 1430, CK-2: 2.59, normal troponin. EKG: Sinus rhythm with occasional PVCs rate 68, Q-waves in lead 3. Without ST or T-wave changes. CXR:Left partial Base atelectasis with possible minimal infusion. There may be minimal bilateral pleural effusions. Cardiomegaly. ABD U/S:cirrhotic changes with some moderate abdominal ascites gallbladder wall thickening. Patient to be admitted for weakness and CHF. Discharge Providers Provider Date of admission: 03/14/21 08:01 Discharge Date: 03/17/21 Primary care physician: Trever Berger MD Consults: 03/14/21 20:32 Consult to Physical Therapy Evaluate & Treat Comment: Physician Instructions: Evaluate and Treat 03/15/21 14:10 Consult to Dietitian, Adult Routine Comment: Reason For Exam: poor nutrition, muscle wasting Discharge provider: Grupo Ochoa MD Summary Hospital Course Discharge Diagnosis: 1. Decompensated cirrhosis with ascites 2. Acute respiratory failure with O2 sats in the 80s on 03/15, 03/16 3. Anemia 4. Thrombocytopenia 5. Diabetes 6. Hypertension 7. Psoriasis 8. Hyperlipidemia 9. Incidental adrenal nodule Hospital Course: Ms. Lopez came in with volume overload. She had previously to this hospitalization been on lasix 40m daily. No spironolactone. She did initially get 5L para performed with no evidence of SBP. She did have a drop in her hemoglobin after the paracentesis and underwent CT scan which showed no hematoma. She did require oxygen for being fluid overloaded, but diuresed very well to IV lasix. She had an ECHO that showed a preserved EF. On day of discharge she was feeling stronger and better able to breath. She was discharged on spironolactone 100mg and lasix 40mg daily and she was told to follow up closely with her PCP and gastroenterology and to monitor her weight and fluid retention closely. She did have incidental R adrenal nodule of 3.2 cm that was most likely benign per CT scan read, however recommend regular follow up to make sure no changes Exam Vital Signs (past 8 hours): Oxygen Delivery Method Room Air Oxygen Flow Rate 0 Narrative Exam Narrative: General: mild respiratory distress HEENT: Normocephalic, atraumatic, mucous membranes are moist. Neck: rachea is midline, Negative for JVD Lungs: bilateral crackles throughout the entire lungs, increased work of breathing Cardio: regular rate and rhythm without murmur, rubs, or gallops, no carotid bruit, no cardiac pulsations present. Abdomen: Soft distended, generalized tenderness to left upper & lower quadrants, negative for organomegaly, bowel sound normal. No mass palpated Musculoskeletal: Muscle strength and tone are equal within normal limits. Bilateral peripheral edema pitting 2+, greater on the left over right. Full range of motion intact radial and pedal pulses are normal. Skin: Warm dry and intact without rashes, ulcerations or petechiae. Neuro: Alert and orientated x3, strength is +5/5 in all extremities, sensation to touch intact, no gross deficits noted of cranial nerves. Psych: Patient has a well-kept appearance, appropriate affect Objective Labs Result Diagrams: 03/17/21 05:27 03/17/21 05:27 Labs: Laboratory Results - last 24 hr 03/17/21 03/17/21 05:27 05:27 WBC 4.9 RBC 3.75 L Hgb 9.7 L Hct 30.4 L MCV 81.1 MCH 25.9 L MCHC 31.9 RDW 20.7 H Plt Count 119 L Sodium 143 Potassium 3.5 Chloride 103 Carbon Dioxide 36 H BUN 23 H Creatinine 0.59 Estimated GFR > 60.0 BUN/Creatinine Ratio 39.0 H Glucose 127 H Calcium 9.1 Magnesium 1.6 PFSH Medical History Acquired hypothyroidism Essential hypertension Headache History of colon polyps Hyperlipidemia Mumps Non-insulin dependent type 2 diabetes mellitus Osteoarthritis Psoriasis Surgical History Anesthesia History of colonoscopy History of hysterectomy Status post rotator cuff repair Family History Father Cancer Mother Cancer Social History marital status: household members: spouse lives independently: Yes Smoking Status: Never smoker alcohol intake: never Discharge Plan Discharge Plan Patient Disposition: Home Provider Discharge Comment: Ms. Lopez was admitted with weakness and found to have significant fluid retention from her cirrhosis. She had only been taking lasix prior to being admitted. She did get a paracentesis and this removed 5L, she had no infection in the sample of fluid. She also was given IV lasix and had good urination to this medication. She was improving on day of discharge, initially she did need oxygen and was short of breath, but this improved. She will need close follow up with her PCP and gastroenterology specialist. She will be discharged on lasix 40mg daily, spironolactone 100mg daily. She should stop her losartan and potassium for now as she is starting spironolactone. She may need paracentesis in the future repeated. She will need close follow up with her PCP and skating rink ice maker to make sure her electrolytes remain stable. She was advised to have low salt diet, as that can help prevent fluid retention. She should monitor her weight closely, and for worsening retention of fluid which means her medicines may need to be at higher doses. And monitor for dehydration and dizziness so she does not get too much fluid removed. She should call her doctor if these are noticed Discharge orders & Medications Prescriptions: New spironolactone 100 mg tablet 100 mg PO DAILY Qty: 30 RF: 0 Continued CA PANTOTHENATE/FOLIC ACID/VIT (MULTIVITAMIN) 1 tab PO Q DAY Qty: 0 RF: 0 nadolol 40 mg tablet 40 mg PO DAILY RF: 0 metformin 500 mg tablet 1,000 mg PO BID RF: 0 levothyroxine [Synthroid] 100 mcg tablet 100 mcg PO DAILY RF: 0 Januvia 50 mg tablet 50 mg PO DAILY RF: 0 atorvastatin 10 mg tablet 10 mg PO BEDTIME RF: 0 Tremfya 100 mg/mL auto-injector 100 mg SUBCUT Q8W RF: 0 furosemide 40 mg tablet 40 mg PO DAILY Qty: 30 RF: 0 cholecalciferol (vitamin D3) [Vitamin D3] 25 mcg (1,000 unit) Tablet 25 mcg PO DAILY RF: 0 folic acid 800 mcg Tablet 800 mcg PO DAILY RF: 0 Discontinued losartan 25 mg tablet 25 mg PO DAILY RF: 0 potassium chloride 10 mEq capsule, extended release 10 meq PO DAILY Qty: 30 RF: 0 Follow up/Referrals: Trever Berger MD [Primary Care Provider] - Diet/Activity/Treatments Diet: Low-sodium Visit Report/Discharge Packet Instructions: DI for Abdominal Paracentesis, DI for Cirrhosis Discharge Data Primary Care Provider: Trever Berger [facility] - [place] The patient has current or prior documentation of left ventricular ejection fraction (LVEF) less than 40%, or moderate or severely depressed left ventricular systolic function.: No
[2021-03-17] MEDS: BENZONATATE 100 MG CAPSULE PO (08:41)
[2021-03-17] MEDS: FUROSEMIDE 40 MG/4 ML VIAL IV (08:43)
[2021-03-17 09:44] VITALS: BP 114/66; PULSE 68; RESP 16; TEMP 36.5; O2SAT 96
[2021-03-17 10:00] VITALS: O2SAT 97
--- NOTE | 2021-03-17 10:26 | PT.IPTN ---
Current Diagnoses Heart failure, unspecified (03/14/21) Unspecified cirrhosis of liver (03/14/21) Physical Therapy Treatment Note M2 PT-IP Current Condition Start: 03/16/21 12:47 Freq: NEEDED Status: Active Protocol: Document 03/16/21 11:45 AB (Rec: 03/16/21 12:58 AB [id number]) Physical Therapy Current Condition Current Condition Evaluation Date 03/16/21 Treatment Diagnosis CHF; difficulty in walking Onset Date 03/14/21 Precautions Other Precautions O2 sat M3 PT-IP Subjective Start: 03/16/21 12:47 Freq: NEEDED Status: Active Protocol: Document 03/17/21 09:54 CLB (Rec: 03/17/21 11:03 CLB [id number]) Subjective Physical Therapy Visit Type Type Treatment Note Visit Start Time 09:54 Visit Stop Time 10:26 Total Visit Minutes 32 Number of HEEL FINISHER Visits 1 Physical Therapy Visit Comments Patient Comments pt is agreeable to do PT Therapy Pain Assessment Pain Present Pain Present Denied Pain M4 PT-IP Mobility and Gait Start: 03/16/21 12:47 Freq: NEEDED Status: Active Protocol: Document 03/17/21 09:54 CLB (Rec: 03/17/21 11:03 CLB [id number]) PT-Bed Mobility Assessment Supine to Sit Supine to Sit Standby Assistance,Head of Bed Elevated,Bedrails PT-Transfer Assessment Sit to and From Stand Sit to and from Stand Standby Assistance,Contact Guard Assistance,1 Person Assistance,Use of Upper Extremities Equipment Transfer Assistive Device Gait Belt,Straight Cane Orthotic/Prosthetic Devices or Brace: No Transfers Transfer Destination Chair,Wheelchair Transfer Technique walked Transfer Ability Level of Assist Standby Assistance,Contact Guard Assistance,1 Person Assistance,Use of Upper Extremities Comments Mobility Comments Pt able to get to EOB SBA then stand from bed using SPC CGA. Pt ambulated ~6ft to WC sitting in WC SBA. Pt transferred to therapy stairs standing SBA with SPC and climbed three steps with left rail and SPC. Pt able to climb stairs SBA SpO2 88% increased to 91% within 30 seconds. Pt returned to room in WC. Pt stood SBA and ambulated ~100ft w/SPC/SBA with two standing rest breaks with SpO2 90-92%. Pt returned to room sitting in chair with all needs within reach, RN present. Gait Assessment Gait Gait Assistance Required: Standby Assistance,1 Person Assist Distance (Feet) 100 Able to Maintain Weight Bearing Status Yes During Gait Assistive Devices Assistive Device Gait Belt,Straight Cane Orthotic/Prosthetic Devices or Brace: No Gait Deviations General Gait Pattern Decreased Stride Length, Decreased Feet Clearance, Flexed Trunk Factors Limiting Gait Function Factors Limiting Gait Function Decreased Activity Tolerance, Decreased Strength,Poor Balance,Respiratory Distress Comments Gait Comments pls refer to mobility section for details Stair Climbing Assessment Evaluation Level of Assist On Stairs Standby Assistance Devices Stair Climbing Assistive Devices Straight Cane,Left Railing Technique/Endurance Stair Climbing Direction Ascend and Descend Stair Climbing Technique Step to Step Number of Steps Climbed 3 Stair Climbing Set # Repetitions (reps) 1 M5 PT-IP Objective Assessments Start: 03/16/21 12:47 Freq: NEEDED Status: Active Protocol: Document 03/16/21 11:45 AB (Rec: 03/16/21 12:58 AB [id number]) Orientation Orientation/Cognition Level of Alertness Alert Orientation Name,Situation Language Function Ability No Deficits Noted Safety Awareness Understands Safety Issues Memory Description No Deficits Noted Gross Range of Motion Lower Extremity ROM Assessment Within Functional Limits Strength Comments Strength Comments LLE: 4-/5 RLE 3+/5 Coordination Assessment Gross Coordination Gross Coordination WNL Muscle Tone Muscle Tone WNL Yes M6 PT-IP Treatment Start: 03/16/21 12:47 Freq: NEEDED Status: Active Protocol: Document 03/16/21 11:45 AB (Rec: 03/16/21 12:58 AB [id number]) Physical Therapy Treatment Education Education Provided Safety M7 PT-IP Assessment and Plan Start: 03/16/21 12:47 Freq: NEEDED Status: Active Protocol: Document 03/17/21 09:54 CLB (Rec: 03/17/21 11:03 CLB [id number]) PT Summary Assessment and Plan Potential Rehabilitation Potential Good Status of Condition at Evaluation Stable Summary Impairments Pain,ROM,Strength,Balance, Coordination,Sensation,Bed Mobility,Transfers,Gait, Activity Tolerance Assessment Summary Pt progressing with all mobility requiring SBA with bed mobility and CGA for sit to stand from bed then SBA for ambulation, transfers and sit <>stand. Pt SpO2 on RA after stairs 88% but remainded WNL during ambulation. Pt able to ambulate ~100ft w/SPC/SBA. Pt plans to go home with spouse to assist Goals Bed Mobility Goal Independent Transfer Goal Independent,Front Wheeled Walker Gait Goal Independent,Front Wheel Walker Gait Distance 150 Other Goals improve ambulation using SPC 100 ft SBA up/down 3 steps L rail ascending SBA Days to Meet Goals 10 Frequency of Treatment Frequency Of Treatment Once a Day Treatment Plan Physical Therapy Treatment Plan Bed Mobility Training,Transfer Training,Gait Training, Therapeutic Exercise,Balance Retraining,Discharge Planning, Hot or Cold Pack,Neuromuscular Re-ed,Coordination Retraining Precautions Other Precautions O2 sat Recommendations To Nursing Amount of Assist Needed 1 Person Assist Discharge Recommendations PT Discharge Recommendations Home with Assistance,Home Health Transportation Needs at Discharge Private Vehicle
--- NOTE | 2021-03-17 10:36 | PC.NURSE ---
Broderick catheter removed, patient tolerated.
--- NOTE | 2021-03-17 11:27 | DIET.PN ---
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 Pt started noticing issues c abdominal swelling in Nov 24 c increasing weight loss and muscle weakness. Pt started seeing physician to manage this but has barriers to care including global pandemic and growing up with mentality of not asking for help. Pt has become so weak she no longer gardens, grocery shops, or leaves the home. The day of her admission pt was stuck on the floor all day, too weak to get up. Per pts , he had to put the house back together because she had tipped over furniture attempting unsuccessfully to self-transfer up off the floor. Pt reports eating two meals per day, usually only a few bites at a time before getting full. Pt and her report they regularly eat processed foods and salty items ([employer], cup of noodle, chips, crackers), but note that pt has her DM under good control (BG 120-153 this hospitalization). NFPE of pt shows severe muscle and fat wasting system wide with large amounts of baggy stretched skin on upper arms, abdomen, and legs draping her small frame. Pt had 5L drained from abd ascites upon admission and much of that refilled within 24h so weights are inaccurately reflecting pts nutrition state. Pt currently being diuresed under direction of hospitalist. Today pt is -2.6L per I&O log. HT: 170.1cm WT: 99.2kg (inaccurate r/t fluid overload) UBW: 136kg BMI: 34 (inaccurate) Pt is -27% of her UBW Labs:AST 73 H, ALT 57 H, Alk phos 286 H, TP 6.1 L, Alb 3.1 L, BNP 2170 H MNA:not calculated Arnaud:18 Nutrition Diagnosis: Severe Acute on Chronic Protein Calorie Malnutrition r/t end stage organ disease (cirrhosis) aeb pt is -27% UBW, pt food recall meeting <25% EER with long periods of fasting, imaging showing shrunken nodular liver, pt had 5L removed from ascites, NFPE shows global severe muscle and fat wasting c large amounts of loose skin, pt admitted after not being able to get up off the floor for an entire day. Interventions: 1. Discussed role of diuretics and sodium intake on fluid status. Reviewed hidden salt sources in diet and using handout educated pt and spouse on sodium and label reading. Discussed alternate seasonings to salt. 2. Discussed liver disease and importance for small, frequent meals to avoid prolonged periods of fasting. Encouraged pt to consume egg whites daily and snack on spoonfuls of nutbutters to maximize calorie and protein with small appetite. Diet Order: sodium restriction EER: eat small amounts frequently through the day, 2g sodium max Monitoring/Evaluations: POs, weight, I&O
--- NOTE | 2021-03-17 14:18 | CM.DPNOTE ---
DC Note Patient has been discharged today, patient eager to return home. Patient plans to return home w/spouse to assist, patient feels no need for HH at this time. Therapy has cleared patient for return home. Plan: Home w/spouse and close outpatient f/u recommended. MOOSE
--- NOTE | 2021-03-17 14:24 | PC.NURSE ---
Am shift Pt up working with PT , with plans to dc later today home with SO. SBA FWW. Broderick out and voiding without difficulty. IV removed. Pt in wc to private vehicle after lunch. Follow up and meds reviewed and Pt will be seeing GI and PCP this week.
== END 2021-03-17 14:26 | disposition home or self-care (01) | DRG 432 ==
LOC: ED 03-14 07:04 → AC 03-14 10:09
PROVIDERS: Internal Medicine; Admitting Provider Nurse Practitioner Family; Emergency Provider Emergency Medicine; PCP Student in an Organized Health Care Education/Training Program; Referring Provider Emergency Medicine; Visit Provider Nurse Practitioner Family
DX: K74.60 Unspecified cirrhosis of liver (principal); J81.0 Acute pulmonary edema; J96.01 Acute respiratory failure with hypoxia; R18.8 Other ascites; D64.9 Anemia, unspecified; D69.6 Thrombocytopenia, unspecified; K72.10 Chronic hepatic failure without coma; E27.9 Disorder of adrenal gland, unspecified; I10 Essential (primary) hypertension; E78.5 Hyperlipidemia, unspecified; E11.9 Type 2 diabetes mellitus without complications; L40.9 Psoriasis, unspecified; E03.9 Hypothyroidism, unspecified; Z79.84 Long term (current) use of oral hypoglycemic drugs
CPT/HCPCS: 36415; 49083; 71045; 74176; 76700; 80048; 80053; 80061; 80076; 82042; 82550; 82553; 82962; 83036; 83605; 83690; 83735; 83880; 84157; 84484; 85025; 85027; 85610; 85730; 86850; 86900; 86901; 87635; 89051; 93005; 93010; 93306; 96361; 96374; 97116; 97161; 99284; C9803; J1815; J1940; J3475; P9041